=== PATIENT | male | born 1955 | race Two or more races ===

== ENCOUNTER 2021-10-09 17:02 | Inpatient (IN) | payer MEDICARE ==
[~2021-10-09] VITALS: Ht 167.6 cm; Wt 100.1 kg
[~2021-10-09 17:02] MED LIST: LISI20TA18 PO; METF500T16 PO
[2021-10-09] MEDS ORDERED: ASPIRIN 325 MG TABLET PO ONE (17:30)
[2021-10-09] MEDS ORDERED: MORPHINE SULFATE 4 MG/ML INJ. IV/SQ PRN (17:30)
[2021-10-09] MEDS ORDERED: NITROGLYCERIN SUBLINGUAL 0.4 MG BOTTLE OF 25. SL PRN ×2 (17:30→20:00)
[2021-10-09 17:46] LABS: BASO % 0 % (0-3); EOS % 0 % (0-3); HEMATOCRIT 41.9 % (39.0-53.0); HEMOGLOBIN 14.2 g/dL (13.0-17.5); LYMPH # 0.9 x10^3/uL (1.0-4.8); LYMPH % 11 % (24-48); MEAN CORPUSCULAR HEMOGLOBIN 33 pg (25-35); MEAN CORPUSCULAR HGB CONC 34 g/dL (31-37); MEAN CORPUSCULAR VOLUME 97 fL (79-100); MONO # 0.5 x10^3/uL (0.0-1.1); MONO % 6 % (0-9); NEUT # 6.4 x10^3/uL (1.8-7.7); NEUT % 82 % (31-73); PLATELET COUNT 114 x10^3/uL (140-400); RED BLOOD COUNT 4.32 x10^6/uL (4.30-5.70); RED CELL DISTRIBUTION WIDTH 13.2 % (11.5-14.5); WHITE BLOOD COUNT 7.7 x10^3/uL (4.0-11.0)
[2021-10-09 17:55] LABS: CALCIUM 7.9 mg/dL (8.5-10.1); CREATININE 1.2 mg/dL (0.7-1.3); GFR 60.8; POTASSIUM 4.3 mmol/L (3.5-5.1)
[2021-10-09 17:56] LABS: PROTHROMBIN TIME PATIENT 13.9 SEC (11.7-14.0)
[2021-10-09 17:58] LABS: ALBUMIN 3.4 g/dL (3.4-5.0); ALBUMIN/GLOBULIN RATIO 0.9 (1.0-1.7); MAGNESIUM 1.8 mg/dL (1.8-2.4); TOTAL BILIRUBIN 0.9 mg/dL (0.2-1.0); TOTAL PROTEIN 7.3 g/dL (6.4-8.2)
[2021-10-09 17:58] LABS: INFLUENZA A PATIENT NEGATIVE (NEGATIVE); INFLUENZA B PATIENT NEGATIVE (NEGATIVE)
--- NOTE | 2021-10-09 18:36 | PHYS DOC ---
Past Medical History Past Medical History: Diabetes-Type II, High Cholesterol, Hypertension Past Surgical History: Other Additional Past Surgical Histo: BILATERAL KNEE REPAIR Smoking Status: Never Smoker Alcohol Use: None Drug Use: None General Adult EDM: Chief Complaint: CHEST PAIN HPI: HPI: Patient is a 66 year old male with history of diabetes type 2, hypertension, high cholesterol, presenting to the ED today complaining of intermittent left- sided chest pain, symptoms have been going on for 2 months but got worse today. Patient denies any chest pain right now in the ED. Patient is also complaining of shortness of breath and a cough that began 3 days ago, he states his has similar symptoms, he states he had a Covid first dose of Pfizer vaccine around September 27, 2021. Patient denies any fever. He states he was seen by his assistant kitchen manager Dr. Escobar this morning and was scheduled to be seen on Thursday. He states he cannot wait till then because he continues to have this chest pain especially on exertion. Review of Systems: Review of Systems: Constitutional: Denies fever or chills. [] Eyes: Denies change in visual acuity. [] HENT: Denies nasal congestion or sore throat. [] Respiratory: Reports shortness of breath, cough Cardiovascular: Reports left-sided chest pain GI: Denies abdominal pain, nausea, vomiting, bloody stools or diarrhea. [] : Denies dysuria. [] Musculoskeletal: Denies back pain or joint pain. [] Integument: Denies rash. [] Neurologic: Denies headache, focal weakness or sensory changes. [] Endocrine: Denies polyuria or polydipsia. [] Lymphatic: Denies swollen glands. [] Psychiatric: Denies depression or anxiety. [] Heart Score: C/O Chest Pain: N/A Risk Factors: Risk Factors: DM, Current or recent (<one month) smoker, HTN, HLP, family hist ory of CAD, obesity. Risk Scores: Score 0 - 3: 2.5% MACE over next 6 weeks - Discharge Home Score 4 - 6: 20.3% MACE over next 6 weeks - Admit for Clinical Observation Score 7 - 10: 72.7% MACE over next 6 weeks - Early Invasive Strategies Current Medications: Current Medications Medications (Trade) Dose Ordered Sig/Jodi Start Time Stop Time Status Last Admin Dose Admin Aspirin (Aj Aspirin) 325 mg 1X ONCE 10/09/21 17:30 10/09/21 17:31 DC 10/09/21 17:57 325 MG Morphine Sulfate (Morphine Sulfate) 4 mg PRN Q15MIN PRN 10/09/21 17:30 10/10/21 17:29 Nitroglycerin (Nitrostat) 0.4 mg PRN Q5MIN PRN 10/09/21 17:30 10/10/21 17:29 Allergies: Allergies: Allergies Coded Allergies Type Severity Reaction Last Updated Verified No Known Drug Allergies 08/11/14 No Physical Exam: PE: Constitutional: Well developed, well nourished, no acute distress, non-toxic appearance. [] HENT: Normocephalic, atraumatic, bilateral external ears normal, oropharynx moist, no oral exudates, nose normal. [] Eyes: PERRLA, EOMI, conjunctiva normal, no discharge. [] Neck: Normal range of motion, no tenderness, supple, no stridor. [] Cardiovascular:Heart rate regular rhythm, no murmur [] Lungs & Thorax: Bilateral breath sounds clear to auscultation [] Abdomen: Bowel sounds normal, soft, no tenderness, no masses, no pulsatile masses. [] Skin: Warm, dry, no erythema, no rash. [] Back: No tenderness, no CVA tenderness. [] Extremities: No tenderness, no cyanosis, no clubbing, ROM intact, no edema. [] Neurologic: Alert and oriented X 3, normal motor function, normal sensory function, no focal deficits noted. [] Psychologic: Affect normal, judgement normal, mood normal. [] Current Patient Data: Labs: Laboratory Tests Test 10/09/21 17:23 10/09/21 17:30 Influenza Type A Antigen Negative (NEGATIVE) Influenza Type B Antigen Negative (NEGATIVE) SARS-CoV-2 Antigen (Rapid) Positive (NEGATIVE) *A White Blood Count 7.7 x10^3/uL (4.0-11.0) Red Blood Count 4.32 x10^6/uL (4.30-5.70) Hemoglobin 14.2 g/dL (13.0-17.5) Hematocrit 41.9 % (39.0-53.0) Mean Corpuscular Volume 97 fL (79-100) Mean Corpuscular Hemoglobin 33 pg (25-35) Mean Corpuscular Hemoglobin Concent 34 g/dL (31-37) Red Cell Distribution Width 13.2 % (11.5-14.5) Platelet Count 114 x10^3/uL (140-400) L Neutrophils (%) (Auto) 82 % (31-73) H Lymphocytes (%) (Auto) 11 % (24-48) L Monocytes (%) (Auto) 6 % (0-9) Eosinophils (%) (Auto) 0 % (0-3) Basophils (%) (Auto) 0 % (0-3) Neutrophils # (Auto) 6.4 x10^3/uL (1.8-7.7) Lymphocytes # (Auto) 0.9 x10^3/uL (1.0-4.8) L Monocytes # (Auto) 0.5 x10^3/uL (0.0-1.1) Eosinophils # (Auto) 0.0 x10^3/uL (0.0-0.7) Basophils # (Auto) 0.0 x10^3/uL (0.0-0.2) Prothrombin Time 13.9 SEC (11.7-14.0) Prothrombin Time INR 1.1 (0.8-1.1) Activated Partial Thromboplast Time 31 SEC (24-38) Sodium Level 130 mmol/L (136-145) L Potassium Level 4.3 mmol/L (3.5-5.1) Chloride Level 92 mmol/L (98-107) L Carbon Dioxide Level 24 mmol/L (21-32) Anion Gap 14 (6-14) Blood Urea Nitrogen 26 mg/dL (8-26) Creatinine 1.2 mg/dL (0.7-1.3) Estimated GFR (Cockcroft-Gault) 60.8 BUN/Creatinine Ratio 22 (6-20) H Glucose Level 203 mg/dL (70-99) H Calcium Level 7.9 mg/dL (8.5-10.1) L Magnesium Level 1.8 mg/dL (1.8-2.4) Total Bilirubin 0.9 mg/dL (0.2-1.0) Aspartate Amino Transferase (AST) 63 U/L (15-37) H Alanine Aminotransferase (ALT) 56 U/L (16-63) Alkaline Phosphatase 67 U/L (46-116) Troponin I High Sensitivity 8 ng/L (4-75) WU-Mqw-[id number]-Type Natriuretic Peptide 28 pg/mL (0-124) Total Protein 7.3 g/dL (6.4-8.2) Albumin 3.4 g/dL (3.4-5.0) Albumin/Globulin Ratio 0.9 (1.0-1.7) L Thyroid Stimulating Hormone (TSH) 1.541 uIU/mL (0.358-3.74) Laboratory Tests 10/09/21 17:30 Laboratory Tests 10/09/21 17:30 Vital Signs: Vital Signs Date Time Temp Pulse Resp B/P (MAP) Pulse Ox O2 Delivery O2 Flow Rate FiO2 10/09/21 17:06 100.2 108 28 146/75 (98) 92 Room Air 100.2 EKG: EK interpreted by Dr. Rubi sinus tachycardia heart rate 108 no STEMI [] Radiology/Procedures: Radiology/Procedures: [] Course & Med Decision Making: Course & Med Decision Making Pertinent Labs and Imaging studies reviewed. (See chart for details) This is a 66-year-old male patient presented to the ED today complaining of chest pain intermittently for 2 months. Patient is also complaining of cough and shortness of breath, symptoms began 3 days ago. Vitals on arrival to the ED temperature 100.2, heart rate 108, respiration 22 on room air, O2 sats 92%, blood pressure 146/75. EKG is negative for STEMI, first troponin is normal, CBC with a normal WBC, pl atelet 114. CMP with glucose of 205-history of diabetes type 2. COVID19 positive Chest x-ray is pending Spoke with Dr. Dunham who accepted patient for admission Spoke with Dr. Escobar who will follow up with patient Anthony Disclaimer: Anthony Disclaimer: This electronic medical record was generated, in whole or in part, using a voice recognition dictation system. Departure Departure Impression: Primary Impression: Chest pain Qualified Codes: R07.9 - Chest pain, unspecified Additional Impressions: Lab test positive for detection of COVID-19 virus Fever Qualified Codes: R50.9 - Fever, unspecified Disposition: ADMITTED INPATIENT Condition: STABLE Referrals: GANESH GRULLON MD (PCP) CHERELLE MCINTOSH [employer] Oct 09, 2021 18:36
--- NOTE | 2021-10-09 19:47 | PDOC1 ---
History and Physical Date of Service: DOS: DATE: 10/09/21 TIME: 19:41 Chief Complaint: Chief Complain: Chest pain. History of Present Illness: HPI: 66 year old male with history of diabetes type 2, hypertension, high cholesterol, presenting to the ED today complaining of intermittent left-sided chest pain, symptoms have been going on for 2 months but got worse today. Patient denies any chest pain right now in the ED. Patient is also complaining of shortness of breath and a cough that began 2 days ago. Patient denies any fever. He states he was seen by his final cleaner Dr. Escobar this morning and was scheduled to have stent placement on Thursday. He states he cannot wait till then because he continues to have this chest pain especially on exertion. Past Medical/Surgical History: PMH/PSH: Past Medical History: Diabetes-Type II, High Cholesterol, Hypertension Past Surgical History: BILATERAL KNEE REPAIR Allergies: Allergies: Coded Allergies: No Known Drug Allergies (Unverified , 08/11/14) Family History: Family History: Heart disease in the family Social History: Social History: Smoking Status: Never Smoker Alcohol Use: None Drug Use: None Current Medications: Current Medications Current Medications Aspirin (Aj Aspirin) 325 mg 1X ONCE PO Last administered on 10/09/21at 17:57; Start 10/09/21 at 17:30; Stop 10/09/21 at 17:31; Status DC Nitroglycerin (Nitrostat) 0.4 mg PRN Q5MIN PRN SL CP RATING > 1/10; Start 10/09/21 at 17:30; Stop 10/10/21 at 17:29 Morphine Sulfate (Morphine Sulfate) 4 mg PRN Q15MIN PRN IV/SQ PAIN GREATER THAN 3/10; Start 10/09/21 at 17:30; Stop 10/10/21 at 17:29 Active Scripts Active Reported Lisinopril 20 Mg Tablet 1 Tab PO DAILY Metformin Hcl 500 Mg Tablet 1 Tab PO BID ROS: Review of Systems Review of System REVIEW OF SYSTEMS: GENERAL: Denies weakness SKIN: No bruising, hair changes or rashes. EYES: No blurred, double or loss of vision. NOSE AND THROAT: No history of nosebleeds, hoarseness or sore throat. HEART: No history of palpitations, chest pain or shortness of breath on exertion. LUNGS: Denies cough, hemoptysis, wheezing or shortness of breath. GASTROINTESTINAL: Denies changes in appetite, nausea, vomiting, diarrhea or constipation. GENITOURINARY: No history of frequency, urgency, hesitancy or nocturia. NEUROLOGIC: Denies history of numbness, tingling, or tremor. PSYCHIATRIC: No history of panic, anxiety or depression. ENDOCRINE: No history of heat or cold intolerance, polyuria or polydipsia. EXTREMITIES: Denies joint pain, pain on walking or stiffness. Physical Exam: Vital Signs: Vital Signs Date Time Temp Pulse Resp B/P (MAP) Pulse Ox O2 Delivery O2 Flow Rate FiO2 10/09/21 17:06 100.2 108 28 146/75 (98) 92 Room Air 100.2 Physcial Exam: General: Well developed, well nourished, no acute distress, well appearing HEENT: Pupils equally round and reactive to light, EOMI, no discharge, normal conjunctiva Neck: Supple, no nuchal rigidity, no JVD, trachea midline, no tenderness Cardiac: RRR, no murmurs, no gallops, no rubs Chest/Lungs: CTAB, no wheeze, no rhonchi, no crackles Abdomen: soft, non-distended, no guarding, no peritoneal signs, non-tender Back: No tenderness Extremities: no edema, pulses intact, non-tender,capillary refill <3 sec bilateral upper and lower extremities, Neuro: Alert and oriented x 4, no focal deficits, normal speech Labs: Labs: Laboratory Tests Test 10/09/21 17:23 10/09/21 17:30 Influenza Type A Antigen Negative (NEGATIVE) Influenza Type B Antigen Negative (NEGATIVE) SARS-CoV-2 Antigen (Rapid) Positive (NEGATIVE) White Blood Count 7.7 x10^3/uL (4.0-11.0) Red Blood Count 4.32 x10^6/uL (4.30-5.70) Hemoglobin 14.2 g/dL (13.0-17.5) Hematocrit 41.9 % (39.0-53.0) Mean Corpuscular Volume 97 fL (79-100) Mean Corpuscular Hemoglobin 33 pg (25-35) Mean Corpuscular Hemoglobin Concent 34 g/dL (31-37) Red Cell Distribution Width 13.2 % (11.5-14.5) Platelet Count 114 x10^3/uL (140-400) Neutrophils (%) (Auto) 82 % (31-73) Lymphocytes (%) (Auto) 11 % (24-48) Monocytes (%) (Auto) 6 % (0-9) Eosinophils (%) (Auto) 0 % (0-3) Basophils (%) (Auto) 0 % (0-3) Neutrophils # (Auto) 6.4 x10^3/uL (1.8-7.7) Lymphocytes # (Auto) 0.9 x10^3/uL (1.0-4.8) Monocytes # (Auto) 0.5 x10^3/uL (0.0-1.1) Eosinophils # (Auto) 0.0 x10^3/uL (0.0-0.7) Basophils # (Auto) 0.0 x10^3/uL (0.0-0.2) Prothrombin Time 13.9 SEC (11.7-14.0) Prothromb Time International Ratio 1.1 (0.8-1.1) Activated Partial Thromboplast Time 31 SEC (24-38) Sodium Level 130 mmol/L (136-145) Potassium Level 4.3 mmol/L (3.5-5.1) Chloride Level 92 mmol/L (98-107) Carbon Dioxide Level 24 mmol/L (21-32) Anion Gap 14 (6-14) Blood Urea Nitrogen 26 mg/dL (8-26) Creatinine 1.2 mg/dL (0.7-1.3) Estimated GFR (Cockcroft-Gault) 60.8 BUN/Creatinine Ratio 22 (6-20) Glucose Level 203 mg/dL (70-99) Calcium Level 7.9 mg/dL (8.5-10.1) Magnesium Level 1.8 mg/dL (1.8-2.4) Total Bilirubin 0.9 mg/dL (0.2-1.0) Aspartate Amino Transf (AST/SGOT) 63 U/L (15-37) Alanine Aminotransferase (ALT/SGPT) 56 U/L (16-63) Alkaline Phosphatase 67 U/L (46-116) Troponin I High Sensitivity 8 ng/L (4-75) WD-Dnm-A-Type Natriuretic Peptide 28 pg/mL (0-124) Total Protein 7.3 g/dL (6.4-8.2) Albumin 3.4 g/dL (3.4-5.0) Albumin/Globulin Ratio 0.9 (1.0-1.7) Thyroid Stimulating Hormone (TSH) 1.541 uIU/mL (0.358-3.74) Laboratory Tests Test 10/09/21 17:23 10/09/21 17:30 Influenza Type A Antigen Negative (NEGATIVE) Influenza Type B Antigen Negative (NEGATIVE) SARS-CoV-2 Antigen (Rapid) Positive (NEGATIVE) White Blood Count 7.7 x10^3/uL (4.0-11.0) Red Blood Count 4.32 x10^6/uL (4.30-5.70) Hemoglobin 14.2 g/dL (13.0-17.5) Hematocrit 41.9 % (39.0-53.0) Mean Corpuscular Volume 97 fL (79-100) Mean Corpuscular Hemoglobin 33 pg (25-35) Mean Corpuscular Hemoglobin Concent 34 g/dL (31-37) Red Cell Distribution Width 13.2 % (11.5-14.5) Platelet Count 114 x10^3/uL (140-400) Neutrophils (%) (Auto) 82 % (31-73) Lymphocytes (%) (Auto) 11 % (24-48) Monocytes (%) (Auto) 6 % (0-9) Eosinophils (%) (Auto) 0 % (0-3) Basophils (%) (Auto) 0 % (0-3) Neutrophils # (Auto) 6.4 x10^3/uL (1.8-7.7) Lymphocytes # (Auto) 0.9 x10^3/uL (1.0-4.8) Monocytes # (Auto) 0.5 x10^3/uL (0.0-1.1) Eosinophils # (Auto) 0.0 x10^3/uL (0.0-0.7) Basophils # (Auto) 0.0 x10^3/uL (0.0-0.2) Prothrombin Time 13.9 SEC (11.7-14.0) Prothromb Time International Ratio 1.1 (0.8-1.1) Activated Partial Thromboplast Time 31 SEC (24-38) Sodium Level 130 mmol/L (136-145) Potassium Level 4.3 mmol/L (3.5-5.1) Chloride Level 92 mmol/L (98-107) Carbon Dioxide Level 24 mmol/L (21-32) Anion Gap 14 (6-14) Blood Urea Nitrogen 26 mg/dL (8-26) Creatinine 1.2 mg/dL (0.7-1.3) Estimated GFR (Cockcroft-Gault) 60.8 BUN/Creatinine Ratio 22 (6-20) Glucose Level 203 mg/dL (70-99) Calcium Level 7.9 mg/dL (8.5-10.1) Magnesium Level 1.8 mg/dL (1.8-2.4) Total Bilirubin 0.9 mg/dL (0.2-1.0) Aspartate Amino Transf (AST/SGOT) 63 U/L (15-37) Alanine Aminotransferase (ALT/SGPT) 56 U/L (16-63) Alkaline Phosphatase 67 U/L (46-116) Troponin I High Sensitivity 8 ng/L (4-75) QU-Wns-J-Type Natriuretic Peptide 28 pg/mL (0-124) Total Protein 7.3 g/dL (6.4-8.2) Albumin 3.4 g/dL (3.4-5.0) Albumin/Globulin Ratio 0.9 (1.0-1.7) Thyroid Stimulating Hormone (TSH) 1.541 uIU/mL (0.358-3.74) Images: Images PROCEDURE: PORTABLE CHEST 1V Study: XR CHEST 1V Indication: Chest pain. Comparison: 08/03/2014 Findings: Low lung volumes with bronchovascular crowding. Lordotic beam angulation. Streaky opacities at left more so than right lung bases. No layering effusion or pneumothorax. Accentuation of cardiomediastinal silhouette size due to low lung volumes and AP technique. Gas containing bowel seen below the diaphragm without pathologic dilatation. Impression: Low lung volumes with presumed atelectasis at the left more so than right lung bases noting that the appearance is nonspecific and infectious infiltrates or aspiration could appear similar. Assessment/Plan Assessment/Plan Atypical chest pain, rule out ACS Acute electrolyte derangementhyponatremia, hypochloremia suggestive of volume depletion COVID-19 infection Hyperglycemia Thrombocytopenia History of type 2 diabetes mellitus History of hypertension History of dyslipidemia Admit to hospitalist service for observation Continue telemetry monitoring Trend troponins Continue IV fluids R ISS and Accu-Cheks SCD for DVT prophylaxis Protonix GI prophylaxis ADA diet CODE STATUS full Discussed with RN and SW Disposition inpatient management as above DPOA: In addition to my E/M visit, advance care planning done with A total time of 20 minutes was spent from 630 to 640 face to face in discussion regarding the patient's goals of care, CODE STATUS. Justifications for Admission Other Justification DAMIEN DIAZ MD Oct 09, 2021 19:47
[2021-10-09] MEDS ORDERED: ACETAMINOPHEN 325 MG TABLET. PO PRN (20:00)
[2021-10-09] MEDS ORDERED: ONDANSETRON PF 4 MG/2 ML VIAL. IVP PRN ×2 (20:00→21:15)
[2021-10-09] MEDS ORDERED: MORPHINE SULFATE 4 MG/ML INJ. IVP PRN (20:00)
[2021-10-09] MEDS ORDERED: ACETAMINOPHEN 500 MG TABLET PO ONE (20:00)
[2021-10-09] MEDS ORDERED: IV NORMAL SALINE 1000ML BAG 1,000 ML IV ONE (20:00)
[2021-10-09] MEDS ORDERED: FAMOTIDINE 20 MG/2 ML VIAL IVP ONE (20:30)
--- NOTE | 2021-10-09 20:54 | RAD ---
Study: XR CHEST 1V Indication: Chest pain. Comparison: 08/03/2014 Findings: Low lung volumes with bronchovascular crowding. Lordotic beam angulation. Streaky opacities at left more so than right lung bases. No layering effusion or pneumothorax. Accent uation of cardiomediastinal silhouette size due to low lung volumes and AP technique. Gas containing bowel seen below the diaphragm without pathologic dilatation. Impression: Low lung volumes with presumed atelectasis at the left more so than right lung bases noting that the appearance is nonspecific and infectious infiltrates or aspiration could appear similar. Electronically signed by: RAVIN JOHNSON MD (10/09/2021 8:52 PM) [facility]
[2021-10-09] MEDS ORDERED: MORPHINE SULFATE 2 MG/ML INJ. IVP PRN (21:15)
[2021-10-09] MEDS ORDERED: ZOLPIDEM 5 MG TABLET. PO PRN (21:15)
[2021-10-09] MEDS ORDERED: PROCHLORPERAZINE 10 MG/2 ML VIAL. IV PRN (21:15)
[2021-10-09] MEDS ORDERED: SENNOSIDES 8.6 MG TABLET PO PRN (21:15)
[2021-10-09] MEDS ORDERED: DEXTROSE 50% 25 GM / 50ML DISP.SYRIN. IV PRN (21:15)
[2021-10-09] MEDS ORDERED: diphenhydrAMINE 50 MG/ML VIAL IVP PRN (21:15)
[2021-10-09] MEDS ORDERED: diphenhydrAMINE HCL 25 MG CAPSULE PO PRN (21:15)
[2021-10-09] MEDS: ENOXAPARIN 40 MG/0.4 ML SYRINGE. SQ SCH (23:04)
[2021-10-10 02:35] VITALS: BP 118/71
[2021-10-10] MEDS ORDERED: ATOR10TA PO (03:39)
[2021-10-10 04:56] LABS: BASO % 0 % (0-3); EOS % 0 % (0-3); HEMATOCRIT 36.3 % (39.0-53.0); HEMOGLOBIN 12.3 g/dL (13.0-17.5); LYMPH % 14 % (24-48); MEAN CORPUSCULAR HEMOGLOBIN 33 pg (25-35); MEAN CORPUSCULAR HGB CONC 34 g/dL (31-37); MEAN CORPUSCULAR VOLUME 98 fL (79-100); MONO # 0.5 x10^3/uL (0.0-1.1); MONO % 7 % (0-9); NEUT # 5.4 x10^3/uL (1.8-7.7); NEUT % 78 % (31-73); PLATELET COUNT 100 x10^3/uL (140-400); RED BLOOD COUNT 3.72 x10^6/uL (4.30-5.70); RED CELL DISTRIBUTION WIDTH 12.8 % (11.5-14.5); WHITE BLOOD COUNT 6.9 x10^3/uL (4.0-11.0)
[2021-10-10 05:22] LABS: ALBUMIN 2.7 g/dL (3.4-5.0); ALBUMIN/GLOBULIN RATIO 0.6 (1.0-1.7); CALCIUM 7.4 mg/dL (8.5-10.1); CREATININE 0.9 mg/dL (0.7-1.3); GFR 84.7; MAGNESIUM 1.8 mg/dL (1.8-2.4); TOTAL BILIRUBIN 0.8 mg/dL (0.2-1.0); TOTAL PROTEIN 6.9 g/dL (6.4-8.2)
[2021-10-10 05:33] LABS: POTASSIUM 3.8 mmol/L (3.5-5.1)
[2021-10-10 07:00] VITALS: BP 145/73
[2021-10-10] MEDS: INSULIN LISPRO 300 UNITS/3 ML VIAL. SQ SCH ×3 (08:00→17:10)
[2021-10-10] MEDS ORDERED: ASPIRIN 325 MG TABLET PO SCH (08:00)
--- NOTE | 2021-10-10 08:34 | EKG ---
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
[2021-10-10] MEDS: IV NORMAL SALINE 1000ML BAG 1,000 ML IV SCH ×2 (09:02→19:59)
[2021-10-10] MEDS: ACETAMINOPHEN 325 MG TABLET. PO PRN (09:07)
[2021-10-10] MEDS: cefTRIAXone IV Push 1 GM VIAL. IVP SCH (09:53)
[2021-10-10] MEDS: metFORMIN 500 MG TABLET PO SCH ×2 (09:54→17:08)
[2021-10-10] MEDS: DEXAMETHASONE SOD PHOS 4 MG/ML VIAL IVP SCH (09:54)
[2021-10-10] MEDS: LISINOPRIL 20 MG TABLET PO SCH (09:54)
--- NOTE | 2021-10-10 10:44 | PDOC2 ---
CHAITANYA LANZA EMERGENCY SERVICES DISPATCHER 10/10/21 1044: CARDIAC CONSULT DATE OF CONSULT Date of Consult DATE: 10/10/21 TIME: 10:28 REASON FOR CONSULT Reason for Consult: Chest pain REFERRING PHYSICIAN Referring Physician: Morena SOURCE Source: Chart review, Patient HISTORY OF PRESENT ILLNESS HISTORY OF PRESENT ILLNESS This is a pleasant 66 yo male admitted for complains of chest pain. Reports that in the last month he has been having chest pressure and also SOA particularly with exertion. He typically exercise which for the most part involved a lot of stretching and so far with just this activity he feels exhausted. In the last week this has intesified and has been having more SOA and also some chills at home and nonproductive cough. He was seen in our office yesterday and ischemic workup was discussed. He came to ED and has been tested positive for covid-19. He is diabetic with strong family history of CAD in the 60s. Denies any recent surgery. He actually had his first covid-19 shot 2 weeks ago. He also has been having episodes of nausea. PAST MEDICAL HISTORY Cardiovascular: HTN, Hyperlipidemia GI: Hemorrhoids Musculoskeletal: Osteoarthritis ENT: Other (Hay fever) Endocrine: Diabetes (2) PAST SURGICAL HISTORY Past Surgical History: Arthroscopy (bilateral knee) FAMILY HISTORY Family History: Coronary Artery Disease (brothers) SOCIAL HISTORY Smoke: No ALCOHOL: none Drugs: None Lives: with Family CURRENT MEDICATIONS CURRENT MEDICATIONS Current Medications Medications (Trade) Dose Ordered Sig/Jodi Route PRN Reason Start Time Stop Time Status Last Admin Dose Admin Aspirin (Aj Aspirin) 325 mg 1X ONCE PO 10/09/21 17:30 10/09/21 17:31 DC 10/09/21 17:57 Acetaminophen (Tylenol) 1,000 mg 1X ONCE PO 10/09/21 20:00 10/09/21 20:01 DC 10/09/21 21:03 Sodium Chloride 1,000 ml @ 75 mls/hr 1X ONCE IV 10/09/21 20:00 10/10/21 09:19 DC 10/09/21 21:04 Famotidine (Pepcid Vial) 20 mg 1X ONCE IVP 10/09/21 20:30 10/09/21 20:31 DC 10/09/21 21:04 Aspirin (Aj Aspirin) 325 mg DAILYWBKFT PO 10/10/21 08:00 10/10/21 09:07 Acetaminophen (Tylenol) 650 mg PRN Q4HRS PRN PO TEMP OVER 100.4F OR MILD PAIN 10/09/21 21:15 10/10/21 09:07 Enoxaparin Sodium (Lovenox 40mg Syringe) 40 mg Q24H SQ 10/09/21 21:00 10/09/21 23:04 Lisinopril (Prinivil) 20 mg DAILY PO 10/10/21 10:00 10/10/21 09:54 Metformin HCl (Glucophage) 500 mg BIDWMEALS PO 10/10/21 10:00 10/10/21 09:54 Dexamethasone Sodium Phosphate (Decadron) 6 mg DAILY IVP 10/10/21 10:00 10/10/21 09:54 Ceftriaxone Sodium (Rocephin) 1 gm Q24H IVP 10/10/21 10:00 10/10/21 09:53 ALLERGIES ALLERGIES: Coded Allergies: No Known Drug Allergies (Unverified , 08/11/14) ROS Review of System 14 point ROS evaluated with pertinent positives noted per HPI PHYSICAL EXAM General: Alert, Oriented X3, Cooperative, No acute distress HEENT: Atraumatic, Mucous membr. moist/pink Lungs: Clear to auscultation, Normal air movement Heart: Regular rate, Normal S1, Normal S2, No murmurs Abdomen: Soft, No tenderness, Other (truncakl obesity) Extremities: No cyanosis, No edema Skin: No breakdown, No significant lesion Neuro: Normal speech, Sensation intact Psych/Mental Status: Mental status NL, Mood NL MUSCULOSKELETAL: Osteoarthritic changes both hands VITALS/I&O VITALS/I&O: Vital Signs Date Time Temp Pulse Resp B/P (MAP) Pulse Ox O2 Delivery O2 Flow Rate FiO2 10/10/21 09:54 87 145/73 10/10/21 07:00 100.5 20 93 Room Air 100.5 I & O 10/09/21 10/09/21 10/10/21 15:00 23:00 07:00 Intake Total 0 ml Balance 0 ml LABS Lab: Laboratory Tests Test 10/09/21 17:23 10/09/21 17:30 10/09/21 20:40 10/09/21 23:40 Influenza Type A Antigen Negative (NEGATIVE) Influenza Type B Antigen Negative (NEGATIVE) SARS-CoV-2 Antigen (Rapid) Positive (NEGATIVE) *A White Blood Count 7.7 x10^3/uL (4.0-11.0) Red Blood Count 4.32 x10^6/uL (4.30-5.70) Hemoglobin 14.2 g/dL (13.0-17.5) Hematocrit 41.9 % (39.0-53.0) Mean Corpuscular Volume 97 fL (79-100) Mean Corpuscular Hemoglobin 33 pg (25-35) Mean Corpuscular Hemoglobin Concent 34 g/dL (31-37) Red Cell Distribution Width 13.2 % (11.5-14.5) Platelet Count 114 x10^3/uL (140-400) L Neutrophils (%) (Auto) 82 % (31-73) H Lymphocytes (%) (Auto) 11 % (24-48) L Monocytes (%) (Auto) 6 % (0-9) Eosinophils (%) (Auto) 0 % (0-3) Basophils (%) (Auto) 0 % (0-3) Neutrophils # (Auto) 6.4 x10^3/uL (1.8-7.7) Lymphocytes # (Auto) 0.9 x10^3/uL (1.0-4.8) L Monocytes # (Auto) 0.5 x10^3/uL (0.0-1.1) Eosinophils # (Auto) 0.0 x10^3/uL (0.0-0.7) Basophils # (Auto) 0.0 x10^3/uL (0.0-0.2) Prothrombin Time 13.9 SEC (11.7-14.0) Prothrombin Time INR 1.1 (0.8-1.1) Activated Partial Thromboplast Time 31 SEC (24-38) Sodium Level 130 mmol/L (136-145) L Potassium Level 4.3 mmol/L (3.5-5.1) Chloride Level 92 mmol/L (98-107) L Carbon Dioxide Level 24 mmol/L (21-32) Anion Gap 14 (6-14) Blood Urea Nitrogen 26 mg/dL (8-26) Creatinine 1.2 mg/dL (0.7-1.3) Estimated GFR (Cockcroft-Gault) 60.8 BUN/Creatinine Ratio 22 (6-20) H Glucose Level 203 mg/dL (70-99) H Calcium Level 7.9 mg/dL (8.5-10.1) L Magnesium Level 1.8 mg/dL (1.8-2.4) Total Bilirubin 0.9 mg/dL (0.2-1.0) Aspartate Amino Transferase (AST) 63 U/L (15-37) H Alanine Aminotransferase (ALT) 56 U/L (16-63) Alkaline Phosphatase 67 U/L (46-116) Troponin I High Sensitivity 8 ng/L (4-75) 8 ng/L (4-75) 9 ng/L (4-75) EN-Tnr-K-Type Natriuretic Peptide 28 pg/mL (0-124) Total Protein 7.3 g/dL (6.4-8.2) Albumin 3.4 g/dL (3.4-5.0) Albumin/Globulin Ratio 0.9 (1.0-1.7) L Thyroid Stimulating Hormone (TSH) 1.541 uIU/mL (0.358-3.74) Lactic Acid Level 2.4 mmol/L (0.4-2.0) H 1.8 mmol/L (0.4-2.0) Test 10/10/21 04:25 10/10/21 09:01 White Blood Count 6.9 x10^3/uL (4.0-11.0) Red Blood Count 3.72 x10^6/uL (4.30-5.70) L Hemoglobin 12.3 g/dL (13.0-17.5) L Hematocrit 36.3 % (39.0-53.0) L Mean Corpuscular Volume 98 fL (79-100) Mean Corpuscular Hemoglobin 33 pg (25-35) Mean Corpuscular Hemoglobin Concent 34 g/dL (31-37) Red Cell Distribution Width 12.8 % (11.5-14.5) Platelet Count 100 x10^3/uL (140-400) L Neutrophils (%) (Auto) 78 % (31-73) H Lymphocytes (%) (Auto) 14 % (24-48) L Monocytes (%) (Auto) 7 % (0-9) Eosinophils (%) (Auto) 0 % (0-3) Basophils (%) (Auto) 0 % (0-3) Neutrophils # (Auto) 5.4 x10^3/uL (1.8-7.7) Lymphocytes # (Auto) 1.0 x10^3/uL (1.0-4.8) Monocytes # (Auto) 0.5 x10^3/uL (0.0-1.1) Eosinophils # (Auto) 0.0 x10^3/uL (0.0-0.7) Basophils # (Auto) 0.0 x10^3/uL (0.0-0.2) Sodium Level 131 mmol/L (136-145) L Potassium Level 3.8 mmol/L (3.5-5.1) Chloride Level 95 mmol/L (98-107) L Carbon Dioxide Level 26 mmol/L (21-32) Anion Gap 10 (6-14) Blood Urea Nitrogen 20 mg/dL (8-26) Creatinine 0.9 mg/dL (0.7-1.3) Estimated GFR (Cockcroft-Gault) 84.7 BUN/Creatinine Ratio 22 (6-20) H Glucose Level 107 mg/dL (70-99) H Calcium Level 7.4 mg/dL (8.5-10.1) L Phosphorus Level 3.0 mg/dL (2.6-4.7) Magnesium Level 1.8 mg/dL (1.8-2.4) Total Bilirubin 0.8 mg/dL (0.2-1.0) Aspartate Amino Transferase (AST) 51 U/L (15-37) H Alanine Aminotransferase (ALT) 45 U/L (16-63) Alkaline Phosphatase 58 U/L (46-116) Total Protein 6.9 g/dL (6.4-8.2) Albumin 2.7 g/dL (3.4-5.0) L Albumin/Globulin Ratio 0.6 (1.0-1.7) L Glucose (Fingerstick) 130 mg/dL (70-99) H Laboratory Tests 10/09/21 17:30 10/10/21 04:25 Laboratory Tests 10/09/21 17:30 10/10/21 04:25 ASSESSMENT/PLAN ASSESSMENT/PLAN 1. Chest pain: unstable angina features even before covid-19 2 Covid-19/fever: vaccinated x1 pfizer 2 weeks ago 3. HTN: controlled 4. HLP 5. DM2 6. Strong family hx of CAD 7. Morbid obesity Recommendations 1. Discussed with PCP, start with covid-19 treatment 2. Given his significant cardiac risk factors with worsening UA features and hypercoagulable predisposition with covid 19 will plan for LHC on Thursday after sufficient covid-19 treatment 3. Secondary prevention measures. KIYA MEADOWS MD 10/10/21 1813: CARDIAC CONSULT ASSESSMENT/PLAN ASSESSMENT/PLAN Patient seen and examined. Agree with DRIER FEEDER's assessment and plan. Continue current treatment for covid per pulm CP features consistent with unstable angina - agree with cardiac cath and possible PCI Thank you for your consultation CHAITANYA LANZA APRN Oct 10, 2021 10:44 KIYA PICKETT MD Oct 10, 2021 18:13
[2021-10-10 11:00] VITALS: BP 118/70
--- NOTE | 2021-10-10 12:27 | PDOC ---
[facility] PROGRESS NOTE Date of Service DOS: DATE: 10/10/21 TIME: 12:24 Chief Complaint Chief Complaint Atypical chest pain, rule out ACS Acute electrolyte derangementhyponatremia, hypochloremia suggestive of volume depletion COVID-19 infection Hyperglycemia Thrombocytopenia History of type 2 diabetes mellitus History of hypertension History of dyslipidemia COVID -19 Admit to hospitalist service for observation Continue telemetry monitoring Trend troponins Continue IV fluids Cardiology consulted planning for intervention on Thursday after few days of Covid treatment. R ISS and Accu-Cheks SCD for DVT prophylaxis Protonix GI prophylaxis Start Decadron Rocephin for Covid. Does not meet criteria for remdesivir right now. If he does can start then. ADA diet CODE STATUS full Discussed with RN and SW Disposition inpatient management as above DPOA: History of Present Illness History of Present Illness 10/10 Patient evaluate examined at bedside. Was resting in bed really coughing. Informed of reason procedure pushed to Thursday with Covid positive. He understood well. Will start dexamethasone and Rocephin for Covid positivity. Rocephin cover any bacterial pneumonias. As needed cough medicine. If he starts require oxygen can start remdesivir then. Otherwise continue to follow. Up ad felicity. Vitals/I&O Vitals/I&O: Vital Signs Date Time Temp Pulse Resp B/P (MAP) Pulse Ox O2 Delivery O2 Flow Rate FiO2 10/10/21 11:00 99.0 93 20 118/70 (86) 91 Room Air 99.0 I & O 10/09/21 10/09/21 10/10/21 15:00 23:00 07:00 Intake Total 0 ml Balance 0 ml Physical Exam General: Alert, Oriented X3, Cooperative, No acute distress Heart: Regular rate, Normal S1, Normal S2, No murmurs Lungs: Clear Abdomen: Soft, No tenderness, Other (truncakl obesity) Extremities: No cyanosis, No edema Skin: No breakdown, No significant lesion Labs Labs: Laboratory Tests Test 10/09/21 17:23 10/09/21 17:30 10/09/21 20:40 10/09/21 23:40 Influenza Type A Antigen Negative (NEGATIVE) Influenza Type B Antigen Negative (NEGATIVE) SARS-CoV-2 Antigen (Rapid) Positive (NEGATIVE) White Blood Count 7.7 x10^3/uL (4.0-11.0) Red Blood Count 4.32 x10^6/uL (4.30-5.70) Hemoglobin 14.2 g/dL (13.0-17.5) Hematocrit 41.9 % (39.0-53.0) Mean Corpuscular Volume 97 fL (79-100) Mean Corpuscular Hemoglobin 33 pg (25-35) Mean Corpuscular Hemoglobin Concent 34 g/dL (31-37) Red Cell Distribution Width 13.2 % (11.5-14.5) Platelet Count 114 x10^3/uL (140-400) Neutrophils (%) (Auto) 82 % (31-73) Lymphocytes (%) (Auto) 11 % (24-48) Monocytes (%) (Auto) 6 % (0-9) Eosinophils (%) (Auto) 0 % (0-3) Basophils (%) (Auto) 0 % (0-3) Neutrophils # (Auto) 6.4 x10^3/uL (1.8-7.7) Lymphocytes # (Auto) 0.9 x10^3/uL (1.0-4.8) Monocytes # (Auto) 0.5 x10^3/uL (0.0-1.1) Eosinophils # (Auto) 0.0 x10^3/uL (0.0-0.7) Basophils # (Auto) 0.0 x10^3/uL (0.0-0.2) Prothrombin Time 13.9 SEC (11.7-14.0) Prothromb Time International Ratio 1.1 (0.8-1.1) Activated Partial Thromboplast Time 31 SEC (24-38) Sodium Level 130 mmol/L (136-145) Potassium Level 4.3 mmol/L (3.5-5.1) Chloride Level 92 mmol/L (98-107) Carbon Dioxide Level 24 mmol/L (21-32) Anion Gap 14 (6-14) Blood Urea Nitrogen 26 mg/dL (8-26) Creatinine 1.2 mg/dL (0.7-1.3) Estimated GFR (Cockcroft-Gault) 60.8 BUN/Creatinine Ratio 22 (6-20) Glucose Level 203 mg/dL (70-99) Calcium Level 7.9 mg/dL (8.5-10.1) Magnesium Level 1.8 mg/dL (1.8-2.4) Total Bilirubin 0.9 mg/dL (0.2-1.0) Aspartate Amino Transf (AST/SGOT) 63 U/L (15-37) Alanine Aminotransferase (ALT/SGPT) 56 U/L (16-63) Alkaline Phosphatase 67 U/L (46-116) Troponin I High Sensitivity 8 ng/L (4-75) 8 ng/L (4-75) 9 ng/L (4-75) KJ-Jja-H-Type Natriuretic Peptide 28 pg/mL (0-124) Total Protein 7.3 g/dL (6.4-8.2) Albumin 3.4 g/dL (3.4-5.0) Albumin/Globulin Ratio 0.9 (1.0-1.7) Thyroid Stimulating Hormone (TSH) 1.541 uIU/mL (0.358-3.74) Lactic Acid Level 2.4 mmol/L (0.4-2.0) 1.8 mmol/L (0.4-2.0) Test 10/10/21 04:25 10/10/21 09:01 10/10/21 12:11 White Blood Count 6.9 x10^3/uL (4.0-11.0) Red Blood Count 3.72 x10^6/uL (4.30-5.70) Hemoglobin 12.3 g/dL (13.0-17.5) Hematocrit 36.3 % (39.0-53.0) Mean Corpuscular Volume 98 fL (79-100) Mean Corpuscular Hemoglobin 33 pg (25-35) Mean Corpuscular Hemoglobin Concent 34 g/dL (31-37) Red Cell Distribution Width 12.8 % (11.5-14.5) Platelet Count 100 x10^3/uL (140-400) Neutrophils (%) (Auto) 78 % (31-73) Lymphocytes (%) (Auto) 14 % (24-48) Monocytes (%) (Auto) 7 % (0-9) Eosinophils (%) (Auto) 0 % (0-3) Basophils (%) (Auto) 0 % (0-3) Neutrophils # (Auto) 5.4 x10^3/uL (1.8-7.7) Lymphocytes # (Auto) 1.0 x10^3/uL (1.0-4.8) Monocytes # (Auto) 0.5 x10^3/uL (0.0-1.1) Eosinophils # (Auto) 0.0 x10^3/uL (0.0-0.7) Basophils # (Auto) 0.0 x10^3/uL (0.0-0.2) Sodium Level 131 mmol/L (136-145) Potassium Level 3.8 mmol/L (3.5-5.1) Chloride Level 95 mmol/L (98-107) Carbon Dioxide Level 26 mmol/L (21-32) Anion Gap 10 (6-14) Blood Urea Nitrogen 20 mg/dL (8-26) Creatinine 0.9 mg/dL (0.7-1.3) Estimated GFR (Cockcroft-Gault) 84.7 BUN/Creatinine Ratio 22 (6-20) Glucose Level 107 mg/dL (70-99) Calcium Level 7.4 mg/dL (8.5-10.1) Phosphorus Level 3.0 mg/dL (2.6-4.7) Magnesium Level 1.8 mg/dL (1.8-2.4) Total Bilirubin 0.8 mg/dL (0.2-1.0) Aspartate Amino Transf (AST/SGOT) 51 U/L (15-37) Alanine Aminotransferase (ALT/SGPT) 45 U/L (16-63) Alkaline Phosphatase 58 U/L (46-116) Total Protein 6.9 g/dL (6.4-8.2) Albumin 2.7 g/dL (3.4-5.0) Albumin/Globulin Ratio 0.6 (1.0-1.7) Glucose (Fingerstick) 130 mg/dL (70-99) 180 mg/dL (70-99) Assessment and Plan Assessmemt and Plan Problems Medical Problems: (1) Chest pain Status: Acute (2) Fever Status: Acute (3) Lab test positive for detection of COVID-19 virus Status: Acute Comment Review of Relevant I have reviewed the following items ob (where applicable) has been applied. Medications: Current Medications Medications (Trade) Dose Ordered Sig/Jodi Route PRN Reason Start Time Stop Time Status Last Admin Dose Admin Aspirin (Aj Aspirin) 325 mg 1X ONCE PO 10/09/21 17:30 1/26/22 17:31 DC 10/09/21 17:57 Acetaminophen (Tylenol) 1,000 mg 1X ONCE PO 10/09/21 20:00 10/09/21 20:01 DC 10/09/21 21:03 Sodium Chloride 1,000 ml @ 75 mls/hr 1X ONCE IV 10/09/21 20:00 10/10/21 09:19 DC 10/09/21 21:04 Famotidine (Pepcid Vial) 20 mg 1X ONCE IVP 10/09/21 20:30 10/09/21 20:31 DC 10/09/21 21:04 Aspirin (Aj Aspirin) 325 mg DAILYWBKFT PO 10/10/21 08:00 10/10/21 10:44 DC 10/10/21 09:07 Insulin Human Lispro (HumaLOG) 0-9 UNITS TIDWMEALS SQ 10/10/21 08:00 10/10/21 12:16 Acetaminophen (Tylenol) 650 mg PRN Q4HRS PRN PO TEMP OVER 100.4F OR MILD PAIN 10/09/21 21:15 10/10/21 09:07 Enoxaparin Sodium (Lovenox 40mg Syringe) 40 mg Q24H SQ 10/09/21 21:00 10/09/21 23:04 Lisinopril (Prinivil) 20 mg DAILY PO 10/10/21 10:00 10/10/21 09:54 Metformin HCl (Glucophage) 500 mg BIDWMEALS PO 10/10/21 10:00 10/10/21 09:54 Dexamethasone Sodium Phosphate (Decadron) 6 mg DAILY IVP 10/10/21 10:00 10/10/21 09:54 Ceftriaxone Sodium (Rocephin) 1 gm Q24H IVP 10/10/21 10:00 10/10/21 09:53 Justifications for Admission Other Justification Chest pain. NIKOLAI STANLEY MD Oct 10, 2021 12:27
--- NOTE | 2021-10-10 13:11 | NUR ---
SS following for discharge planning. SS reviewed pt chart and discussed with pt RN. Pt is from home with spouse and is currently on room air. Cardiology consulted. COVID19 positive. Pt on IV Rocephin and IV Decadron. Heart cath tentatively scheduled for 10/14/2021. SS will continue to follow for discharge planning.
[2021-10-10 15:00] VITALS: BP 128/72
[2021-10-10] MEDS: guaiFENesin/CODEINE 100mg/10mg 5 ML LIQUID PO PRN ×2 (15:57→21:53)
[2021-10-10 19:00] VITALS: BP 128/79
[2021-10-10] MEDS: ATORVASTATIN CALCIUM 10 MG TABLET. PO SCH (19:58)
[2021-10-10] MEDS: ENOXAPARIN 40 MG/0.4 ML SYRINGE. SQ SCH (19:59)
[2021-10-10] MEDS: LORazepam 0.5 MG TABLET PO PRN (21:01)
[2021-10-10 22:44] VITALS: BP 131/82
[2021-10-11] MEDS: MORPHINE SULFATE 2 MG/ML INJ. IV PRN (01:30)
[2021-10-11 02:22] VITALS: BP 147/67
[2021-10-11 04:50] LABS: BASO % 0 % (0-3); EOS % 0 % (0-3); HEMATOCRIT 36.9 % (39.0-53.0); HEMOGLOBIN 12.7 g/dL (13.0-17.5); LYMPH # 0.8 x10^3/uL (1.0-4.8); LYMPH % 12 % (24-48); MEAN CORPUSCULAR HEMOGLOBIN 34 pg (25-35); MEAN CORPUSCULAR HGB CONC 34 g/dL (31-37); MEAN CORPUSCULAR VOLUME 98 fL (79-100); MONO # 0.5 x10^3/uL (0.0-1.1); MONO % 9 % (0-9); NEUT % 79 % (31-73); PLATELET COUNT 114 x10^3/uL (140-400); RED BLOOD COUNT 3.78 x10^6/uL (4.30-5.70); RED CELL DISTRIBUTION WIDTH 12.7 % (11.5-14.5); WHITE BLOOD COUNT 6.3 x10^3/uL (4.0-11.0)
[2021-10-11 05:05] LABS: CALCIUM 7.3 mg/dL (8.5-10.1); CREATININE 0.8 mg/dL (0.7-1.3); MAGNESIUM 1.6 mg/dL (1.8-2.4); POTASSIUM 4.6 mmol/L (3.5-5.1)
[2021-10-11] MEDS: guaiFENesin/CODEINE 100mg/10mg 5 ML LIQUID PO PRN ×3 (05:11→20:37)
[2021-10-11] MEDS: IV NORMAL SALINE 1000ML BAG 1,000 ML IV SCH ×2 (05:11→12:02)
[2021-10-11 07:00] VITALS: BP 139/73
[2021-10-11] MEDS: INSULIN LISPRO 300 UNITS/3 ML VIAL. SQ SCH ×3 (08:00→17:20)
[2021-10-11] MEDS ORDERED: MAGNESIUM SULFATE 2GM 50 ML IV ONE (08:00)
[2021-10-11] MEDS: ASPIRIN ENTERIC COATED 81 MG TABLET.DR. PO SCH (09:26)
[2021-10-11] MEDS: DEXAMETHASONE SOD PHOS 4 MG/ML VIAL IVP SCH (09:27)
[2021-10-11] MEDS: LISINOPRIL 20 MG TABLET PO SCH (09:27)
[2021-10-11] MEDS: cefTRIAXone IV Push 1 GM VIAL. IVP SCH (09:27)
[2021-10-11] MEDS: metFORMIN 500 MG TABLET PO SCH ×2 (09:27→17:17)
--- NOTE | 2021-10-11 09:49 | PDOC ---
CHAITANYA LANZA MARKETING ACCOUNT MANAGER 10/11/21 0949: CARDIO Progress Notes Date and Time Date of Service 10/11/2021 Time of Evaluation 0900 Subjective Subjective: No Chest Pain, No Palpitations, Other (SOA this morning) Vitals Vitals Vital Signs Date Time Temp Pulse Resp B/P (MAP) Pulse Ox O2 Delivery O2 Flow Rate FiO2 10/11/21 09:27 61 124/75 10/11/21 07:00 97.6 18 94 Nasal Cannula 4.0 97.6 Weight Weight [ ] Input and Output Intake and Output Intake and Output 10/11/21 07:00 Intake Total 660 ml Output Total 250 ml Balance 410 ml Intake Oral 660 ml Output Urine Total 250 ml # Voids 1 Laboratory Labs Laboratory Tests Test 10/10/21 12:11 10/10/21 16:22 10/10/21 19:44 10/11/21 04:15 Glucose (Fingerstick) 180 mg/dL (70-99) 218 mg/dL (70-99) 210 mg/dL (70-99) White Blood Count 6.3 x10^3/uL (4.0-11.0) Red Blood Count 3.78 x10^6/uL (4.30-5.70) Hemoglobin 12.7 g/dL (13.0-17.5) Hematocrit 36.9 % (39.0-53.0) Mean Corpuscular Volume 98 fL (79-100) Mean Corpuscular Hemoglobin 34 pg (25-35) Mean Corpuscular Hemoglobin Concent 34 g/dL (31-37) Red Cell Distribution Width 12.7 % (11.5-14.5) Platelet Count 114 x10^3/uL (140-400) Neutrophils (%) (Auto) 79 % (31-73) Lymphocytes (%) (Auto) 12 % (24-48) Monocytes (%) (Auto) 9 % (0-9) Eosinophils (%) (Auto) 0 % (0-3) Basophils (%) (Auto) 0 % (0-3) Neutrophils # (Auto) 5.0 x10^3/uL (1.8-7.7) Lymphocytes # (Auto) 0.8 x10^3/uL (1.0-4.8) Monocytes # (Auto) 0.5 x10^3/uL (0.0-1.1) Eosinophils # (Auto) 0.0 x10^3/uL (0.0-0.7) Basophils # (Auto) 0.0 x10^3/uL (0.0-0.2) Sodium Level 131 mmol/L (136-145) Potassium Level 4.6 mmol/L (3.5-5.1) Chloride Level 98 mmol/L (98-107) Carbon Dioxide Level 26 mmol/L (21-32) Anion Gap 7 (6-14) Blood Urea Nitrogen 18 mg/dL (8-26) Creatinine 0.8 mg/dL (0.7-1.3) Estimated GFR (Cockcroft-Gault) 97.0 Glucose Level 142 mg/dL (70-99) Calcium Level 7.3 mg/dL (8.5-10.1) Magnesium Level 1.6 mg/dL (1.8-2.4) Test 10/11/21 08:37 Glucose (Fingerstick) 114 mg/dL (70-99) Microbiology Micro Microbiology 10/09/21 Blood Culture - Preliminary, Resulted NO GROWTH AFTER 1 DAY Physical Exam HEENT: Neck Supple W Full Motion Chest: Symmetric LUNGS: Other (diminished) Heart: RRR (SR) Abdomen: Soft N/T, Other (obese) Extremities: No Calf Tenderness Neurology: alert, oriented, follow commands Assessment Assessment 1. Chest pain: unstable angina features at least x1 mo 2 Covid-19/fever: vaccinated x1 pfizer 2 weeks ago 3. HTN: controlled 4. HLP 5. DM2 6. Strong family hx of CAD 7. Morbid obesity 8. Dyspnea: now requiring high flow O2 Recommendations 1. Discussed with PCP, start with covid-19 treatment 2. Given his significant cardiac risk factors with worsening UA features and hypercoagulable predisposition with covid 19 will plan for LHC on Thursday after sufficient covid-19 treatment 3. Secondary prevention measures. ASA. Replace Mg Justicifation of Admission Dx: Justifications for Admission: Justification of Admission Dx: Yes KIYA PICKETT MD 10/11/21 1154: CARDIO Progress Notes Assessment Assessment Agree with CARD FIXER's assessment and plan. Patient with Covid pneumonia and increasing oxygen requirement We will postpone cardiac catheterization to evaluate his unstable angina to Thursday CHAITANYA LANZA MARKETING ACCOUNT MANAGER Oct 11, 2021 09:49 KIYA PICKETT MD Oct 11, 2021 11:54
[2021-10-11 11:00] VITALS: BP 124/64
--- NOTE | 2021-10-11 12:19 | NUR ---
SS following up with discharge planning. SS reviewed pt chart and discussed with pt RN. Pt is currently requiring oxygen at four liters nasal canula. COVID19 positive. Pt on IV Decadron and IV Rocephin. Cardiology following. Heart cath tentatively scheduled for 10/14/2021. Not ready. SS will continue to follow for discharge planning.
--- NOTE | 2021-10-11 13:32 | PDOC ---
[employer] PROGRESS NOTE Date of Service DOS: DATE: 10/11/21 TIME: 13:31 Chief Complaint Chief Complaint Atypical chest pain, rule out ACS Acute electrolyte derangementhyponatremia, hypochloremia suggestive of volume depletion COVID-19 infection Hyperglycemia Thrombocytopenia History of type 2 diabetes mellitus History of hypertension History of dyslipidemia COVID -19 Admit to hospitalist service for observation Continue telemetry monitoring Trend troponins Continue IV fluids Cardiology consulted planning for intervention on Thursday after few days of Covid treatment. R ISS and Accu-Cheks SCD for DVT prophylaxis Protonix GI prophylaxis Start Decadron Rocephin for Covid. Does not meet criteria for remdesivir right now. If he does can start then. ADA diet CODE STATUS full Discussed with RN and SW Disposition inpatient management as above DPOA: History of Present Illness History of Present Illness 10/11 Evaluate examined at bedside. Resting in bed. Understands this plan for procedure Thursday. Continuing COVID treatment. Plan discussed with bedside RN. 10/10 Patient evaluate examined at bedside. Was resting in bed really coughing. Informed of reason procedure pushed to Thursday with Covid positive. He understood well. Will start dexamethasone and Rocephin for Covid positivity. Rocephin cover any bacterial pneumonias. As needed cough medicine. If he starts require oxygen can start remdesivir then. Otherwise continue to follow. Up ad felicity. Vitals/I&O Vitals/I&O: Vital Signs Date Time Temp Pulse Resp B/P (MAP) Pulse Ox O2 Delivery O2 Flow Rate FiO2 10/11/21 11:00 95.8 72 18 124/64 (84) 94 Nasal Cannula 4.0 95.8 I & O 10/10/21 10/10/21 10/11/21 15:00 23:00 07:00 Intake Total 360 ml 180 ml 120 ml Output Total 100 ml 150 ml Balance 260 ml 30 ml 120 ml Physical Exam General: Alert, Oriented X3, Cooperative, No acute distress Heart: Regular rate, Normal S1, Normal S2, No murmurs Lungs: Clear Abdomen: Soft, No tenderness, Other (truncakl obesity) Extremities: No cyanosis, No edema Skin: No breakdown, No significant lesion Labs Labs: Laboratory Tests Test 10/10/21 16:22 10/10/21 19:44 10/11/21 04:15 10/11/21 08:37 Glucose (Fingerstick) 218 mg/dL (70-99) 210 mg/dL (70-99) 114 mg/dL (70-99) White Blood Count 6.3 x10^3/uL (4.0-11.0) Red Blood Count 3.78 x10^6/uL (4.30-5.70) Hemoglobin 12.7 g/dL (13.0-17.5) Hematocrit 36.9 % (39.0-53.0) Mean Corpuscular Volume 98 fL (79-100) Mean Corpuscular Hemoglobin 34 pg (25-35) Mean Corpuscular Hemoglobin Concent 34 g/dL (31-37) Red Cell Distribution Width 12.7 % (11.5-14.5) Platelet Count 114 x10^3/uL (140-400) Neutrophils (%) (Auto) 79 % (31-73) Lymphocytes (%) (Auto) 12 % (24-48) Monocytes (%) (Auto) 9 % (0-9) Eosinophils (%) (Auto) 0 % (0-3) Basophils (%) (Auto) 0 % (0-3) Neutrophils # (Auto) 5.0 x10^3/uL (1.8-7.7) Lymphocytes # (Auto) 0.8 x10^3/uL (1.0-4.8) Monocytes # (Auto) 0.5 x10^3/uL (0.0-1.1) Eosinophils # (Auto) 0.0 x10^3/uL (0.0-0.7) Basophils # (Auto) 0.0 x10^3/uL (0.0-0.2) Sodium Level 131 mmol/L (136-145) Potassium Level 4.6 mmol/L (3.5-5.1) Chloride Level 98 mmol/L (98-107) Carbon Dioxide Level 26 mmol/L (21-32) Anion Gap 7 (6-14) Blood Urea Nitrogen 18 mg/dL (8-26) Creatinine 0.8 mg/dL (0.7-1.3) Estimated GFR (Cockcroft-Gault) 97.0 Glucose Level 142 mg/dL (70-99) Calcium Level 7.3 mg/dL (8.5-10.1) Magnesium Level 1.6 mg/dL (1.8-2.4) Test 10/11/21 11:44 Glucose (Fingerstick) 230 mg/dL (70-99) Assessment and Plan Assessmemt and Plan Problems Medical Problems: (1) Chest pain Status: Acute (2) Fever Status: Acute (3) Lab test positive for detection of COVID-19 virus Status: Acute Comment Review of Relevant I have reviewed the following items bo (where applicable) has been applied. Medications: Current Medications Medications (Trade) Dose Ordered Sig/Jodi Route PRN Reason Start Time Stop Time Status Last Admin Dose Admin Atorvastatin Calcium (Lipitor) 10 mg QHS PO 10/10/21 21:00 10/10/21 19:58 Aspirin (Ecotrin) 81 mg [id number] PO 10/11/21 08:00 10/11/21 09:26 Magnesium Sulfate 50 ml @ 25 mls/hr 1X ONCE IV 10/11/21 08:00 10/11/21 09:59 DC 10/11/21 08:45 Justifications for Admission Other Justification Chest pain. NIKOLAI STANLEY MD Oct 11, 2021 13:32
[2021-10-11 15:00] VITALS: BP 135/83
[2021-10-11 19:30] VITALS: BP 139/79
[2021-10-11] MEDS: ENOXAPARIN 40 MG/0.4 ML SYRINGE. SQ SCH (20:37)
[2021-10-11] MEDS: ATORVASTATIN CALCIUM 10 MG TABLET. PO SCH (20:37)
[2021-10-11] MEDS: ACETAMINOPHEN 325 MG TABLET. PO PRN (20:39)
[2021-10-11] MEDS: LORazepam 0.5 MG TABLET PO PRN (22:45)
[2021-10-11 22:54] VITALS: BP 140/72
[2021-10-12 02:31] VITALS: BP 129/79
[2021-10-12 04:41] LABS: BASO % 0 % (0-3); EOS % 0 % (0-3); HEMOGLOBIN 12.7 g/dL (13.0-17.5); LYMPH # 0.9 x10^3/uL (1.0-4.8); LYMPH % 11 % (24-48); MEAN CORPUSCULAR HEMOGLOBIN 33 pg (25-35); MEAN CORPUSCULAR HGB CONC 34 g/dL (31-37); MEAN CORPUSCULAR VOLUME 97 fL (79-100); MONO # 0.6 x10^3/uL (0.0-1.1); MONO % 7 % (0-9); NEUT % 82 % (31-73); PLATELET COUNT 130 x10^3/uL (140-400); RED BLOOD COUNT 3.81 x10^6/uL (4.30-5.70); RED CELL DISTRIBUTION WIDTH 12.9 % (11.5-14.5); WHITE BLOOD COUNT 8.6 x10^3/uL (4.0-11.0)
[2021-10-12 04:59] LABS: CALCIUM 7.8 mg/dL (8.5-10.1); CREATININE 0.7 mg/dL (0.7-1.3); GFR 113.2; POTASSIUM 4.4 mmol/L (3.5-5.1)
[2021-10-12 07:00] VITALS: BP 134/69
[2021-10-12] MEDS: INSULIN LISPRO 300 UNITS/3 ML VIAL. SQ SCH ×3 (08:00→16:40)
[2021-10-12] MEDS: ASPIRIN ENTERIC COATED 81 MG TABLET.DR. PO SCH (08:30)
[2021-10-12] MEDS: metFORMIN 500 MG TABLET PO SCH ×2 (08:30→16:40)
[2021-10-12] MEDS: LISINOPRIL 20 MG TABLET PO SCH (08:30)
[2021-10-12] MEDS: DEXAMETHASONE SOD PHOS 4 MG/ML VIAL IVP SCH (08:31)
[2021-10-12] MEDS: cefTRIAXone IV Push 1 GM VIAL. IVP SCH (08:31)
[2021-10-12 11:00] VITALS: BP 129/64
--- NOTE | 2021-10-12 14:16 | PDOC ---
CARDIOLOGY PROGRESS NOTE SUBJECTIVE: No new issues overnight. Continues to have dyspnea. OBJECTIVE: Vital Signs/I&O: Vital Signs Date Time Temp Pulse Resp B/P (MAP) Pulse Ox O2 Delivery O2 Flow Rate FiO2 10/12/21 11:00 93.7 84 18 129/64 (85) 94 Nasal Cannula 10.0 93.7 I & O 10/11/21 10/11/21 10/12/21 15:00 23:00 07:00 Intake Total 350 ml 100 ml 200 ml Output Total 400 ml 200 ml 100 ml Balance -50 ml -100 ml 100 ml Objective: Exam deferred due to pandemic precautions CURRENT MEDICATIONS: ASA Lisinopril Atorvastatin DIAGNOSTIC TESTING: Labs reviewed. Tele reviewed. Labs: Laboratory Tests 10/12/21 04:00 Laboratory Tests Test 10/11/21 16:39 10/11/21 20:56 10/12/21 04:00 10/12/21 07:44 Glucose (Fingerstick) 210 mg/dL (70-99) H 176 mg/dL (70-99) H 139 mg/dL (70-99) H White Blood Count 8.6 x10^3/uL (4.0-11.0) Red Blood Count 3.81 x10^6/uL (4.30-5.70) L Hemoglobin 12.7 g/dL (13.0-17.5) L Hematocrit 37.0 % (39.0-53.0) L Mean Corpuscular Volume 97 fL (79-100) Mean Corpuscular Hemoglobin 33 pg (25-35) Mean Corpuscular Hemoglobin Concent 34 g/dL (31-37) Red Cell Distribution Width 12.9 % (11.5-14.5) Platelet Count 130 x10^3/uL (140-400) L Neutrophils (%) (Auto) 82 % (31-73) H Lymphocytes (%) (Auto) 11 % (24-48) L Monocytes (%) (Auto) 7 % (0-9) Eosinophils (%) (Auto) 0 % (0-3) Basophils (%) (Auto) 0 % (0-3) Neutrophils # (Auto) 7.0 x10^3/uL (1.8-7.7) Lymphocytes # (Auto) 0.9 x10^3/uL (1.0-4.8) L Monocytes # (Auto) 0.6 x10^3/uL (0.0-1.1) Eosinophils # (Auto) 0.0 x10^3/uL (0.0-0.7) Basophils # (Auto) 0.0 x10^3/uL (0.0-0.2) Sodium Level 130 mmol/L (136-145) L Potassium Level 4.4 mmol/L (3.5-5.1) Chloride Level 98 mmol/L (98-107) Carbon Dioxide Level 26 mmol/L (21-32) Anion Gap 6 (6-14) Blood Urea Nitrogen 21 mg/dL (8-26) Creatinine 0.7 mg/dL (0.7-1.3) Estimated GFR (Cockcroft-Gault) 113.2 Glucose Level 135 mg/dL (70-99) H Calcium Level 7.8 mg/dL (8.5-10.1) L Test 10/12/21 11:15 Glucose (Fingerstick) 183 mg/dL (70-99) H ASSESSMENT: 1. Covid 19 PNA 2. CP - probably non-cardiac but given risk factors, plans for cath on thursday depending on resp status. 3. Obesity 4. Dyslipidemia 5. HTN PLAN: 1. Supportive care. Will consider cath on thursday based on symptoms. Justicifation of Admission Dx: Justifications for Admission: Justification of Admission Dx: Yes CAROLINA DORANTES MD Oct 12, 2021 14:16
[2021-10-12 15:00] VITALS: BP 132/69
[2021-10-12 19:26] VITALS: BP 128/74
--- NOTE | 2021-10-12 20:42 | PDOC ---
[facility] PROGRESS NOTE Date of Service DOS: DATE: 10/12/21 TIME: 20:39 Chief Complaint Chief Complaint Atypical chest pain, rule out ACS Acute electrolyte derangementhyponatremia, hypochloremia suggestive of volume depletion COVID-19 infection Hyperglycemia Thrombocytopenia History of type 2 diabetes mellitus History of hypertension History of dyslipidemia COVID -19 Admit to hospitalist service for observation Continue telemetry monitoring Trend troponins Continue IV fluids Cardiology consulted planning for intervention on Thursday after few days of Covid treatment. R ISS and Accu-Cheks SCD for DVT prophylaxis Protonix GI prophylaxis Start Decadron Rocephin for Covid. Does not meet criteria for remdesivir right now. If he does can start then. ADA diet CODE STATUS full Discussed with RN and SW Disposition inpatient management as above DPOA: History of Present Illness History of Present Illness 10/12 Evaluated and examined at bedside. Had just gotten back from bathroom a little SOB on increased O2 setting to sat back up but back up in 90's when seen. Cath Thursday pending no worsening in terms of covid. 10/11 Evaluate examined at bedside. Resting in bed. Understands this plan for procedure Thursday. Continuing COVID treatment. Plan discussed with bedside RN. 10/10 Patient evaluate examined at bedside. Was resting in bed really coughing. Informed of reason procedure pushed to Thursday with Covid positive. He understood well. Will start dexamethasone and Rocephin for Covid positivity. Rocephin cover any bacterial pneumonias. As needed cough medicine. If he starts require oxygen can start remdesivir then. Otherwise continue to follow. Up ad felicity. Vitals/I&O Vitals/I&O: Vital Signs Date Time Temp Pulse Resp B/P (MAP) Pulse Ox O2 Delivery O2 Flow Rate FiO2 10/12/21 20:15 Nasal Cannula 10.0 10/12/21 15:00 95.1 76 20 132/69 (90) 95 95.1 I & O 10/11/21 10/11/21 10/12/21 15:00 23:00 07:00 Intake Total 350 ml 100 ml 200 ml Output Total 400 ml 200 ml 100 ml Balance -50 ml -100 ml 100 ml Physical Exam General: Alert, Oriented X3, Cooperative, No acute distress Heart: Regular rate, Normal S1, Normal S2, No murmurs Lungs: Clear Abdomen: Soft, No tenderness, Other (truncakl obesity) Extremities: No cyanosis, No edema Skin: No breakdown, No significant lesion Labs Labs: Laboratory Tests Test 10/11/21 20:56 10/12/21 04:00 10/12/21 07:44 10/12/21 11:15 Glucose (Fingerstick) 176 mg/dL (70-99) 139 mg/dL (70-99) 183 mg/dL (70-99) White Blood Count 8.6 x10^3/uL (4.0-11.0) Red Blood Count 3.81 x10^6/uL (4.30-5.70) Hemoglobin 12.7 g/dL (13.0-17.5) Hematocrit 37.0 % (39.0-53.0) Mean Corpuscular Volume 97 fL (79-100) Mean Corpuscular Hemoglobin 33 pg (25-35) Mean Corpuscular Hemoglobin Concent 34 g/dL (31-37) Red Cell Distribution Width 12.9 % (11.5-14.5) Platelet Count 130 x10^3/uL (140-400) Neutrophils (%) (Auto) 82 % (31-73) Lymphocytes (%) (Auto) 11 % (24-48) Monocytes (%) (Auto) 7 % (0-9) Eosinophils (%) (Auto) 0 % (0-3) Basophils (%) (Auto) 0 % (0-3) Neutrophils # (Auto) 7.0 x10^3/uL (1.8-7.7) Lymphocytes # (Auto) 0.9 x10^3/uL (1.0-4.8) Monocytes # (Auto) 0.6 x10^3/uL (0.0-1.1) Eosinophils # (Auto) 0.0 x10^3/uL (0.0-0.7) Basophils # (Auto) 0.0 x10^3/uL (0.0-0.2) Sodium Level 130 mmol/L (136-145) Potassium Level 4.4 mmol/L (3.5-5.1) Chloride Level 98 mmol/L (98-107) Carbon Dioxide Level 26 mmol/L (21-32) Anion Gap 6 (6-14) Blood Urea Nitrogen 21 mg/dL (8-26) Creatinine 0.7 mg/dL (0.7-1.3) Estimated GFR (Cockcroft-Gault) 113.2 Glucose Level 135 mg/dL (70-99) Calcium Level 7.8 mg/dL (8.5-10.1) Magnesium Level 2.0 mg/dL (1.8-2.4) Test 10/12/21 16:30 Glucose (Fingerstick) 218 mg/dL (70-99) Assessment and Plan Assessmemt and Plan Problems Medical Problems: (1) Chest pain Status: Acute (2) Fever Status: Acute (3) Lab test positive for detection of COVID-19 virus Status: Acute Comment Review of Relevant I have reviewed the following items bo (where applicable) has been applied. Justifications for Admission Other Justification Chest pain. NIKOLAI STANLEY MD Oct 12, 2021 20:42
[2021-10-12] MEDS: ENOXAPARIN 40 MG/0.4 ML SYRINGE. SQ SCH (20:43)
[2021-10-12] MEDS: LACTOBACILLUS RHAMNOSUS GG 1 CAPSULE. PO SCH (20:43)
[2021-10-12] MEDS: ATORVASTATIN CALCIUM 10 MG TABLET. PO SCH (20:43)
[2021-10-12] MEDS: guaiFENesin/CODEINE 100mg/10mg 5 ML LIQUID PO PRN (20:47)
[2021-10-12] MEDS: LORazepam 0.5 MG TABLET PO PRN (23:21)
[2021-10-12 23:27] VITALS: BP 112/74
[2021-10-13 02:17] VITALS: BP 124/75
[2021-10-13] MEDS: guaiFENesin/CODEINE 100mg/10mg 5 ML LIQUID PO PRN ×2 (02:50→14:57)
[2021-10-13 07:00] VITALS: BP 127/72
[2021-10-13] MEDS: INSULIN LISPRO 300 UNITS/3 ML VIAL. SQ SCH ×3 (08:00→17:24)
[2021-10-13] MEDS: LACTOBACILLUS RHAMNOSUS GG 1 CAPSULE. PO SCH ×2 (08:46→21:54)
[2021-10-13] MEDS: DEXAMETHASONE SOD PHOS 4 MG/ML VIAL IVP SCH (08:46)
[2021-10-13] MEDS: LISINOPRIL 20 MG TABLET PO SCH (08:46)
[2021-10-13] MEDS: ASPIRIN ENTERIC COATED 81 MG TABLET.DR. PO SCH (08:46)
[2021-10-13] MEDS: metFORMIN 500 MG TABLET PO SCH ×2 (08:46→17:04)
[2021-10-13] MEDS: cefTRIAXone IV Push 1 GM VIAL. IVP SCH (10:08)
[2021-10-13 11:00] VITALS: BP 127/72
--- NOTE | 2021-10-13 13:00 | PDOC ---
CARDIOLOGY PROGRESS NOTE SUBJECTIVE: Patient reports that he does not feel any better. He remains on high flow oxygen. He is concerned about his coronary status. OBJECTIVE: Vital Signs/I&O: Vital Signs Date Time Temp Pulse Resp B/P (MAP) Pulse Ox O2 Delivery O2 Flow Rate FiO2 10/13/21 11:00 97.7 97 21 127/72 (90) 89 Nasal Cannula 10.0 97.7 I & O 10/12/21 10/12/21 10/13/21 15:00 23:00 07:00 Intake Total 400 ml 0 ml Output Total 275 ml 400 ml Balance 125 ml -400 ml CURRENT MEDICATIONS: Current Medications Medications (Trade) Dose Ordered Sig/Jodi Route PRN Reason Start Time Stop Time Status Last Admin Dose Admin Lactobacillus Rhamnosus (Culturelle) 1 cap BID PO 10/12/21 21:00 10/13/21 08:46 DIAGNOSTIC TESTING: Labs: Laboratory Tests Test 10/12/21 16:30 10/12/21 20:41 10/13/21 07:41 10/13/21 11:39 Glucose (Fingerstick) 218 mg/dL (70-99) H 149 mg/dL (70-99) H 129 mg/dL (70-99) H 198 mg/dL (70-99) H ASSESSMENT: Physical Exam HEENT: Neck Supple W Full Motion Chest: Symmetric LUNGS: Other (diminished) Heart: RRR (SR) Abdomen: Soft N/T, Other (obese) Extremities: No Calf Tenderness Neurology: alert, oriented, follow commands Assessment 1. Chest pain: unstable angina features at least x1 mo 2 Covid-19/fever: vaccinated x1 pfizer 2 weeks ago 3. HTN: controlled 4. HLP 5. DM2 6. Strong family hx of CAD 7. Morbid obesity 8. Dyspnea: now requiring high flow O2 Recommendations 1. Plan for cardiac catheterization tomorrow if stable from a respiratory standpoint. Supportive care. Continue current medical therapy Justicifation of Admission Dx: Justifications for Admission: Justification of Admission Dx: Yes CAROLINA DORANTES MD Oct 13, 2021 13:00
--- NOTE | 2021-10-13 13:06 | PDOC ---
[facility] PROGRESS NOTE Date of Service DOS: DATE: 10/13/21 TIME: 13:04 Chief Complaint Chief Complaint Atypical chest pain, rule out ACS Acute electrolyte derangementhyponatremia, hypochloremia suggestive of volume depletion COVID-19 infection Hyperglycemia Thrombocytopenia History of type 2 diabetes mellitus History of hypertension History of dyslipidemia COVID -19 Admit to hospitalist service for observation Continue telemetry monitoring Trend troponins Continue IV fluids Cardiology consulted planning for intervention on Thursday after few days of Covid treatment. R ISS and Accu-Cheks SCD for DVT prophylaxis Protonix GI prophylaxis Start Decadron Rocephin for Covid. Does not meet criteria for remdesivir right now. If he does can start then. ADA diet CODE STATUS full Discussed with RN and SW Disposition inpatient management as above DPOA: History of Present Illness History of Present Illness 10/13 Evaluated examined at bedside. Shortness of breath is a little bit worse and oxygenation has increased a little bit. Add on remdesivir today add doxycycline. Still planning for cath tomorrow. Patient's now here for COVID-19. 10/12 Evaluated and examined at bedside. Had just gotten back from bathroom a little SOB on increased O2 setting to sat back up but back up in 90's when seen. Cath Thursday pending no worsening in terms of covid. 10/11 Evaluate examined at bedside. Resting in bed. Understands this plan for procedure Thursday. Continuing COVID treatment. Plan discussed with bedside RN. 10/10 Patient evaluate examined at bedside. Was resting in bed really coughing. Informed of reason procedure pushed to Thursday with Covid positive. He understood well. Will start dexamethasone and Rocephin for Covid positivity. Rocephin cover any bacterial pneumonias. As needed cough medicine. If he starts require oxygen can start remdesivir then. Otherwise continue to follow. Up ad felicity. Vitals/I&O Vitals/I&O: Vital Signs Date Time Temp Pulse Resp B/P (MAP) Pulse Ox O2 Delivery O2 Flow Rate FiO2 10/13/21 11:00 97.7 97 21 127/72 (90) 89 Nasal Cannula 10.0 97.7 I & O 10/12/21 10/12/21 10/13/21 15:00 23:00 07:00 Intake Total 400 ml 0 ml Output Total 275 ml 400 ml Balance 125 ml -400 ml Physical Exam General: Alert, Oriented X3, Cooperative, No acute distress Heart: Regular rate, Normal S1, Normal S2, No murmurs Lungs: Clear Abdomen: Soft, No tenderness, Other (truncakl obesity) Extremities: No cyanosis, No edema Skin: No breakdown, No significant lesion Labs Labs: Laboratory Tests Test 10/12/21 16:30 10/12/21 20:41 10/13/21 07:41 10/13/21 11:39 Glucose (Fingerstick) 218 mg/dL (70-99) 149 mg/dL (70-99) 129 mg/dL (70-99) 198 mg/dL (70-99) Assessment and Plan Assessmemt and Plan Problems Medical Problems: (1) Chest pain Status: Acute (2) Fever Status: Acute (3) Lab test positive for detection of COVID-19 virus Status: Acute Comment Review of Relevant I have reviewed the following items bo (where applicable) has been applied. Medications: Current Medications Medications (Trade) Dose Ordered Sig/Jodi Route PRN Reason Start Time Stop Time Status Last Admin Dose Admin Lactobacillus Rhamnosus (Culturelle) 1 cap BID PO 10/12/21 21:00 10/13/21 08:46 Justifications for Admission Other Justification Chest pain. NIKOLAI STANLEY MD Oct 13, 2021 13:06
[2021-10-13] MEDS: DOXYCYCLINE HYCLATE 100 MG TABLET PO SCH ×2 (13:20→21:55)
[2021-10-13 15:00] VITALS: BP 141/82
[2021-10-13] MEDS ORDERED: REMDESIVIR LOAD in IV NORMAL SALINE 250ML TV IV ONE (15:00)
[2021-10-13 19:26] VITALS: BP 133/79
[2021-10-13] MEDS: ATORVASTATIN CALCIUM 10 MG TABLET. PO SCH (21:54)
[2021-10-13] MEDS: ENOXAPARIN 40 MG/0.4 ML SYRINGE. SQ SCH (21:55)
[2021-10-13] MEDS: diphenhydrAMINE HCL 25 MG CAPSULE PO PRN (21:55)
[2021-10-13 22:51] VITALS: BP 118/70
[2021-10-14] MEDS: LORazepam 0.5 MG TABLET PO PRN (01:38)
[2021-10-14] MEDS: guaiFENesin/CODEINE 100mg/10mg 5 ML LIQUID PO PRN ×2 (01:39→21:38)
[2021-10-14] MEDS: MORPHINE SULFATE 2 MG/ML INJ. IV PRN (01:39)
[2021-10-14 02:52] VITALS: BP 126/62
--- NOTE | 2021-10-14 03:04 | NUR ---
pt was on 10 liters nasal cannula up till now, increased to 15 liters nc. called robert goodrich and placed pt on non rebreathier 15 liters. 94% 118/70. pt seeme to have possibly sleep apnea, which is in his history as well. on cannula sats were 79% placed on non rebriether and sats now are 88-92%. rr are 36. will continue to monitor. lcrn
--- NOTE | 2021-10-14 05:00 | NUR ---
rt placed pt on a vapo therm. sats are 87-88%. lcrn
[2021-10-14 07:42] VITALS: BP 153/93
[2021-10-14] MEDS: INSULIN LISPRO 300 UNITS/3 ML VIAL. SQ SCH ×3 (08:00→16:36)
[2021-10-14] MEDS: LACTOBACILLUS RHAMNOSUS GG 1 CAPSULE. PO SCH ×2 (08:54→21:38)
[2021-10-14] MEDS: ASPIRIN ENTERIC COATED 81 MG TABLET.DR. PO SCH (08:54)
[2021-10-14] MEDS: LISINOPRIL 20 MG TABLET PO SCH (08:54)
[2021-10-14] MEDS: metFORMIN 500 MG TABLET PO SCH ×2 (08:54→16:35)
[2021-10-14] MEDS: DOXYCYCLINE HYCLATE 100 MG TABLET PO SCH ×2 (08:54→21:38)
[2021-10-14] MEDS: DEXAMETHASONE SOD PHOS 4 MG/ML VIAL IVP SCH (08:55)
[2021-10-14] MEDS: cefTRIAXone IV Push 1 GM VIAL. IVP SCH (10:00)
[2021-10-14 10:43] VITALS: BP 124/67
--- NOTE | 2021-10-14 10:51 | PDOC ---
VANDANA LEWIS APRN 10/14/21 1051: CARDIO Progress Notes Date and Time Date of Service 10/14/21 Time of Evaluation 1050 Subjective Subjective: No Chest Pain, No Palpitations, Other (more SOA today. increased oxygen requirements ) Vitals Vitals Vital Signs Date Time Temp Pulse Resp B/P (MAP) Pulse Ox O2 Delivery O2 Flow Rate FiO2 10/14/21 10:43 100.0 86 24 124/67 (86) 94 vap 15.0 100.0 Weight Weight [ ] Input and Output Intake and Output Intake and Output 10/14/21 07:00 Intake Total 1500 ml Output Total 1600 ml Balance -100 ml Intake Oral 1250 ml IV Total 250 ml Output Urine Total 1600 ml Laboratory Labs Laboratory Tests Test 10/13/21 11:39 10/13/21 17:17 10/13/21 20:50 10/14/21 07:45 Glucose (Fingerstick) 198 mg/dL (70-99) 252 mg/dL (70-99) 179 mg/dL (70-99) 146 mg/dL (70-99) Test 10/14/21 08:09 Glucose (Fingerstick) 206 mg/dL (70-99) Microbiology Micro Microbiology 10/09/21 Blood Culture - Preliminary, Resulted NO GROWTH AFTER 4 DAYS Physical Exam HEENT: Neck Supple W Full Motion Chest: Symmetric LUNGS: Other (diminished, on vapotherm, NC) Heart: RRR (SR) Abdomen: Soft N/T, Other (obese) Extremities: No Calf Tenderness Neurology: alert, oriented, follow commands Assessment Assessment 1. Chest pain; AMI ruled out 2 Acute respiratory failure secondary to COVID PNA 3. HTN: controlled 4. HLP 5. DM2 6. Strong family hx of CAD 7. Morbid obesity Recommendations Will hold off on [facility] for now given respiratory compromise, increasing oxygen req uirements Continue ASA, statin Ongoing pulmonary optimization, treatment of COVID PNA Supportive care Justicifation of Admission Dx: Justifications for Admission: Justification of Admission Dx: Yes KIYA PICKETT MD 10/15/21 0543: CARDIO Progress Notes Assessment Assessment Patient seen and examined. Agree with POULTRY SCALDER's assessment and plan. Acute resp failure secondary to covid pneumonia - treat per pulm We will defer cardiac cath for unstable angina due to increasing oxygen requirements VANDANA LEWIS APRN Oct 14, 2021 10:51 KIYA PICKETT MD Oct 15, 2021 05:43
--- NOTE | 2021-10-14 11:28 | NUR ---
SS following up with discharge planning. SS reviewed pt chart and discussed with pt RN. Pt is currently on Vapotherm and Non-Rebreather at 100%. COVID19 positive. Pt on IV Remdesivir, IV Rocephin, IV Decadron, and PO Doxycycline. Not stable. Heart cath on hold at this time. SS will continue to follow for discharge planning.
[2021-10-14] MEDS: STERILE WATER for RESP 1,000 ML BAG. INH PRN ×2 (11:45→21:44)
--- NOTE | 2021-10-14 11:51 | PDOC ---
[employer] [facility] PROGRESS NOTE Date of Service DOS: DATE: 10/14/21 TIME: 11:50 Chief Complaint Chief Complaint Atypical chest pain, rule out ACS Acute electrolyte derangementhyponatremia, hypochloremia suggestive of volume depletion COVID-19 infection Hyperglycemia Thrombocytopenia History of type 2 diabetes mellitus History of hypertension History of dyslipidemia COVID -19 Admit to hospitalist service for observation Continue telemetry monitoring Trend troponins Continue IV fluids Cardiology consulted planning for intervention on Thursday after few days of Covid treatment. R ISS and Accu-Cheks SCD for DVT prophylaxis Protonix GI prophylaxis Start Decadron Rocephin for Covid. Does not meet criteria for remdesivir right now. If he does can start then. ADA diet CODE STATUS full Discussed with RN and SW Disposition inpatient management as above DPOA: History of Present Illness History of Present Illness 10/14: Seen bedside. On 40 L/min 100% FiO2 with supplemental facemask. Has a little bit of an appetite. Significant desaturations with movement. No chest pain. Still short of breath with cough. 10/13: Evaluated examined at bedside. Shortness of breath is a little bit worse and oxygenation has increased a little bit. Add on remdesivir today add doxycycline. Still planning for cath tomorrow. Patient's now here for COVID-19. 10/12: Evaluated and examined at bedside. Had just gotten back from bathroom a little SOB on increased O2 setting to sat back up but back up in 90's when seen. Cath Thursday pending no worsening in terms of covid. 10/11: Evaluate examined at bedside. Resting in bed. Understands this plan for procedure Thursday. Continuing COVID treatment. Plan discussed with bedside RN. 10/10: Patient evaluate examined at bedside. Was resting in bed really coughing. Informed of reason procedure pushed to Thursday with Covid positive. He understood well. Will start dexamethasone and Rocephin for Covid positivity. Rocephin cover any bacterial pneumonias. As needed cough medicine. If he starts require oxygen can start remdesivir then. Otherwise continue to follow. Up ad felicity. Vitals/I&O Vitals/I&O: Vital Signs Date Time Temp Pulse Resp B/P (MAP) Pulse Ox O2 Delivery O2 Flow Rate FiO2 10/14/21 11:32 Nasal Cannula 15.0 10/14/21 10:43 100.0 86 24 124/67 86 94 100.0 I & O 10/13/21 10/13/21 10/14/21 15:00 23:00 07:00 Intake Total 550 ml 650 ml 300 ml Output Total 550 ml 750 ml 300 ml Balance 0 ml -100 ml 0 ml Physical Exam General: Alert, Oriented X3, Cooperative, No acute distress Heart: Regular rate, Normal S1, Normal S2, No murmurs Lungs: Clear Abdomen: Soft, No tenderness, Other (truncakl obesity) Extremities: No cyanosis, No edema Skin: No breakdown, No significant lesion Labs Labs: Laboratory Tests Test 10/13/21 17:17 10/13/21 20:50 10/14/21 07:45 10/14/21 08:09 Glucose (Fingerstick) 252 mg/dL (70-99) 179 mg/dL (70-99) 146 mg/dL (70-99) 206 mg/dL (70-99) Assessment and Plan Assessmemt and Plan Problems Medical Problems: (1) Chest pain Status: Acute (2) Fever Status: Acute (3) Lab test positive for detection of COVID-19 virus Status: Acute Comment Review of Relevant I have reviewed the following items bo (where applicable) has been applied. Medications: Current Medications Medications (Trade) Dose Ordered Sig/Jodi Route PRN Reason Start Time Stop Time Status Last Admin Dose Admin Doxycycline Hyclate (Vibra-Tab) 100 mg BID PO 10/13/21 13:30 10/14/21 08:54 Remdesivir 200 mg/ Sodium Chloride 210 ml @ 210 mls/hr 1X ONCE IV 10/13/21 15:00 10/13/21 15:59 DC 10/13/21 15:12 Sterile Water (WATER for RESP) 1,000 ml CONT PRN INH VIA VAPOTHERM DEVICE 10/14/21 04:15 10/14/21 11:45 Justifications for Admission Other Justification Chest pain. NIKOLAI IQBAL MD Oct 14, 2021 11:51
[2021-10-14] MEDS: REMDESIVIR 100mg in NORMAL SALINE 250ML X 4 DAYS IV SCH (13:15)
[2021-10-14 15:00] VITALS: BP 128/75
--- NOTE | 2021-10-14 15:24 | PDOC ---
PULMONARY PROGRESS NOTES DATE: 10/14/21 TIME: 15:23 Vitals Vital Signs Date Time Temp Pulse Resp B/P (MAP) Pulse Ox O2 Delivery O2 Flow Rate FiO2 10/14/21 15:00 98.7 87 22 128/75 (92) 95 vap 98.7 10/14/21 12:13 40.0 Lungs: Clear Labs Laboratory Tests Test 10/12/21 16:30 10/12/21 20:41 10/13/21 07:41 10/13/21 11:39 Glucose (Fingerstick) 218 mg/dL (70-99) 149 mg/dL (70-99) 129 mg/dL (70-99) 198 mg/dL (70-99) Test 10/13/21 17:17 10/13/21 20:50 10/14/21 07:45 10/14/21 08:09 Glucose (Fingerstick) 252 mg/dL (70-99) 179 mg/dL (70-99) 146 mg/dL (70-99) 206 mg/dL (70-99) Test 10/14/21 11:44 Glucose (Fingerstick) 200 mg/dL (70-99) Laboratory Tests Test 10/13/21 17:17 10/13/21 20:50 10/14/21 07:45 10/14/21 08:09 Glucose (Fingerstick) 252 mg/dL (70-99) 179 mg/dL (70-99) 146 mg/dL (70-99) 206 mg/dL (70-99) Test 10/14/21 11:44 Glucose (Fingerstick) 200 mg/dL (70-99) Medications Active Scripts Medications Dose Route/Sig Max Daily Dose Days Date Category Lipitor (Atorvastatin Calcium) 10 Mg Tablet 1 Tab PO QHS 10/10/21 Reported Lisinopril 20 Mg Tablet 1 Tab PO DAILY 08/11/14 Reported Metformin Hcl 500 Mg Tablet 1 Tab PO BID 08/11/14 Reported Impression . Full note dictated Acute hypoxemic respiratory failure secondary to COVID-19 Possible coronary artery disease Continue current support Patient not stable enough to undergo elective cardiac catheterization DELFIN FRANCO MD Oct 14, 2021 15:24
[2021-10-14 19:50] VITALS: BP 117/70
--- NOTE | 2021-10-14 20:27 | CONS ---
DATE OF CONSULTATION: 10/14/2021 ATTENDING PHYSICIAN: Dr. Dunham. REASON FOR CONSULTATION: The patient is seen in pulmonary consultation at the request of Dr. Weems for increasing shortness of air, increasing oxygen requirement, COVID-19 positivity, infection. HISTORY OF PRESENT ILLNESS: The patient is a 66-year-old that presented with a history of type 2 diabetes, hypertension, hyperlipidemia with complaints of intermittent left-sided chest discomfort ongoing for approximately 2 months. Apparently, he was scheduled to undergo a cardiac catheterization with possible stent placement. He presented with increasing shortness of breath. He was evaluated and found to have COVID-19 positivity. The patient apparently has had 1 unit of the vaccine. Since his admission, he slowly requiring more oxygen supplementation. He is currently on nonrebreather and Vapotherm 40 liters, 100% FiO2. He has a cough, mostly nonproductive. The patient does not smoke. He does not wear oxygen at home. He did lose his taste. Denies any fever. Since admission, he has had a T-max of 100. His x-ray was personally reviewed. There was bilateral pulmonary infiltrates. His white count was normal. PAST MEDICAL HISTORY: Remarkable for type 2 diabetes, hypertension, hyperlipidemia, possible coronary artery disease. PAST SURGICAL HISTORY: Status post knee replacement. ALLERGIES: CODEINE. CURRENT MEDICATIONS: List was reviewed. He is currently receiving remdesivir, aspirin, atorvastatin, ceftriaxone, dexamethasone, diphenhydramine, doxycycline, enoxaparin, guanfacine, insulin, lisinopril p.r.n., Ativan p.r.n., and morphine. FAMILY HISTORY: Noncontributory. REVIEW OF SYSTEMS: As indicated above, otherwise other systems were reviewed and negative. PHYSICAL EXAMINATION: VITAL SIGNS: Stable. O2 saturation currently on 40 liters flow, 100% FiO2 with Vapotherm greater than 92%. HEENT: Eyes: The sclerae were nonicteric. NECK: Jugular venous distention was not elevated. No lymphadenopathy. CHEST: Full expansion. LUNGS: Crackles throughout both lung greer. CARDIOVASCULAR: Regular rate and rhythm with S1, S2, no S3. ABDOMEN: Soft. EXTREMITIES: No clubbing, cyanosis or edema. NEUROLOGIC: The patient was awake, alert, following commands. A detailed neuro exam was not performed. LABORATORY DATA: Chest x-ray reviewed as indicated above. IMPRESSION: 1. Acute hypoxemic respiratory failure. 2. COVID-19 viral pneumonia/acute respiratory distress syndrome. 3. Possible bacterial pneumonia. 4. Chest pain, unstable angina, possible coronary artery disease. 5. Hypertension. 6. Hyperlipidemia. 7. Type 2 diabetes. PLAN: 1. Obviously, we will recommend holding off on cardiac catheterization. 2. Continue oxygen supplementation per Vapotherm and face mask along with 100% nonrebreather, if deteriorates, may require transfer to the intensive care unit. 3. Continue remdesivir and dexamethasone. 4. Empiric antibiotics. 5. DVT prophylaxis. I do appreciate the privilege in sharing in the patient's care. SABAS DR: Avila TID: [id number]
[2021-10-14] MEDS: ATORVASTATIN CALCIUM 10 MG TABLET. PO SCH (21:38)
[2021-10-14] MEDS: ACETAMINOPHEN 325 MG TABLET. PO PRN (21:38)
[2021-10-14] MEDS: ENOXAPARIN 40 MG/0.4 ML SYRINGE. SQ SCH (21:39)
[2021-10-14 23:00] VITALS: BP 122/77
[2021-10-15] MEDS: LORazepam 0.5 MG TABLET PO PRN ×2 (01:34→22:27)
[2021-10-15 02:40] VITALS: BP 121/64
[2021-10-15 06:26] LABS: ALBUMIN 2.1 g/dL (3.4-5.0); ALBUMIN/GLOBULIN RATIO 0.4 (1.0-1.7); CALCIUM 8.3 mg/dL (8.5-10.1); CREATININE 0.8 mg/dL (0.7-1.3); TOTAL BILIRUBIN 0.8 mg/dL (0.2-1.0); TOTAL PROTEIN 7.1 g/dL (6.4-8.2)
[2021-10-15 07:46] VITALS: BP 119/70
[2021-10-15] MEDS: LACTOBACILLUS RHAMNOSUS GG 1 CAPSULE. PO SCH ×2 (09:01→20:21)
[2021-10-15] MEDS: guaiFENesin/CODEINE 100mg/10mg 5 ML LIQUID PO PRN ×2 (09:01→17:37)
[2021-10-15] MEDS: DOXYCYCLINE HYCLATE 100 MG TABLET PO SCH ×2 (09:01→20:21)
[2021-10-15] MEDS: metFORMIN 500 MG TABLET PO SCH ×2 (09:01→17:37)
[2021-10-15] MEDS: ASPIRIN ENTERIC COATED 81 MG TABLET.DR. PO SCH (09:01)
[2021-10-15] MEDS: cefTRIAXone IV Push 1 GM VIAL. IVP SCH (09:02)
[2021-10-15] MEDS: LISINOPRIL 20 MG TABLET PO SCH (09:02)
[2021-10-15] MEDS: DEXAMETHASONE SOD PHOS 4 MG/ML VIAL IVP SCH (09:02)
[2021-10-15] MEDS: INSULIN LISPRO 300 UNITS/3 ML VIAL. SQ SCH ×3 (09:03→17:38)
--- NOTE | 2021-10-15 09:10 | PDOC ---
PULMONARY PROGRESS NOTES DATE: 10/15/21 TIME: 09:04 Subjective Patient sitting up in bed this morning Currently on VT 40L 100% FiO2 and 15L NRB Productive cough No acute distress but increasing O2 needs O2 saturation falls to low 80's with talking Vitals Vital Signs Date Time Temp Pulse Resp B/P (MAP) Pulse Ox O2 Delivery O2 Flow Rate FiO2 10/15/21 09:02 84 119/70 10/15/21 08:23 83 VapoTherm 40.0 10/15/21 07:46 97.7 26 97.7 ROS: No Nausea General: Alert, Oriented X4 Lungs: Clear Abdomen: Soft, Non-tender Neuro Exam: Alert Extremities: No Edema Skin: Warm, No Rashes Labs Laboratory Tests Test 10/13/21 11:39 10/13/21 17:17 10/13/21 20:50 10/14/21 07:45 Glucose (Fingerstick) 198 mg/dL (70-99) 252 mg/dL (70-99) 179 mg/dL (70-99) 146 mg/dL (70-99) Test 10/14/21 08:09 10/14/21 11:44 10/14/21 16:32 10/14/21 21:14 Glucose (Fingerstick) 206 mg/dL (70-99) 200 mg/dL (70-99) 231 mg/dL (70-99) 236 mg/dL (70-99) Test 10/15/21 04:50 10/15/21 07:51 Sodium Level 133 mmol/L (136-145) Potassium Level 4.0 mmol/L (3.5-5.1) Chloride Level 99 mmol/L (98-107) Carbon Dioxide Level 25 mmol/L (21-32) Anion Gap 9 (6-14) Blood Urea Nitrogen 26 mg/dL (8-26) Creatinine 0.8 mg/dL (0.7-1.3) Estimated GFR (Cockcroft-Gault) 97.0 BUN/Creatinine Ratio 33 (6-20) Glucose Level 133 mg/dL (70-99) Calcium Level 8.3 mg/dL (8.5-10.1) Total Bilirubin 0.8 mg/dL (0.2-1.0) Aspartate Amino Transf (AST/SGOT) 31 U/L (15-37) Alanine Aminotransferase (ALT/SGPT) 34 U/L (16-63) Alkaline Phosphatase 70 U/L (46-116) Total Protein 7.1 g/dL (6.4-8.2) Albumin 2.1 g/dL (3.4-5.0) Albumin/Globulin Ratio 0.4 (1.0-1.7) Glucose (Fingerstick) 159 mg/dL (70-99) Laboratory Tests Test 10/14/21 11:44 10/14/21 16:32 10/14/21 21:14 10/15/21 04:50 Glucose (Fingerstick) 200 mg/dL (70-99) 231 mg/dL (70-99) 236 mg/dL (70-99) Sodium Level 133 mmol/L (136-145) Potassium Level 4.0 mmol/L (3.5-5.1) Chloride Level 99 mmol/L (98-107) Carbon Dioxide Level 25 mmol/L (21-32) Anion Gap 9 (6-14) Blood Urea Nitrogen 26 mg/dL (8-26) Creatinine 0.8 mg/dL (0.7-1.3) Estimated GFR (Cockcroft-Gault) 97.0 BUN/Creatinine Ratio 33 (6-20) Glucose Level 133 mg/dL (70-99) Calcium Level 8.3 mg/dL (8.5-10.1) Total Bilirubin 0.8 mg/dL (0.2-1.0) Aspartate Amino Transf (AST/SGOT) 31 U/L (15-37) Alanine Aminotransferase (ALT/SGPT) 34 U/L (16-63) Alkaline Phosphatase 70 U/L (46-116) Total Protein 7.1 g/dL (6.4-8.2) Albumin 2.1 g/dL (3.4-5.0) Albumin/Globulin Ratio 0.4 (1.0-1.7) Test 10/15/21 07:51 Glucose (Fingerstick) 159 mg/dL (70-99) Medications Active Scripts Medications Dose Route/Sig Max Daily Dose Days Date Category Lipitor (Atorvastatin Calcium) 10 Mg Tablet 1 Tab PO QHS 10/10/21 Reported Lisinopril 20 Mg Tablet 1 Tab PO DAILY 08/11/14 Reported Metformin Hcl 500 Mg Tablet 1 Tab PO BID 11/28/14 Reported Impression . IMPRESSION: 1. Acute hypoxemic respiratory failure. 2. COVID-19 viral pneumonia/acute respiratory distress syndrome. 3. Possible bacterial pneumonia. 4. Chest pain, unstable angina, possible coronary artery disease. 5. Hypertension. 6. Hyperlipidemia. 7. Type 2 diabetes. Plan . Continue current support Possibly need for higher level of care Discussed with RN Obtain blood gas Labs reviewed 10/14 PLAN: 1. Obviously, we will recommend holding off on cardiac catheterization. 2. Continue oxygen supplementation per Vapotherm and face mask along with 100% nonrebreather, if deteriorates, may require transfer to the intensive care unit. 3. Continue remdesivir and dexamethasone. 4. Empiric antibiotics. 5. DVT prophylaxis. I do appreciate the privilege in sharing in the patient's care. DELFIN FRANCO MD Oct 15, 2021 09:10
--- NOTE | 2021-10-15 10:00 | PDOC ---
VANDANA LEWIS [employer]EL[employer] 10/15/21 1000: CARDIO Progress Notes Date and Time Date of Service 10/15/21 Time of Evaluation 1000 Subjective Subjective: No Palpitations, Other (s/o pain behind ears from oxygen tubing, brief episode of CP this am- resolved without intervention ) Vitals Vitals Vital Signs Date Time Temp Pulse Resp B/P (MAP) Pulse Ox O2 Delivery O2 Flow Rate FiO2 10/15/21 09:02 84 119/70 10/15/21 08:23 83 VapoTherm 40.0 10/15/21 07:46 97.7 26 97.7 Weight Weight [ ] Input and Output Intake and Output Intake and Output 10/15/21 07:00 Intake Total 480 ml Output Total 600 ml Balance -120 ml Intake Oral 480 ml Output Urine Total 600 ml Laboratory Labs Laboratory Tests Test 10/14/21 11:44 10/14/21 16:32 10/14/21 21:14 10/15/21 04:50 Glucose (Fingerstick) 200 mg/dL (70-99) 231 mg/dL (70-99) 236 mg/dL (70-99) Sodium Level 133 mmol/L (136-145) Potassium Level 4.0 mmol/L (3.5-5.1) Chloride Level 99 mmol/L (98-107) Carbon Dioxide Level 25 mmol/L (21-32) Anion Gap 9 (6-14) Blood Urea Nitrogen 26 mg/dL (8-26) Creatinine 0.8 mg/dL (0.7-1.3) Estimated GFR (Cockcroft-Gault) 97.0 BUN/Creatinine Ratio 33 (6-20) Glucose Level 133 mg/dL (70-99) Calcium Level 8.3 mg/dL (8.5-10.1) Total Bilirubin 0.8 mg/dL (0.2-1.0) Aspartate Amino Transf (AST/SGOT) 31 U/L (15-37) Alanine Aminotransferase (ALT/SGPT) 34 U/L (16-63) Alkaline Phosphatase 70 U/L (46-116) Total Protein 7.1 g/dL (6.4-8.2) Albumin 2.1 g/dL (3.4-5.0) Albumin/Globulin Ratio 0.4 (1.0-1.7) Test 10/15/21 07:51 Glucose (Fingerstick) 159 mg/dL (70-99) Microbiology Micro Microbiology 10/09/21 Blood Culture - Final, Complete NO GROWTH AFTER 5 DAYS Physical Exam HEENT: Neck Supple W Full Motion Chest: Symmetric LUNGS: Other (diminished, on vapotherm, NRB) Heart: RRR (SR) Abdomen: Soft N/T, Other (obese) Extremities: No Calf Tenderness Neurology: alert, oriented, follow commands Assessment Assessment 1. Chest pain; AMI ruled out 2 Acute respiratory failure secondary to COVID PNA 3. HTN: controlled 4. HLP 5. DM2 6. Strong family hx of CAD 7. Morbid obesity Recommendations Will defer LHC for given respiratory compromise, increasing oxygen requirements Continue ASA, statin Ongoing pulmonary optimization, treatment of COVID PNA Supportive care Justicifation of Admission Dx: Justifications for Admission: Justification of Admission Dx: Yes KIYA PICKETT MD 10/15/21 1559: CARDIO Progress Notes Assessment Assessment Patient seen and examined. Agree with FUR TRIMMER's assessment and plan. Acute resp failure secondary to covid pneumonia - treat per pulm Plan cardiac catheterization once Covid recovered VANDANA LEWIS APRN Oct 15, 2021 10:00 KIYA PICKETT MD Oct 15, 2021 15:59
[2021-10-15 10:02] VITALS: BP 116/68
[2021-10-15] MEDS: STERILE WATER for RESP 1,000 ML BAG. INH PRN ×2 (11:02→22:29)
[2021-10-15 11:09] LABS: BASE EXCESS ABG 2 mmol/L (-3-3); HCO3 ABG 24 mmol/L (21-28); PCO2 ABG 28 mmHg (35-46); PO2 ABG 63 mmHg (65-108); SAT O2 ABG 93 % (92-99)
[2021-10-15 11:11] LABS: FIO2 ABG 100%Vapo+NRB
--- NOTE | 2021-10-15 11:14 | PDOC ---
[facility] PROGRESS NOTE Date of Service DOS: DATE: 10/15/21 TIME: 11:13 Chief Complaint Chief Complaint Atypical chest pain, rule out ACS Acute electrolyte derangementhyponatremia, hypochloremia suggestive of volume depletion COVID-19 infection Hyperglycemia Thrombocytopenia History of type 2 diabetes mellitus History of hypertension History of dyslipidemia COVID -19 Admit to hospitalist service for observation Continue telemetry monitoring Trend troponins Continue IV fluids Cardiology consulted planning for intervention on Thursday after few days of Covid treatment. R ISS and Accu-Cheks SCD for DVT prophylaxis Protonix GI prophylaxis Start Decadron Rocephin for Covid. Does not meet criteria for remdesivir right now. If he does can start then. ADA diet CODE STATUS full Discussed with RN and SW Disposition inpatient management as above DPOA: History of Present Illness History of Present Illness 10/15: ABG 7.5 01/09/1962 on 100% FiO2 Vapotherm 40 L/min with supplemental facemask O2. Seen bedside. Complains of rhinitis and try to get up to use urinal and desats into the low 80s with this. Counseled maintain his Vapotherm. Complains of pain behind his ear 10/14: Seen bedside. On 40 L/min 100% FiO2 with supplemental facemask. Has a little bit of an appetite. Significant desaturations with movement. No chest pain. Still short of breath with cough. Cardiac cath plans canceled. 10/13: Evaluated examined at bedside. Shortness of breath is a little bit worse and oxygenation has increased a little bit. Add on remdesivir today add doxycycline. 10/12: Evaluated and examined at bedside. Had just gotten back from bathroom a little SOB on increased O2 setting to sat back up but back up in 90's when seen. 10/11: Evaluate examined at bedside. Resting in bed. Understands this plan for procedure Thursday. Continuing COVID treatment. Plan discussed with bedside RN. 10/10: Patient evaluate examined at bedside. Was resting in bed really coughing. Informed of reason procedure pushed to Thursday with Covid positive. He understood well. Will start dexamethasone and Rocephin for Covid positivity. Rocephin cover any bacterial pneumonias. As needed cough medicine. If he starts require oxygen can start remdesivir then. Otherwise continue to follow. Up ad felicity. Vitals/I&O Vitals/I&O: Vital Signs Date Time Temp Pulse Resp B/P (MAP) Pulse Ox O2 Delivery O2 Flow Rate FiO2 10/15/21 10:59 90 VapoTherm 40.0 10/15/21 10:02 98.4 88 22 116/68 (84) 98.4 I & O 10/14/21 10/14/21 10/15/21 15:00 23:00 07:00 Intake Total 180 ml 300 ml Output Total 600 ml Balance 180 ml -300 ml Physical Exam General: Alert, Oriented X3, Cooperative, No acute distress Heart: Regular rate, Normal S1, Normal S2, No murmurs Lungs: Clear Abdomen: Soft, No tenderness, Other (truncakl obesity) Extremities: No cyanosis, No edema Skin: No breakdown, No significant lesion Labs Labs: Laboratory Tests Test 10/14/21 11:44 10/14/21 16:32 10/14/21 21:14 10/15/21 04:50 Glucose (Fingerstick) 200 mg/dL (70-99) 231 mg/dL (70-99) 236 mg/dL (70-99) Sodium Level 133 mmol/L (136-145) Potassium Level 4.0 mmol/L (3.5-5.1) Chloride Level 99 mmol/L (98-107) Carbon Dioxide Level 25 mmol/L (21-32) Anion Gap 9 (6-14) Blood Urea Nitrogen 26 mg/dL (8-26) Creatinine 0.8 mg/dL (0.7-1.3) Estimated GFR (Cockcroft-Gault) 97.0 BUN/Creatinine Ratio 33 (6-20) Glucose Level 133 mg/dL (70-99) Calcium Level 8.3 mg/dL (8.5-10.1) Total Bilirubin 0.8 mg/dL (0.2-1.0) Aspartate Amino Transf (AST/SGOT) 31 U/L (15-37) Alanine Aminotransferase (ALT/SGPT) 34 U/L (16-63) Alkaline Phosphatase 70 U/L (46-116) Total Protein 7.1 g/dL (6.4-8.2) Albumin 2.1 g/dL (3.4-5.0) Albumin/Globulin Ratio 0.4 (1.0-1.7) Test 10/15/21 07:51 10/15/21 11:00 Glucose (Fingerstick) 159 mg/dL (70-99) O2 Saturation 93 % (92-99) Arterial Blood pH 7.54 (7.35-7.45) Arterial Blood pCO2 at Patient Temp 28 mmHg (35-46) Arterial Blood pO2 at Patient Temp 63 mmHg (65-108) Arterial Blood HCO3 24 mmol/L (21-28) Arterial Blood Base Excess 2 mmol/L (-3-3) FiO2 100%vapo+nrb Assessment and Plan Assessmemt and Plan Problems Medical Problems: (1) Chest pain Status: Acute (2) Fever Status: Acute (3) Lab test positive for detection of COVID-19 virus Status: Acute Comment Review of Relevant I have reviewed the following items bo (where applicable) has been applied. Medications: Current Medications Medications (Trade) Dose Ordered Sig/Jodi Route PRN Reason Start Time Stop Time Status Last Admin Dose Admin Remdesivir 100 mg/ Sodium Chloride 230 ml @ 460 mls/hr Q24H IV 10/14/21 14:00 10/17/21 14:29 10/14/21 13:15 Justifications for Admission Other Justification Chest pain. NIKOLAI IQBAL MD Oct 15, 2021 11:14
[2021-10-15] MEDS ORDERED: ZINC OXIDE 20% TOPICAL OINTMENT 28GM TUBE. TP PRN (11:15)
--- NOTE | 2021-10-15 11:15 | RAD ---
EXAM: XR CHEST 1V 10/15/2021 9:56 AM CLINICAL INDICATION: Covid COMPARISON: Chest radiograph 10/09/2021 TECHNIQUE: AP semiupright view of the chest FINDINGS: Heart is mildly enlarged. Lungs are hypoexpanded. There are increased bibasilar opacities. No pleural effusion or pneumothorax. IMPRESSION: Hypoexpanded lungs with increased bibasilar opacities. Electronically signed by: Jeanne Chery MD (10/15/2021 11:13 AM) [id number]
[2021-10-15] MEDS: MORPHINE SULFATE 2 MG/ML INJ. IV PRN ×2 (11:53→20:22)
[2021-10-15] MEDS: REMDESIVIR 100mg in NORMAL SALINE 250ML X 4 DAYS IV SCH (13:20)
--- NOTE | 2021-10-15 14:26 | NUR ---
SS following up with discharge planning. SS reviewed pt chart and discussed with pt RN. Pt is currently on Vapotherm and Non-Rebreather at 100%. COVID19 positive. Pt on IV Remdesivir, IV Rocephin, IV Decadron, and PO Doxycycline. Not stable. SS will continue to follow for discharge planning.
[2021-10-15 15:44] VITALS: BP 116/69
[2021-10-15 19:45] VITALS: BP 117/75
[2021-10-15] MEDS: ATORVASTATIN CALCIUM 10 MG TABLET. PO SCH (20:21)
[2021-10-15] MEDS: ENOXAPARIN 40 MG/0.4 ML SYRINGE. SQ SCH (20:21)
[2021-10-15] MEDS: diphenhydrAMINE HCL 25 MG CAPSULE PO PRN (22:27)
[2021-10-15 22:40] VITALS: BP 125/78
[2021-10-16] MEDS: MORPHINE SULFATE 2 MG/ML INJ. IV PRN ×3 (01:08→20:52)
[2021-10-16 02:40] VITALS: BP 127/59
[2021-10-16 06:45] LABS: ALBUMIN 2.1 g/dL (3.4-5.0); ALBUMIN/GLOBULIN RATIO 0.5 (1.0-1.7); CALCIUM 7.8 mg/dL (8.5-10.1); CREATININE 0.8 mg/dL (0.7-1.3); POTASSIUM 4.4 mmol/L (3.5-5.1); TOTAL BILIRUBIN 0.7 mg/dL (0.2-1.0); TOTAL PROTEIN 6.2 g/dL (6.4-8.2)
[2021-10-16 07:00] VITALS: BP 131/65
[2021-10-16] MEDS: cefTRIAXone IV Push 1 GM VIAL. IVP SCH (07:59)
[2021-10-16] MEDS: guaiFENesin/CODEINE 100mg/10mg 5 ML LIQUID PO PRN ×2 (08:00→20:53)
[2021-10-16] MEDS: INSULIN LISPRO 300 UNITS/3 ML VIAL. SQ SCH ×3 (08:00→16:31)
[2021-10-16] MEDS: DEXAMETHASONE SOD PHOS 4 MG/ML VIAL IVP SCH (08:00)
[2021-10-16] MEDS: DOXYCYCLINE HYCLATE 100 MG TABLET PO SCH ×2 (08:01→20:51)
[2021-10-16] MEDS: LISINOPRIL 20 MG TABLET PO SCH (08:01)
[2021-10-16] MEDS: metFORMIN 500 MG TABLET PO SCH ×2 (08:01→16:30)
[2021-10-16] MEDS: ASPIRIN ENTERIC COATED 81 MG TABLET.DR. PO SCH (08:01)
[2021-10-16] MEDS: LACTOBACILLUS RHAMNOSUS GG 1 CAPSULE. PO SCH ×2 (08:02→20:51)
[2021-10-16 10:01] VITALS: BP 120/59
[2021-10-16] MEDS: STERILE WATER for RESP 1,000 ML BAG. INH PRN ×3 (10:54→22:13)
--- NOTE | 2021-10-16 12:24 | NUR ---
SS following up with discharge planning. SS reviewed pt chart and discussed with pt RN. Pt is currently on Vapotherm and Non-Rebreather at 100%. COVID19 positive. Pt on IV Remdesivir, IV Decadron, and PO Doxycycline. Not stable. SS will continue to follow for discharge planning.
[2021-10-16] MEDS: REMDESIVIR 100mg in NORMAL SALINE 250ML X 4 DAYS IV SCH (12:49)
--- NOTE | 2021-10-16 13:17 | PDOC ---
PULMONARY PROGRESS NOTES DATE: 10/16/21 TIME: 13:15 Subjective Patient short of breath at times Currently on BiPAP and Vapotherm Vitals Vital Signs Date Time Temp Pulse Resp B/P (MAP) Pulse Ox O2 Delivery O2 Flow Rate FiO2 10/16/21 11:34 93 VAPOTHERM 40.0 10/16/21 10:01 98.0 86 24 120/59 (79) 98.0 ROS: No Nausea General: Alert Lungs: Clear Abdomen: Soft, Non-tender Neuro Exam: Alert Extremities: No Edema Skin: Warm, No Rashes Labs Laboratory Tests Test 10/14/21 16:32 10/14/21 21:14 10/15/21 04:50 10/15/21 07:51 Glucose (Fingerstick) 231 mg/dL (70-99) 236 mg/dL (70-99) 159 mg/dL (70-99) Sodium Level 133 mmol/L (136-145) Potassium Level 4.0 mmol/L (3.5-5.1) Chloride Level 99 mmol/L (98-107) Carbon Dioxide Level 25 mmol/L (21-32) Anion Gap 9 (6-14) Blood Urea Nitrogen 26 mg/dL (8-26) Creatinine 0.8 mg/dL (0.7-1.3) Estimated GFR (Cockcroft-Gault) 97.0 BUN/Creatinine Ratio 33 (6-20) Glucose Level 133 mg/dL (70-99) Calcium Level 8.3 mg/dL (8.5-10.1) Total Bilirubin 0.8 mg/dL (0.2-1.0) Aspartate Amino Transf (AST/SGOT) 31 U/L (15-37) Alanine Aminotransferase (ALT/SGPT) 34 U/L (16-63) Alkaline Phosphatase 70 U/L (46-116) Total Protein 7.1 g/dL (6.4-8.2) Albumin 2.1 g/dL (3.4-5.0) Albumin/Globulin Ratio 0.4 (1.0-1.7) Test 10/15/21 11:00 10/15/21 11:45 10/15/21 21:05 10/16/21 04:30 O2 Saturation 93 % (92-99) Arterial Blood pH 7.54 (7.35-7.45) Arterial Blood pCO2 at Patient Temp 28 mmHg (35-46) Arterial Blood pO2 at Patient Temp 63 mmHg (65-108) Arterial Blood HCO3 24 mmol/L (21-28) Arterial Blood Base Excess 2 mmol/L (-3-3) FiO2 100%vapo+nrb Glucose (Fingerstick) 211 mg/dL (70-99) 136 mg/dL (70-99) Sodium Level 131 mmol/L (136-145) Potassium Level 4.4 mmol/L (3.5-5.1) Chloride Level 98 mmol/L (98-107) Carbon Dioxide Level 25 mmol/L (21-32) Anion Gap 8 (6-14) Blood Urea Nitrogen 28 mg/dL (8-26) Creatinine 0.8 mg/dL (0.7-1.3) Estimated GFR (Cockcroft-Gault) 97.0 BUN/Creatinine Ratio 35 (6-20) Glucose Level 123 mg/dL (70-99) Calcium Level 7.8 mg/dL (8.5-10.1) Total Bilirubin 0.7 mg/dL (0.2-1.0) Aspartate Amino Transf (AST/SGOT) 30 U/L (15-37) Alanine Aminotransferase (ALT/SGPT) 32 U/L (16-63) Alkaline Phosphatase 85 U/L (46-116) Total Protein 6.2 g/dL (6.4-8.2) Albumin 2.1 g/dL (3.4-5.0) Albumin/Globulin Ratio 0.5 (1.0-1.7) Test 10/16/21 08:09 10/16/21 11:25 Glucose (Fingerstick) 145 mg/dL (70-99) 227 mg/dL (70-99) Laboratory Tests Test 10/15/21 21:05 10/16/21 04:30 10/16/21 08:09 10/16/21 11:25 Glucose (Fingerstick) 136 mg/dL (70-99) 145 mg/dL (70-99) 227 mg/dL (70-99) Sodium Level 131 mmol/L (136-145) Potassium Level 4.4 mmol/L (3.5-5.1) Chloride Level 98 mmol/L (98-107) Carbon Dioxide Level 25 mmol/L (21-32) Anion Gap 8 (6-14) Blood Urea Nitrogen 28 mg/dL (8-26) Creatinine 0.8 mg/dL (0.7-1.3) Estimated GFR (Cockcroft-Gault) 97.0 BUN/Creatinine Ratio 35 (6-20) Glucose Level 123 mg/dL (70-99) Calcium Level 7.8 mg/dL (8.5-10.1) Total Bilirubin 0.7 mg/dL (0.2-1.0) Aspartate Amino Transf (AST/SGOT) 30 U/L (15-37) Alanine Aminotransferase (ALT/SGPT) 32 U/L (16-63) Alkaline Phosphatase 85 U/L (46-116) Total Protein 6.2 g/dL (6.4-8.2) Albumin 2.1 g/dL (3.4-5.0) Albumin/Globulin Ratio 0.5 (1.0-1.7) Medications Active Scripts Medications Dose Route/Sig Max Daily Dose Days Date Category Lipitor (Atorvastatin Calcium) 10 Mg Tablet 1 Tab PO QHS 10/10/21 Reported Lisinopril 20 Mg Tablet 1 Tab PO DAILY 08/11/14 Reported Metformin Hcl 500 Mg Tablet 1 Tab PO BID 08/11/14 Reported Impression . IMPRESSION: 1. Acute hypoxemic respiratory failure. 2. COVID-19 viral pneumonia/acute respiratory distress syndrome. 3. Possible bacterial pneumonia. 4. Chest pain, unstable angina, possible coronary artery disease. 5. Hypertension. 6. Hyperlipidemia. 7. Type 2 diabetes. Plan . Hopefully patient does not deteriorate continue current support Not more short of breath today Hold off on cardiac catheterization Discussed with cardiology DELFIN FRANCO MD Oct 16, 2021 13:17
--- NOTE | 2021-10-16 14:54 | PDOC ---
[facility] PROGRESS NOTE Date of Service DOS: DATE: 10/16/21 TIME: 14:52 Chief Complaint Chief Complaint Atypical chest pain, rule out ACS Acute electrolyte derangementhyponatremia, hypochloremia suggestive of volume depletion COVID-19 infection Hyperglycemia Thrombocytopenia History of type 2 diabetes mellitus History of hypertension History of dyslipidemia COVID -19 Admit to hospitalist service for observation Continue telemetry monitoring Trend troponins Continue IV fluids Cardiology consulted planning for intervention on Thursday after few days of Covid treatment. R ISS and Accu-Cheks SCD for DVT prophylaxis Protonix GI prophylaxis Start Decadron Rocephin for Covid. Does not meet criteria for remdesivir right now. If he does can start then. ADA diet CODE STATUS full Discussed with RN and SW Disposition inpatient management as above DPOA: History of Present Illness History of Present Illness 10/16: Seen bedside on her percent FiO2 Vapotherm 40 L/min with supplemental facemask O2. Chest radiograph with poor inspiratory effort. Is still gets relatively significant desaturations. Counseled on incentive spirometer and severity of his disease. Sodium is 131 today he says he is eating okay. 10/15: ABG 7.5 [birth year] on 100% FiO2 Vapotherm 40 L/min with supplemental facemask O2. Seen bedside. Complains of rhinitis and try to get up to use urinal and desats into the low 80s with this. Counseled maintain his Vapotherm. Complains of pain behind his ear 10/14: Seen bedside. On 40 L/min 100% FiO2 with supplemental facemask. Has a little bit of an appetite. Significant desaturations with movement. No chest pain. Still short of breath with cough. Cardiac cath plans canceled. 10/13: Evaluated examined at bedside. Shortness of breath is a little bit worse and oxygenation has increased a little bit. Add on remdesivir today add doxycycline. 10/12: Evaluated and examined at bedside. Had just gotten back from bathroom a little SOB on increased O2 setting to sat back up but back up in 90's when seen. 10/11: Evaluate examined at bedside. Resting in bed. Understands this plan for procedure Thursday. Continuing COVID treatment. Plan discussed with bedside RN. 10/10: Patient evaluate examined at bedside. Was resting in bed really coughing. Informed of reason procedure pushed to Thursday with Covid positive. He understood well. Will start dexamethasone and Rocephin for Covid positivity. Rocephin cover any bacterial pneumonias. As needed cough medicine. If he starts require oxygen can start remdesivir then. Otherwise continue to follow. Up ad felicity. Vitals/I&O Vitals/I&O: Vital Signs Date Time Temp Pulse Resp B/P (MAP) Pulse Ox O2 Delivery O2 Flow Rate FiO2 10/16/21 11:34 93 VAPOTHERM 40.0 10/16/21 10:01 98.0 86 24 120/59 (79) 98.0 I & O 10/15/21 10/15/21 10/16/21 15:00 23:00 07:00 Intake Total 420 ml 180 ml 100 ml Output Total 500 ml 150 ml 200 ml Balance -80 ml 30 ml -100 ml Physical Exam General: Alert, Oriented X3, Cooperative, No acute distress Heart: Regular rate, Normal S1, Normal S2, No murmurs Lungs: Clear Abdomen: Soft, No tenderness, Other (truncakl obesity) Extremities: No cyanosis, No edema Skin: No breakdown, No significant lesion Labs Labs: Laboratory Tests Test 10/15/21 21:05 10/16/21 04:30 10/16/21 08:09 10/16/21 11:25 Glucose (Fingerstick) 136 mg/dL (70-99) 145 mg/dL (70-99) 227 mg/dL (70-99) Sodium Level 131 mmol/L (136-145) Potassium Level 4.4 mmol/L (3.5-5.1) Chloride Level 98 mmol/L (98-107) Carbon Dioxide Level 25 mmol/L (21-32) Anion Gap 8 (6-14) Blood Urea Nitrogen 28 mg/dL (8-26) Creatinine 0.8 mg/dL (0.7-1.3) Estimated GFR (Cockcroft-Gault) 97.0 BUN/Creatinine Ratio 35 (6-20) Glucose Level 123 mg/dL (70-99) Calcium Level 7.8 mg/dL (8.5-10.1) Total Bilirubin 0.7 mg/dL (0.2-1.0) Aspartate Amino Transf (AST/SGOT) 30 U/L (15-37) Alanine Aminotransferase (ALT/SGPT) 32 U/L (16-63) Alkaline Phosphatase 85 U/L (46-116) Total Protein 6.2 g/dL (6.4-8.2) Albumin 2.1 g/dL (3.4-5.0) Albumin/Globulin Ratio 0.5 (1.0-1.7) Assessment and Plan Assessmemt and Plan Problems Medical Problems: (1) Chest pain Status: Acute (2) Fever Status: Acute (3) Lab test positive for detection of COVID-19 virus Status: Acute Comment Review of Relevant I have reviewed the following items bo (where applicable) has been applied. Justifications for Admission Other Justification Chest pain. NIKOLAI IQBAL MD Oct 16, 2021 14:53
[2021-10-16 15:00] VITALS: BP 128/72
--- NOTE | 2021-10-16 15:27 | PDOC ---
PROGRESS NOTES Date of Service: DATE: 10/16/21 TIME: 15:27 Subjective Subjective No new complaints Objective Objective Vital Signs Date Time Temp Pulse Resp B/P (MAP) Pulse Ox O2 Delivery O2 Flow Rate FiO2 10/16/21 11:34 93 VAPOTHERM 40.0 10/16/21 10:01 98.0 86 24 120/59 (79) 98.0 Intake and Output 10/16/21 07:00 Intake Total 700 ml Output Total 850 ml Balance -150 ml Intake Oral 700 ml Output Urine Total 850 ml Physical Exam Abdomen: Soft, No tenderness, Other (truncakl obesity) Heart: Regular rate, Normal S1, Normal S2, No murmurs Extremities: No cyanosis, No edema General: Alert, Oriented X3, Cooperative, No acute distress HEENT: Atraumatic, Mucous membr. moist/pink Lungs: Clear to auscultation, Normal air movement Neuro: Normal speech, Sensation intact Psych/Mental Status: Mental status NL, Mood NL Skin: No breakdown, No significant lesion Assessment Assessment 1. Chest pain with atypical features; AMI ruled out 2 Acute respiratory failure secondary to COVID PNA 3. HTN: controlled 4. HLP 5. DM2 6. Strong family hx of CAD 7. Morbid obesity Recommendations Continue ASA, statin Ongoing pulmonary optimization, treatment of COVID PNA Supportive care for now and plan for cardiac cath once covid recovered Plan Plan of Care Problems Medical Problems: (1) Chest pain Status: Acute (2) Fever Status: Acute (3) Lab test positive for detection of COVID-19 virus Status: Acute Comment Review of Relevant I have reviewed the following items bo (where applicable) has been applied. Labs Laboratory Tests Test 10/15/21 21:05 10/16/21 04:30 10/16/21 08:09 10/16/21 11:25 Glucose (Fingerstick) 136 mg/dL (70-99) 145 mg/dL (70-99) 227 mg/dL (70-99) Sodium Level 131 mmol/L (136-145) Potassium Level 4.4 mmol/L (3.5-5.1) Chloride Level 98 mmol/L (98-107) Carbon Dioxide Level 25 mmol/L (21-32) Anion Gap 8 (6-14) Blood Urea Nitrogen 28 mg/dL (8-26) Creatinine 0.8 mg/dL (0.7-1.3) Estimated GFR (Cockcroft-Gault) 97.0 BUN/Creatinine Ratio 35 (6-20) Glucose Level 123 mg/dL (70-99) Calcium Level 7.8 mg/dL (8.5-10.1) Total Bilirubin 0.7 mg/dL (0.2-1.0) Aspartate Amino Transf (AST/SGOT) 30 U/L (15-37) Alanine Aminotransferase (ALT/SGPT) 32 U/L (16-63) Alkaline Phosphatase 85 U/L (46-116) Total Protein 6.2 g/dL (6.4-8.2) Albumin 2.1 g/dL (3.4-5.0) Albumin/Globulin Ratio 0.5 (1.0-1.7) Microbiology 10/09/21 Blood Culture - Final, Complete NO GROWTH AFTER 5 DAYS Vitals/I & O Vital Sign - Last 24 Hours 10/15/21 10/15/21 10/15/21 10/15/21 15:44 16:30 19:33 19:45 Temp 98.4 97.6 98.4 97.6 Pulse 74 80 Resp 24 28 B/P (MAP) 116/69 (85) 117/75 (89) Pulse Ox 95 89 88 84 O2 Delivery VAPOTHERM 40L @ 100% & NRB 15L VapoTherm VAPOTHERM VAPOTHERM 40L @ 100% & NRB @ 15L O2 Flow Rate 40.0 40.0 10/15/21 10/15/21 10/15/21 10/15/21 20:00 20:22 20:52 22:40 Temp 97.6 97.6 Pulse 79 Resp 18 28 B/P (MAP) 125/78 (94) Pulse Ox 88 90 90 O2 Delivery Vapotherm 15 L NRB and vapotherm vapotherm + NRB VAPOTHERM 40L @ 100% & NRB @ 15L O2 Flow Rate 40.0 40.0 40.0 10/16/21 10/16/21 10/16/21 10/16/21 01:00 01:08 01:38 02:40 Temp 96.2 96.2 Pulse 83 Resp B/P (MAP) 127/59 (81) Pulse Ox 86 90 87 87 O2 Delivery VAPOTHERM vapotherm and nrb vapotherm +NRB VAPOTHERM 40L @ 100% & NRB @ 15L O2 Flow Rate 40.0 40.0 40.0 10/16/21 10/16/21 10/16/21 10/16/21 04:00 07:00 07:37 08:00 Temp 98.9 98.9 Pulse 99 Resp 22 B/P (MAP) 131/65 (87) Pulse Ox 93 95 94 O2 Delivery VAPOTHERM VAPOTHERM 40L @ 100% & NRB @ 15L VAPOTHERM Vapotherm O2 Flow Rate 40.0 40.0 40.0 10/16/21 10/16/21 10/16/21 10/16/21 08:01 08:01 08:31 10:01 Temp 98.0 98.0 Pulse 83 86 Resp 20 24 B/P (MAP) 127/59 120/59 (79) Pulse Ox 94 94 90 O2 Delivery Vapotherm VAPOTHERM 40L @ 100% & NRB @ 15L O2 Flow Rate 40.0 40.0 10/16/21 11:34 Pulse Ox 93 O2 Delivery VAPOTHERM O2 Flow Rate 40.0 Intake and Output 10/15/21 10/15/21 10/16/21 15:00 23:00 07:00 Intake Total 420 ml 180 ml 100 ml Output Total 500 ml 150 ml 200 ml Balance -80 ml 30 ml -100 ml KIYA PICKETT MD Oct 16, 2021 15:27
[2021-10-16 19:27] VITALS: BP 132/72
[2021-10-16] MEDS: diphenhydrAMINE HCL 25 MG CAPSULE PO PRN (20:51)
[2021-10-16] MEDS: DOCUSATE SODIUM 100 MG CAPSULE. PO PRN (20:51)
[2021-10-16] MEDS: ATORVASTATIN CALCIUM 10 MG TABLET. PO SCH (20:51)
[2021-10-16] MEDS: LORazepam 0.5 MG TABLET PO PRN (20:51)
[2021-10-16] MEDS: ENOXAPARIN 40 MG/0.4 ML SYRINGE. SQ SCH (20:52)
[2021-10-16 22:17] VITALS: BP 111/62
[2021-10-17 02:45] VITALS: BP 113/68
[2021-10-17 04:42] LABS: ALBUMIN/GLOBULIN RATIO 0.5 (1.0-1.7); CALCIUM 7.7 mg/dL (8.5-10.1); CREATININE 0.8 mg/dL (0.7-1.3); POTASSIUM 4.3 mmol/L (3.5-5.1); TOTAL BILIRUBIN 0.7 mg/dL (0.2-1.0)
[2021-10-17] MEDS: guaiFENesin/CODEINE 100mg/10mg 5 ML LIQUID PO PRN ×2 (04:57→20:24)
--- NOTE | 2021-10-17 05:00 | NUR ---
last night at shift change he was sitting in the recliner. and was up about 30 min. once back to bed he struggled all night to recover from the recliner. then at 5 am pt said and looked like he was wearing out , rr 36, and is worried about getting nurishment in his iv, because he just cant eat sob. pt al has vapo therm .explained to pt poc. he said he just wants to get better. lcrn
[2021-10-17] MEDS: MORPHINE SULFATE 2 MG/ML INJ. IV PRN ×2 (05:20→20:23)
[2021-10-17 07:00] VITALS: BP 124/75
[2021-10-17] MEDS: metFORMIN 500 MG TABLET PO SCH ×2 (08:00→17:00)
[2021-10-17] MEDS: INSULIN LISPRO 300 UNITS/3 ML VIAL. SQ SCH ×3 (08:00→17:00)
[2021-10-17] MEDS: LISINOPRIL 20 MG TABLET PO SCH (09:00)
[2021-10-17] MEDS: LORazepam 0.5 MG TABLET PO PRN (09:24)
[2021-10-17] MEDS: DOXYCYCLINE HYCLATE 100 MG TABLET PO SCH ×2 (09:24→20:23)
[2021-10-17] MEDS: LACTOBACILLUS RHAMNOSUS GG 1 CAPSULE. PO SCH ×2 (09:24→20:23)
[2021-10-17] MEDS: ASPIRIN ENTERIC COATED 81 MG TABLET.DR. PO SCH (09:24)
[2021-10-17] MEDS: DEXAMETHASONE SOD PHOS 4 MG/ML VIAL IVP SCH (09:25)
--- NOTE | 2021-10-17 09:31 | PDOC ---
PULMONARY PROGRESS NOTES DATE: 10/17/21 TIME: 09:31 Subjective Patient short of breath at times Currently on BiPAP and Vapotherm Vitals Vital Signs Date Time Temp Pulse Resp B/P (MAP) Pulse Ox O2 Delivery O2 Flow Rate FiO2 10/17/21 09:00 90 113/68 10/17/21 07:23 91 BiPAP/CPAP 10/17/21 02:45 97.9 30 97.9 10/17/21 01:58 40.0 ROS: No Nausea General: Alert Lungs: Clear Abdomen: Soft, Non-tender Neuro Exam: Alert Extremities: No Edema Skin: Warm, No Rashes Labs Laboratory Tests Test 10/15/21 11:00 10/15/21 11:45 10/15/21 21:05 10/16/21 04:30 O2 Saturation 93 % (92-99) Arterial Blood pH 7.54 (7.35-7.45) Arterial Blood pCO2 at Patient Temp 28 mmHg (35-46) Arterial Blood pO2 at Patient Temp 63 mmHg (65-108) Arterial Blood HCO3 24 mmol/L (21-28) Arterial Blood Base Excess 2 mmol/L (-3-3) FiO2 100%vapo+nrb Glucose (Fingerstick) 211 mg/dL (70-99) 136 mg/dL (70-99) Sodium Level 131 mmol/L (136-145) Potassium Level 4.4 mmol/L (3.5-5.1) Chloride Level 98 mmol/L (98-107) Carbon Dioxide Level 25 mmol/L (21-32) Anion Gap 8 (6-14) Blood Urea Nitrogen 28 mg/dL (8-26) Creatinine 0.8 mg/dL (0.7-1.3) Estimated GFR (Cockcroft-Gault) 97.0 BUN/Creatinine Ratio 35 (6-20) Glucose Level 123 mg/dL (70-99) Calcium Level 7.8 mg/dL (8.5-10.1) Total Bilirubin 0.7 mg/dL (0.2-1.0) Aspartate Amino Transf (AST/SGOT) 30 U/L (15-37) Alanine Aminotransferase (ALT/SGPT) 32 U/L (16-63) Alkaline Phosphatase 85 U/L (46-116) Total Protein 6.2 g/dL (6.4-8.2) Albumin 2.1 g/dL (3.4-5.0) Albumin/Globulin Ratio 0.5 (1.0-1.7) Test 10/16/21 08:09 10/16/21 11:25 10/16/21 16:08 10/16/21 20:30 Glucose (Fingerstick) 145 mg/dL (70-99) 227 mg/dL (70-99) 248 mg/dL (70-99) 200 mg/dL (70-99) Test 10/17/21 03:15 10/17/21 08:02 Sodium Level 130 mmol/L (136-145) Potassium Level 4.3 mmol/L (3.5-5.1) Chloride Level 97 mmol/L (98-107) Carbon Dioxide Level 26 mmol/L (21-32) Anion Gap 7 (6-14) Blood Urea Nitrogen 27 mg/dL (8-26) Creatinine 0.8 mg/dL (0.7-1.3) Estimated GFR (Cockcroft-Gault) 97.0 BUN/Creatinine Ratio 34 (6-20) Glucose Level 135 mg/dL (70-99) Calcium Level 7.7 mg/dL (8.5-10.1) Total Bilirubin 0.7 mg/dL (0.2-1.0) Aspartate Amino Transf (AST/SGOT) 25 U/L (15-37) Alanine Aminotransferase (ALT/SGPT) 22 U/L (16-63) Alkaline Phosphatase 88 U/L (46-116) Total Protein 6.0 g/dL (6.4-8.2) Albumin 2.0 g/dL (3.4-5.0) Albumin/Globulin Ratio 0.5 (1.0-1.7) Glucose (Fingerstick) 151 mg/dL (70-99) Laboratory Tests Test 10/16/21 11:25 10/16/21 16:08 10/16/21 20:30 10/17/21 03:15 Glucose (Fingerstick) 227 mg/dL (70-99) 248 mg/dL (70-99) 200 mg/dL (70-99) Sodium Level 130 mmol/L (136-145) Potassium Level 4.3 mmol/L (3.5-5.1) Chloride Level 97 mmol/L (98-107) Carbon Dioxide Level 26 mmol/L (21-32) Anion Gap 7 (6-14) Blood Urea Nitrogen 27 mg/dL (8-26) Creatinine 0.8 mg/dL (0.7-1.3) Estimated GFR (Cockcroft-Gault) 97.0 BUN/Creatinine Ratio 34 (6-20) Glucose Level 135 mg/dL (70-99) Calcium Level 7.7 mg/dL (8.5-10.1) Total Bilirubin 0.7 mg/dL (0.2-1.0) Aspartate Amino Transf (AST/SGOT) 25 U/L (15-37) Alanine Aminotransferase (ALT/SGPT) 22 U/L (16-63) Alkaline Phosphatase 88 U/L (46-116) Total Protein 6.0 g/dL (6.4-8.2) Albumin 2.0 g/dL (3.4-5.0) Albumin/Globulin Ratio 0.5 (1.0-1.7) Test 10/17/21 08:02 Glucose (Fingerstick) 151 mg/dL (70-99) Medications Active Scripts Medications Dose Route/Sig Max Daily Dose Days Date Category Lipitor (Atorvastatin Calcium) 10 Mg Tablet 1 Tab PO QHS 10/10/21 Reported Lisinopril 20 Mg Tablet 1 Tab PO DAILY 08/11/14 Reported Metformin Hcl 500 Mg Tablet 1 Tab PO BID 08/11/14 Reported Impression . IMPRESSION: 1. Acute hypoxemic respiratory failure. 2. COVID-19 viral pneumonia/acute respiratory distress syndrome. 3. Possible bacterial pneumonia. 4. Chest pain, unstable angina, possible coronary artery disease. 5. Hypertension. 6. Hyperlipidemia. 7. Type 2 diabetes. Plan . May need ICU ttansfer if worsens Hopefully patient does not deteriorate continue current support Not more short of breath today Hold off on cardiac catheterization Discussed with cardiology DELFIN FRANCO MD Oct 17, 2021 09:31
--- NOTE | 2021-10-17 10:03 | PDOC ---
VANDANA LEWIS [employer] 10/17/21 1003: CARDIO Progress Notes Date and Time Date of Service 10/17/21 Time of Evaluation 1000 Subjective Subjective: No Chest Pain, No Palpitations, Other (on BiPAP) Vitals Vitals Vital Signs Date Time Temp Pulse Resp B/P (MAP) Pulse Ox O2 Delivery O2 Flow Rate FiO2 10/17/21 09:00 90 113/68 10/17/21 07:23 91 BiPAP/CPAP 10/17/21 02:45 97.9 30 97.9 10/17/21 01:58 40.0 Weight Weight [ ] Input and Output Intake and Output Intake and Output 10/17/21 07:00 Intake Total 1090 ml Output Total 450 ml Balance 640 ml Intake Oral 860 ml IV Total 230 ml Output Urine Total 450 ml Laboratory Labs Laboratory Tests Test 10/16/21 11:25 10/16/21 16:08 10/16/21 20:30 10/17/21 03:15 Glucose (Fingerstick) 227 mg/dL (70-99) 248 mg/dL (70-99) 200 mg/dL (70-99) Sodium Level 130 mmol/L (136-145) Potassium Level 4.3 mmol/L (3.5-5.1) Chloride Level 97 mmol/L (98-107) Carbon Dioxide Level 26 mmol/L (21-32) Anion Gap 7 (6-14) Blood Urea Nitrogen 27 mg/dL (8-26) Creatinine 0.8 mg/dL (0.7-1.3) Estimated GFR (Cockcroft-Gault) 97.0 BUN/Creatinine Ratio 34 (6-20) Glucose Level 135 mg/dL (70-99) Calcium Level 7.7 mg/dL (8.5-10.1) Total Bilirubin 0.7 mg/dL (0.2-1.0) Aspartate Amino Transf (AST/SGOT) 25 U/L (15-37) Alanine Aminotransferase (ALT/SGPT) 22 U/L (16-63) Alkaline Phosphatase 88 U/L (46-116) Total Protein 6.0 g/dL (6.4-8.2) Albumin 2.0 g/dL (3.4-5.0) Albumin/Globulin Ratio 0.5 (1.0-1.7) Test 10/17/21 08:02 Glucose (Fingerstick) 151 mg/dL (70-99) Microbiology Micro Microbiology 10/09/21 Blood Culture - Final, Complete NO GROWTH AFTER 5 DAYS Physical Exam HEENT: Neck Supple W Full Motion Chest: Symmetric LUNGS: Other (diminished, on BiPAP/vapotherm) Heart: RRR (SR) Abdomen: Soft N/T, Other (obese) Extremities: No Calf Tenderness Neurology: alert, oriented, follow commands Assessment Assessment 1. Chest pain; AMI ruled out 2 Acute respiratory failure secondary to COVID PNA 3. HTN: controlled 4. HLP 5. DM2 6. Strong family hx of CAD 7. Morbid obesity Recommendations Continue ASA, statin Ongoing pulmonary optimization, treatment of COVID PNA Supportive care for now and plan for cardiac cath once covid recovered Justicifation of Admission Dx: Justifications for Admission: Justification of Admission Dx: Yes KIYA PICKETT MD 10/18/21 0901: CARDIO Progress Notes Assessment Assessment Patient seen and examined 10/17/2021. Agree with PLANT TECH's assessment and plan. Continue current treatment for Covid pneumonia Telemetry did not show any significant arrhythmias Plan for cardiac catheterization to evaluate his unstable angina once Covid recovered VANDANA LEWIS APRN Oct 17, 2021 10:03 KIYA PICKETT MD Oct 18, 2021 09:01
[2021-10-17 11:00] VITALS: BP 155/95
--- NOTE | 2021-10-17 12:30 | NUR ---
SS following up with discharge planning. SS reviewed pt chart and discussed with pt RN. Pt is currently on Vapotherm and BIPAP at 100%. COVID19 positive. Pt on IV Remdesivir, IV Decadron, and PO Doxycycline. Not stable. SS will continue to follow for discharge planning.
--- NOTE | 2021-10-17 12:39 | PDOC ---
[facility] PROGRESS NOTE Date of Service DOS: DATE: 10/17/21 TIME: 12:38 Chief Complaint Chief Complaint Atypical chest pain, rule out ACS Acute electrolyte derangementhyponatremia, hypochloremia suggestive of volume depletion COVID-19 infection Hyperglycemia Thrombocytopenia History of type 2 diabetes mellitus History of hypertension History of dyslipidemia COVID -19 Admit to hospitalist service for observation Continue telemetry monitoring Trend troponins Continue IV fluids Cardiology consulted planning for intervention on Thursday after few days of Covid treatment. R ISS and Accu-Cheks SCD for DVT prophylaxis Protonix GI prophylaxis Start Decadron Rocephin for Covid. Does not meet criteria for remdesivir right now. If he does can start then. ADA diet CODE STATUS full Discussed with RN and SW Disposition inpatient management as above DPOA: History of Present Illness History of Present Illness 10/17: Further to desaturations as supplemental BiPAP in addition to Vapotherm 40 L/min 100% FiO2. He is able to converse. He does not want to be intubated if he would have a prolonged stay on the ventilator and is asked if his can be updated. NA 130. Not eating. Consentable to PICC line 10/16: Seen bedside on her percent FiO2 Vapotherm 40 L/min with supplemental facemask O2. Chest radiograph with poor inspiratory effort. Is still gets relatively significant desaturations. Counseled on incentive spirometer and severity of his disease. Sodium is 131 today he says he is eating okay. 10/15: ABG 7.5 01/09/63 on 100% FiO2 Vapotherm 40 L/min with supplemental facemask O2. Seen bedside. Complains of rhinitis and try to get up to use urinal and desats into the low 80s with this. Counseled maintain his Vapotherm. Complains of pain behind his ear 10/14: Seen bedside. On 40 L/min 100% FiO2 with supplemental facemask. Has a little bit of an appetite. Significant desaturations with movement. No chest pain. Still short of breath with cough. Cardiac cath plans canceled. 10/13: Evaluated examined at bedside. Shortness of breath is a little bit worse and oxygenation has increased a little bit. Add on remdesivir today add doxycycline. 10/12: Evaluated and examined at bedside. Had just gotten back from bathroom a little SOB on increased O2 setting to sat back up but back up in 90's when seen. 10/11: Evaluate examined at bedside. Resting in bed. Understands this plan for procedure Thursday. Continuing COVID treatment. Plan discussed with bedside RN. 10/10: Patient evaluate examined at bedside. Was resting in bed really coughing. Informed of reason procedure pushed to Thursday with Covid positive. He understood well. Will start dexamethasone and Rocephin for Covid positivity. Rocephin cover any bacterial pneumonias. As needed cough medicine. If he starts require oxygen can start remdesivir then. Otherwise continue to follow. Up ad felicity. Vitals/I&O Vitals/I&O: Vital Signs Date Time Temp Pulse Resp B/P (MAP) Pulse Ox O2 Delivery O2 Flow Rate FiO2 10/17/21 11:32 92 BiPAP/CPAP 10/17/21 11:00 97.8 88 18 155/95 (115) 97.8 10/17/21 08:00 40.0 I & O 10/16/21 10/16/21 10/17/21 15:00 23:00 07:00 Intake Total 610 ml 180 ml 300 ml Output Total 250 ml 200 ml Balance 360 ml -20 ml 300 ml Physical Exam General: Alert, Oriented X3, Cooperative, No acute distress Heart: Regular rate, Normal S1, Normal S2, No murmurs Lungs: Clear Abdomen: Soft, No tenderness, Other (truncakl obesity) Extremities: No cyanosis, No edema Skin: No breakdown, No significant lesion Labs Labs: Laboratory Tests Test 10/16/21 16:08 10/16/21 20:30 10/17/21 03:15 10/17/21 08:02 Glucose (Fingerstick) 248 mg/dL (70-99) 200 mg/dL (70-99) 151 mg/dL (70-99) Sodium Level 130 mmol/L (136-145) Potassium Level 4.3 mmol/L (3.5-5.1) Chloride Level 97 mmol/L (98-107) Carbon Dioxide Level 26 mmol/L (21-32) Anion Gap 7 (6-14) Blood Urea Nitrogen 27 mg/dL (8-26) Creatinine 0.8 mg/dL (0.7-1.3) Estimated GFR (Cockcroft-Gault) 97.0 BUN/Creatinine Ratio 34 (6-20) Glucose Level 135 mg/dL (70-99) Calcium Level 7.7 mg/dL (8.5-10.1) Total Bilirubin 0.7 mg/dL (0.2-1.0) Aspartate Amino Transf (AST/SGOT) 25 U/L (15-37) Alanine Aminotransferase (ALT/SGPT) 22 U/L (16-63) Alkaline Phosphatase 88 U/L (46-116) Total Protein 6.0 g/dL (6.4-8.2) Albumin 2.0 g/dL (3.4-5.0) Albumin/Globulin Ratio 0.5 (1.0-1.7) Test 10/17/21 11:25 Glucose (Fingerstick) 192 mg/dL (70-99) Assessment and Plan Assessmemt and Plan Problems Medical Problems: (1) Chest pain Status: Acute (2) Fever Status: Acute (3) Lab test positive for detection of COVID-19 virus Status: Acute Comment Review of Relevant I have reviewed the following items bo (where applicable) has been applied. Justifications for Admission Other Justification Chest pain. NIKOLAI IQBAL MD Oct 17, 2021 12:39
--- NOTE | 2021-10-17 14:20 | NUR ---
Allergies and reactions NKDA INR 1.1 BUN 27 Cr 0.8 Platelets 130 Blood culture done Y blood culture results Negative 10/09/21 Order Verified Y Consent signed Y Previous PICC placement Past Medical/Surgical history and current diagnosis reviewed Y Patient Medical /Surgical History Related to PICC line placement Diabetes Infectious Disease consult Problems breathing lying flat Special considerations for PICC line placement Infections PICC placement indication Caustic medication class drug usage, watermaster antibiotic usage, Multiple/ Frequent blood draws, Poor peripheral intravenous access Total Parenteral Nutrition (TPN) Jacquelin Lan name of PICC Nurse
[2021-10-17 15:00] VITALS: BP 137/70
[2021-10-17] MEDS: REMDESIVIR 100mg in NORMAL SALINE 250ML X 4 DAYS IV SCH (15:42)
--- NOTE | 2021-10-17 15:44 | RAD ---
Single view chest dated 10/17/2021 3:40 PM: COMPARISON: 10/15/2021 Clinical Indication: PICC placement. Findings: Single upright portable exam of the chest was performed. Heart and mediastinal contours are stable. I nterval placement of right-sided PICC with tip not well seen but appears to terminate at the upper to mid SVC. There is patchy perihilar and bibasilar airspace disease, unchanged. No pleural effusion. N o pneumothorax. IMPRESSION: 1. Right-sided PICC with tip projected to the mid to upper SVC. 2. Bilateral airspace disease, unchanged. Electronically signed by: Hai Villeda MD (10/17/2021 3:41 PM) [id number]
--- NOTE | 2021-10-17 15:57 | NUR ---
Procedure: Following complete explanation of the PICC procedure including the indications, risks, and potential complications, informed consent was obtained. The possibility for infection was discussed along with signs, symptoms, and prevention. All the questions were answered. Written and verbal patient education was provided. Hand hygiene performed. Standardized central line checklist was utilized. The patient was placed in the supine position, the arm was prepped with chlorhexidine and patient draped with maximum sterile barrier. 3 mL 1% lidocaine was infiltrated into the skin to provide local anesthesia. A thorough assessment of right upper extremity completed. Using real-time ultrasound guidance and standardized micro puncture set, the cephalic vein was punctured and a peel away sheath was placed using the modified Seldinger technique. A tip location device was used to ensure adequate catheter placement. The catheter was secured using a securement device and an antimicrobial patch was applied directly on the insertion site followed by a transparent dressing. All ports withdraw blood and flush without resistance. Patient tolerated the procedure without apparent complication(s). Triple Lumen Power PICC placement successful and uncomplicated. Placement verified by chest x-ray. Tip located in the CAJ of the SVC. Complications: None Addendum: 10/18/21 at 0951 by NORBERT FIGUEROA RN charted that the vein used was cephalic when it was actually basilic
[2021-10-17 19:45] VITALS: BP 136/63
[2021-10-17] MEDS: diphenhydrAMINE HCL 25 MG CAPSULE PO PRN (20:22)
[2021-10-17] MEDS: ENOXAPARIN 40 MG/0.4 ML SYRINGE. SQ SCH (20:22)
[2021-10-17] MEDS: ATORVASTATIN CALCIUM 10 MG TABLET. PO SCH (20:23)
[2021-10-17] MEDS: DOCUSATE SODIUM 100 MG CAPSULE. PO PRN (20:23)
[2021-10-17 22:21] VITALS: BP 136/71
[2021-10-17] MEDS: STERILE WATER for RESP 1,000 ML BAG. INH PRN (23:48)
[2021-10-18] VITALS (17 sets, daily range): BP systolic 72–153; BP diastolic 40–84
--- NOTE | 2021-10-18 00:20 | NUR ---
CALLED TO ROOM BY NURSE FOR PT DESAT, PT NEEDED PULLED UP IN BED AND NEW OXYGEN PROBE
--- NOTE | 2021-10-18 00:32 | NUR ---
for the last hour had been trying to get pts sats up from 70,s found his vapo therm was under bipap but wasnt in his nose. rearranged probe to be in his nose. sats went to mid to to high 70's. called rt mandeep and requested her assistance. went to pt room and rt was there. she did adjustment on the bipap and switched out probe from finger to his ear. resperations 39. sats now are 92%. but pt is awake, will continue to monitor closely. lcrn
--- NOTE | 2021-10-18 03:36 | NUR ---
PATIENT IS COMPLAINING OF PAIN IN ABDOMINAL AREA AND LOWER CHEST AREA POINTING AT STOMACH LOCATION, RECOMMEND SOMETHING FOR GAS DUE TO PATIENT BEING ON THE BIPAP AND PT IS BELCHING AND SNORE TOOTING
[2021-10-18] MEDS: SIMETHICONE 80 MG TAB.CHEW PO PRN ×2 (04:58→22:54)
[2021-10-18] MEDS: INSULIN LISPRO 300 UNITS/3 ML VIAL. SQ SCH ×3 (08:00→18:04)
[2021-10-18] MEDS: metFORMIN 500 MG TABLET PO SCH (08:00)
[2021-10-18] MEDS: ASPIRIN ENTERIC COATED 81 MG TABLET.DR. PO SCH (08:00)
--- NOTE | 2021-10-18 08:30 | PDOC ---
PULMONARY PROGRESS NOTES DATE: 10/18/21 TIME: 08:30 Subjective Patient short of breath at times, this morning having trouble with his mask Currently on BiPAP and Vapotherm Vitals Vital Signs Date Time Temp Pulse Resp B/P (MAP) Pulse Ox O2 Delivery O2 Flow Rate FiO2 10/18/21 07:38 98.0 77 153/70 (97) 96 Vapotherm 40L @ 100% 98.0 10/18/21 03:04 36 10/17/21 20:00 40.0 10/17/21 20:00 N/A ROS: No Nausea General: Alert Lungs: Clear Abdomen: Soft, Non-tender Neuro Exam: Alert Extremities: No Edema Skin: Warm, No Rashes Labs Laboratory Tests Test 10/16/21 11:25 10/16/21 16:08 10/16/21 20:30 10/17/21 03:15 Glucose (Fingerstick) 227 mg/dL (70-99) 248 mg/dL (70-99) 200 mg/dL (70-99) Sodium Level 130 mmol/L (136-145) Potassium Level 4.3 mmol/L (3.5-5.1) Chloride Level 97 mmol/L (98-107) Carbon Dioxide Level 26 mmol/L (21-32) Anion Gap 7 (6-14) Blood Urea Nitrogen 27 mg/dL (8-26) Creatinine 0.8 mg/dL (0.7-1.3) Estimated GFR (Cockcroft-Gault) 97.0 BUN/Creatinine Ratio 34 (6-20) Glucose Level 135 mg/dL (70-99) Calcium Level 7.7 mg/dL (8.5-10.1) Total Bilirubin 0.7 mg/dL (0.2-1.0) Aspartate Amino Transf (AST/SGOT) 25 U/L (15-37) Alanine Aminotransferase (ALT/SGPT) 22 U/L (16-63) Alkaline Phosphatase 88 U/L (46-116) Total Protein 6.0 g/dL (6.4-8.2) Albumin 2.0 g/dL (3.4-5.0) Albumin/Globulin Ratio 0.5 (1.0-1.7) Test 10/17/21 08:02 10/17/21 11:25 10/17/21 20:46 Glucose (Fingerstick) 151 mg/dL (70-99) 192 mg/dL (70-99) 283 mg/dL (70-99) Laboratory Tests Test 10/17/21 11:25 10/17/21 20:46 Glucose (Fingerstick) 192 mg/dL (70-99) 283 mg/dL (70-99) Medications Active Scripts Medications Dose Route/Sig Max Daily Dose Days Date Category Lipitor (Atorvastatin Calcium) 10 Mg Tablet 1 Tab PO QHS 10/10/21 Reported Lisinopril 20 Mg Tablet 1 Tab PO DAILY 08/11/14 Reported Metformin Hcl 500 Mg Tablet 1 Tab PO BID 08/11/14 Reported Impression . IMPRESSION: 1. Acute hypoxemic respiratory failure. 2. COVID-19 viral pneumonia/acute respiratory distress syndrome. 3. Possible bacterial pneumonia. 4. Chest pain, unstable angina, AMI ruled out 5. Hypertension. 6. Hyperlipidemia. 7. Type 2 diabetes. Plan . May need ICU transfer if worsens continue BIPAP continue antibiotics and steroids patient is s/p DELFIN Gonsales MD Oct 18, 2021 08:30
[2021-10-18] MEDS: LISINOPRIL 20 MG TABLET PO SCH (09:00)
[2021-10-18] MEDS: DOXYCYCLINE HYCLATE 100 MG TABLET PO SCH (09:00)
[2021-10-18] MEDS: LACTOBACILLUS RHAMNOSUS GG 1 CAPSULE. PO SCH ×2 (09:00→20:59)
[2021-10-18] MEDS: DEXAMETHASONE SOD PHOS 4 MG/ML VIAL IVP SCH (09:18)
[2021-10-18] MEDS ORDERED: IV DEXTROSE 5%-LACT RINGERS 1,000 ML IV ONE (10:45)
--- NOTE | 2021-10-18 10:45 | PDOC ---
[employer] PROGRESS NOTE Date of Service DOS: DATE: 10/18/21 TIME: 10:43 Chief Complaint Chief Complaint Atypical chest pain, rule out ACS Acute electrolyte derangementhyponatremia, hypochloremia suggestive of volume depletion COVID-19 infection Hyperglycemia Thrombocytopenia History of type 2 diabetes mellitus History of hypertension History of dyslipidemia COVID -19 Admit to hospitalist service for observation Continue telemetry monitoring Trend troponins Continue IV fluids Cardiology consulted planning for intervention on Thursday after few days of Covid treatment. R ISS and Accu-Cheks SCD for DVT prophylaxis Protonix GI prophylaxis Start Decadron Rocephin for Covid. Does not meet criteria for remdesivir right now. If he does can start then. ADA diet CODE STATUS full Discussed with RN and SW Disposition inpatient management as above DPOA: History of Present Illness History of Present Illness 10/18: Requiring nearly continuous BiPAP with supplemental Vapotherm 40 L/min percent FiO2 little drowsy today weak. Discussed with his . He is consentable to further interventions such as intubation Regonol is maintaining O2 saturations 92%. 10/17: Further to desaturations as supplemental BiPAP in addition to Vapotherm 40 L/min 100% FiO2. He is able to converse. He does not want to be intubated if he would have a prolonged stay on the ventilator and is asked if his can be updated. NA 130. Not eating. PICC line for TPN 10/16: Seen bedside on her percent FiO2 Vapotherm 40 L/min with supplemental facemask O2. Chest radiograph with poor inspiratory effort. Is still gets relatively significant desaturations. Counseled on incentive spirometer and severity of his disease. Sodium is 131 today he says he is eating 10/15: ABG 7.5 01/09/63 on 100% FiO2 Vapotherm 40 L/min with supplemental facemask O2. Seen bedside. Complains of rhinitis and try to get up to use urinal and desats into the low 80s with this. Counseled maintain his Vapotherm. Complains of pain behind his ear 10/14: Seen bedside. On 40 L/min 100% FiO2 with supplemental facemask. Has a little bit of an appetite. Significant desaturations with movement. No chest pain. Still short of breath with cough. Cardiac cath plans canceled. 10/13: Evaluated examined at bedside. Shortness of breath is a little bit worse and oxygenation has increased a little bit. Add on remdesivir today add doxycycline. 10/12: Evaluated and examined at bedside. Had just gotten back from bathroom a little SOB on increased O2 setting to sat back up but back up in 90's when seen. 10/11: Evaluate examined at bedside. Resting in bed. Understands this plan for procedure Thursday. Continuing COVID treatment. Plan discussed with bedside RN. 10/10: Patient evaluate examined at bedside. Was resting in bed really coughing. Informed of reason procedure pushed to Thursday with Covid positive. He understood well. Will start dexamethasone and Rocephin for Covid positivity. Rocephin cover any bacterial pneumonias. As needed cough medicine. If he starts require oxygen can start remdesivir then. Otherwise continue to follow. Up ad felicity. Vitals/I&O Vitals/I&O: Vital Signs Date Time Temp Pulse Resp B/P (MAP) Pulse Ox O2 Delivery O2 Flow Rate FiO2 10/18/21 07:38 98.0 77 153/70 (97) 96 Vapotherm 40L @ 100% 98.0 10/18/21 03:04 36 10/17/21 20:00 40.0 10/17/21 20:00 N/A I & O 10/17/21 10/17/21 10/18/21 15:00 23:00 07:00 Intake Total 0 ml Output Total 100 ml Balance -100 ml 0 ml Physical Exam General: Alert, Oriented X3, Cooperative, No acute distress Heart: Regular rate, Normal S1, Normal S2, No murmurs Lungs: Clear Abdomen: Soft, No tenderness, Other (truncakl obesity) Extremities: No cyanosis, No edema Skin: No breakdown, No significant lesion Labs Labs: Laboratory Tests Test 10/17/21 11:25 10/17/21 20:46 Glucose (Fingerstick) 192 mg/dL (70-99) 283 mg/dL (70-99) Assessment and Plan Assessmemt and Plan Problems Medical Problems: (1) Chest pain Status: Acute (2) Fever Status: Acute (3) Lab test positive for detection of COVID-19 virus Status: Acute Comment Review of Relevant I have reviewed the following items bo (where applicable) has been applied. Medications: Current Medications Medications (Trade) Dose Ordered Sig/Jodi Route PRN Reason Start Time Stop Time Status Last Admin Dose Admin Simethicone (Gas-X) 80 mg PRN AFTMEALHC PRN PO GAS / BLOATING 10/18/21 04:45 10/18/21 04:58 Justifications for Admission Other Justification Chest pain. NIKOLAI IQBAL MD Oct 18, 2021 10:44
--- NOTE | 2021-10-18 12:16 | PDOC ---
CHAITANYA LANZA BUSINESS TRANSFORMATION CONSULTANT 10/18/21 1216: CARDIO Progress Notes Date and Time Date of Service 10/18/2021 Time of Evaluation 1150 Subjective Subjective: No Chest Pain, No Palpitations, Other (bipap in place) Vitals Vitals Vital Signs Date Time Temp Pulse Resp B/P (MAP) Pulse Ox O2 Delivery O2 Flow Rate FiO2 10/18/21 11:41 94 BiPAP/CPAP 10/18/21 10:53 97.8 88 40 145/84 (104) 97.8 10/18/21 08:00 40.0 10/18/21 08:00 N/A Weight Weight [ ] Input and Output Intake and Output Intake and Output 10/18/21 07:00 Intake Total 0 ml Output Total 100 ml Balance -100 ml Intake Oral 0 ml Output Urine Total 100 ml # Voids 1 Laboratory Labs Laboratory Tests Test 10/17/21 20:46 10/18/21 11:08 10/18/21 11:27 Glucose (Fingerstick) 283 mg/dL (70-99) 234 mg/dL (70-99) Heparin Anti-Xa Act, Unfractionated < 0.10 IU/mL (0.30-0.70) Microbiology Micro Microbiology 10/09/21 Blood Culture - Final, Complete NO GROWTH AFTER 5 DAYS Physical Exam HEENT: Neck Supple W Full Motion Chest: Symmetric LUNGS: Other (diminished, on BiPAP/vapotherm) Heart: RRR (SR) Abdomen: Soft N/T, Other (obese) Extremities: No Calf Tenderness Neurology: alert, oriented, follow commands Assessment Assessment 1. Chest pain; AMI ruled out 2 Acute respiratory failure secondary to COVID PNA now on bipap/vapotherm 3. HTN: controlled 4. HLP 5. DM2 6. Strong family hx of CAD 7. Morbid obesity Recommendations Continue ASA, statin Ongoing pulmonary optimization, treatment of COVID PNA Supportive care for now and plan for cardiac cath once covid recovered Justicifation of Admission Dx: Justifications for Admission: Justification of Admission Dx: Yes KIYA PICKETT MD 10/18/211812: CARDIO Progress Notes Assessment Assessment Patient seen and examined. Agree with IDENTITY ACCESS MANAGEMENT ARCHITECT's assessment and plan. Continue current treatment for Covid pneumonia - needing BiPAP Telemetry did not show any significant arrhythmias Plan for cardiac catheterization to evaluate his unstable angina once Covid recovered CHAITANYA LANZA APRN Oct 18, 2021 12:16 KIYA PICKETT MD Oct 18, 2021 18:13
[2021-10-18 12:25] LABS: CALCIUM 7.7 mg/dL (8.5-10.1); CREATININE 0.8 mg/dL (0.7-1.3); POTASSIUM 4.7 mmol/L (3.5-5.1)
[2021-10-18 12:31] LABS: ALBUMIN 1.8 g/dL (3.4-5.0); ALBUMIN/GLOBULIN RATIO 0.4 (1.0-1.7); PHOSPHORUS 3.4 mg/dL (2.6-4.7); TOTAL BILIRUBIN 0.9 mg/dL (0.2-1.0); TOTAL PROTEIN 6.2 g/dL (6.4-8.2)
--- NOTE | 2021-10-18 12:43 | NUR ---
SS following up with discharge planning. SS reviewed pt chart and discussed with pt RN. Pt is currently on Vapotherm and BIPAP at 100%. COVID19 positive. Pt on IV Decadron and IV Doxycycline. Not stable. SS will continue to follow for discharge planning.
[2021-10-18] MEDS: TPN PER PHARMACY MC PRN (13:31)
--- NOTE | 2021-10-18 13:32 | NUR ---
Pharmacy TPN Dosing Note S: YE SARKAR is a 66 year old M Currently receiving Central Continuous TPN started 10/18/21 B:Pertinent PMH: poor PO intake Height: 5 feet, 6 inches Weight: 105.0 kg Current diet: cardiac LABS: Sodium: 131 Potassium: 4.7 Chloride: 97 Calcium: 7.7 Corrected Calcium: 9.46 Magnesium: 2 CO2: 25 SCr: 0.8 Glucose: 234 Albumin: 1.8 AST: 23 ALT: 22 TPN FORMULA: TPN TYPE: Central Continuous AMINO ACIDS: 60 gm DEXTROSE: 195 gm LIPIDS: 20 gm SODIUM CHLORIDE: 90 mEq POTASSIUM CHLORIDE: 20 mEq POTASSIUM PHOSPHATE: 13.6 mmol MAGNESIUM: 10 mEq MULTIPLE VITAMIN: 10 ml TRACE ELEMENTS: 1 ml(s) TPN PLAN: Standard macros - dosing lipids MWF d/t national shortage. Starting at lower KCl dose, omit Ca (corrected WNL and on national shortage). CMP,Mag,Phos and TG in AM. R: Begin TPN as noted above. Will monitor electrolytes, glucose, and tolerance to TPN. ERICA DUKE [facility], 10/18/21 7611
[2021-10-18] MEDS: DOXYCYCLINE HYCLATE 100 MG in IV DEXTROSE 5% 100ML 100 ML IV SCH ×2 (13:43→21:23)
[2021-10-18] MEDS: STERILE WATER for RESP 1,000 ML BAG. INH PRN (14:39)
[2021-10-18] MEDS ORDERED: ATROPINE 0.5 MG/5 ML DISP.SYRINGE. IV PRN (16:00)
[2021-10-18] MEDS ORDERED: IV NORMAL SALINE 500ML BAG 500 ML IV PRN (16:00)
[2021-10-18] MEDS: DEXMEDETOMIDINE 400 MCG in IV NORMAL SALINE 100ML 96 ML IV PRN ×2 (17:39→21:16)
[2021-10-18] MEDS: NOREPINEPHRINE VIAL 8 MG in IV DEXTROSE 5% 250 ML IV PRN (18:27)
[2021-10-18] MEDS: ATORVASTATIN CALCIUM 10 MG TABLET. PO SCH (20:59)
[2021-10-18] MEDS: ENOXAPARIN 40 MG/0.4 ML SYRINGE. SQ SCH (21:23)
[2021-10-18] MEDS: guaiFENesin/CODEINE 100mg/10mg 5 ML LIQUID PO PRN (21:45)
[2021-10-18] MEDS: diphenhydrAMINE HCL 25 MG CAPSULE PO PRN (21:45)
[2021-10-18] MEDS ORDERED: [UNRECOGNIZED DRUG - OTHER] IV SCH (22:00)
[2021-10-18] MEDS ORDERED: TOTAL PARENTERAL NUTRITION IV SCH (22:00)
[2021-10-18] MEDS ORDERED: DEXTROSE 70% IV SCH (22:00)
[2021-10-18] MEDS ORDERED: AMINO ACID IV SCH (22:00)
[2021-10-18] MEDS: MORPHINE SULFATE 2 MG/ML INJ. IV PRN (22:55)
[2021-10-19] VITALS (29 sets, daily range): BP systolic 76–161; BP diastolic 44–81
[2021-10-19] MEDS: MORPHINE SULFATE 2 MG/ML INJ. IV PRN ×4 (00:46→15:39)
[2021-10-19] MEDS: INSULIN LISPRO 300 UNITS/3 ML VIAL. SQ SCH ×4 (01:01→17:28)
[2021-10-19] MEDS: guaiFENesin/CODEINE 100mg/10mg 5 ML LIQUID PO PRN (01:30)
--- NOTE | 2021-10-19 01:45 | NUR ---
Patient continues to be anxious. "I just am anxious, I've never been in the hospital." Robitussin w/ codeine given to provide some comfort. Patient immediately threw up. Compazine and Morphine given IVP.
[2021-10-19] MEDS: DEXMEDETOMIDINE 400 MCG in IV NORMAL SALINE 100ML 96 ML IV PRN ×5 (02:18→23:45)
[2021-10-19 03:24] LABS: BASE EXCESS ABG 4 mmol/L (-3-3); HCO3 ABG 26 mmol/L (21-28); PCO2 ABG 32 mmHg (35-46); PO2 ABG 54 mmHg (65-108); SAT O2 ABG 89 % (92-99)
[2021-10-19 03:26] LABS: FIO2 ABG 100 (vapobipap)
--- NOTE | 2021-10-19 03:29 | NUR ---
JULEE Verdugo ordered stat ABGs. pO2 54.2 Patient much more relaxed and SpO2 92%. JULEE Carey and JULEE Verdugo aware of results.
[2021-10-19 07:02] LABS: ALBUMIN 1.6 g/dL (3.4-5.0); ALBUMIN/GLOBULIN RATIO 0.4 (1.0-1.7); CALCIUM 7.1 mg/dL (8.5-10.1); PHOSPHORUS 3.8 mg/dL (2.6-4.7); POTASSIUM 4.7 mmol/L (3.5-5.1); TOTAL BILIRUBIN 0.6 mg/dL (0.2-1.0); TOTAL PROTEIN 5.5 g/dL (6.4-8.2)
[2021-10-19] MEDS: LISINOPRIL 20 MG TABLET PO SCH (07:19)
[2021-10-19] MEDS: LACTOBACILLUS RHAMNOSUS GG 1 CAPSULE. PO SCH ×2 (07:19→20:02)
[2021-10-19] MEDS: ASPIRIN ENTERIC COATED 81 MG TABLET.DR. PO SCH (07:19)
--- NOTE | 2021-10-19 07:24 | PDOC ---
PULMONARY PROGRESS NOTES DATE: 10/19/21 TIME: 07:22 Subjective Patient transferred to the intensive care unit Currently on Vapotherm and BiPAP 100% FiO2 Requiring norepinephrine for hypotension Vitals Vital Signs Date Time Temp Pulse Resp B/P (MAP) Pulse Ox O2 Delivery O2 Flow Rate FiO2 10/19/21 07:00 56 32 126/67 94 BiPAP/CPAP 10/19/21 02:25 40.0 10/18/21 19:00 97.2 97.2 10/18/21 08:00 N/A General: Alert Lungs: Clear Abdomen: Soft, Non-tender Neuro Exam: Alert Extremities: No Edema Skin: Warm, No Rashes Labs Laboratory Tests Test 10/17/21 08:02 10/17/21 11:25 10/17/21 20:46 10/18/21 11:08 Glucose (Fingerstick) 151 mg/dL (70-99) 192 mg/dL (70-99) 283 mg/dL (70-99) Heparin Anti-Xa Act, Unfractionated < 0.10 IU/mL (0.30-0.70) Test 10/18/21 11:27 10/18/21 11:46 10/18/21 18:00 10/19/21 00:56 Glucose (Fingerstick) 234 mg/dL (70-99) 295 mg/dL (70-99) 337 mg/dL (70-99) Sodium Level 131 mmol/L (136-145) Potassium Level 4.7 mmol/L (3.5-5.1) Chloride Level 97 mmol/L (98-107) Carbon Dioxide Level 25 mmol/L (21-32) Anion Gap 9 (6-14) Blood Urea Nitrogen 32 mg/dL (8-26) Creatinine 0.8 mg/dL (0.7-1.3) Estimated GFR (Cockcroft-Gault) 97.0 BUN/Creatinine Ratio 40 (6-20) Glucose Level 234 mg/dL (70-99) Calcium Level 7.7 mg/dL (8.5-10.1) Phosphorus Level 3.4 mg/dL (2.6-4.7) Magnesium Level 2.0 mg/dL (1.8-2.4) Total Bilirubin 0.9 mg/dL (0.2-1.0) Aspartate Amino Transf (AST/SGOT) 23 U/L (15-37) Alanine Aminotransferase (ALT/SGPT) 22 U/L (16-63) Alkaline Phosphatase 99 U/L (46-116) Total Protein 6.2 g/dL (6.4-8.2) Albumin 1.8 g/dL (3.4-5.0) Albumin/Globulin Ratio 0.4 (1.0-1.7) Test 10/19/21 02:45 10/19/21 06:31 10/19/21 06:35 O2 Saturation 89 % (92-99) Arterial Blood pH 7.53 (7.35-7.45) Arterial Blood pCO2 at Patient Temp 32 mmHg (35-46) Arterial Blood pO2 at Patient Temp 54 mmHg (65-108) Arterial Blood HCO3 26 mmol/L (21-28) Arterial Blood Base Excess 4 mmol/L (-3-3) FiO2 100 (vapobipap) Glucose (Fingerstick) 354 mg/dL (70-99) Sodium Level 131 mmol/L (136-145) Potassium Level 4.7 mmol/L (3.5-5.1) Chloride Level 100 mmol/L (98-107) Carbon Dioxide Level 25 mmol/L (21-32) Anion Gap 6 (6-14) Blood Urea Nitrogen 43 mg/dL (8-26) Creatinine 1.0 mg/dL (0.7-1.3) Estimated GFR (Cockcroft-Gault) 75.0 BUN/Creatinine Ratio 43 (6-20) Glucose Level 375 mg/dL (70-99) Calcium Level 7.1 mg/dL (8.5-10.1) Phosphorus Level 3.8 mg/dL (2.6-4.7) Magnesium Level 2.0 mg/dL (1.8-2.4) Total Bilirubin 0.6 mg/dL (0.2-1.0) Aspartate Amino Transf (AST/SGOT) 11 U/L (15-37) Alanine Aminotransferase (ALT/SGPT) 12 U/L (16-63) Alkaline Phosphatase 82 U/L (46-116) Total Protein 5.5 g/dL (6.4-8.2) Albumin 1.6 g/dL (3.4-5.0) Albumin/Globulin Ratio 0.4 (1.0-1.7) Triglycerides Level 52 mg/dL (0-150) Laboratory Tests Test 10/18/21 11:08 10/18/21 11:27 10/18/21 11:46 10/18/21 18:00 Heparin Anti-Xa Act, Unfractionated < 0.10 IU/mL (0.30-0.70) Glucose (Fingerstick) 234 mg/dL (70-99) 295 mg/dL (70-99) Sodium Level 131 mmol/L (136-145) Potassium Level 4.7 mmol/L (3.5-5.1) Chloride Level 97 mmol/L (98-107) Carbon Dioxide Level 25 mmol/L (21-32) Anion Gap 9 (6-14) Blood Urea Nitrogen 32 mg/dL (8-26) Creatinine 0.8 mg/dL (0.7-1.3) Estimated GFR (Cockcroft-Gault) 97.0 BUN/Creatinine Ratio 40 (6-20) Glucose Level 234 mg/dL (70-99) Calcium Level 7.7 mg/dL (8.5-10.1) Phosphorus Level 3.4 mg/dL (2.6-4.7) Magnesium Level 2.0 mg/dL (1.8-2.4) Total Bilirubin 0.9 mg/dL (0.2-1.0) Aspartate Amino Transf (AST/SGOT) 23 U/L (15-37) Alanine Aminotransferase (ALT/SGPT) 22 U/L (16-63) Alkaline Phosphatase 99 U/L (46-116) Total Protein 6.2 g/dL (6.4-8.2) Albumin 1.8 g/dL (3.4-5.0) Albumin/Globulin Ratio 0.4 (1.0-1.7) Test 10/19/21 00:56 10/19/21 02:45 10/19/21 06:31 10/19/21 06:35 Glucose (Fingerstick) 337 mg/dL (70-99) 354 mg/dL (70-99) O2 Saturation 89 % (92-99) Arterial Blood pH 7.53 (7.35-7.45) Arterial Blood pCO2 at Patient Temp 32 mmHg (35-46) Arterial Blood pO2 at Patient Temp 54 mmHg (65-108) Arterial Blood HCO3 26 mmol/L (21-28) Arterial Blood Base Excess 4 mmol/L (-3-3) FiO2 100 (vapobipap) Sodium Level 131 mmol/L (136-145) Potassium Level 4.7 mmol/L (3.5-5.1) Chloride Level 100 mmol/L (98-107) Carbon Dioxide Level 25 mmol/L (21-32) Anion Gap 6 (6-14) Blood Urea Nitrogen 43 mg/dL (8-26) Creatinine 1.0 mg/dL (0.7-1.3) Estimated GFR (Cockcroft-Gault) 75.0 BUN/Creatinine Ratio 43 (6-20) Glucose Level 375 mg/dL (70-99) Calcium Level 7.1 mg/dL (8.5-10.1) Phosphorus Level 3.8 mg/dL (2.6-4.7) Magnesium Level 2.0 mg/dL (1.8-2.4) Total Bilirubin 0.6 mg/dL (0.2-1.0) Aspartate Amino Transf (AST/SGOT) 11 U/L (15-37) Alanine Aminotransferase (ALT/SGPT) 12 U/L (16-63) Alkaline Phosphatase 82 U/L (46-116) Total Protein 5.5 g/dL (6.4-8.2) Albumin 1.6 g/dL (3.4-5.0) Albumin/Globulin Ratio 0.4 (1.0-1.7) Triglycerides Level 52 mg/dL (0-150) Medications Active Scripts Medications Dose Route/Sig Max Daily Dose Days Date Category Lipitor (Atorvastatin Calcium) 10 Mg Tablet 1 Tab PO QHS 10/10/21 Reported Lisinopril 20 Mg Tablet 1 Tab PO DAILY 08/11/14 Reported Metformin Hcl 500 Mg Tablet 1 Tab PO BID 08/11/14 Reported Impression . IMPRESSION: 1. Acute hypoxemic respiratory failure. 2. COVID-19 viral pneumonia/acute respiratory distress syndrome. 3. Possible bacterial pneumonia. 4. Chest pain, unstable angina, AMI ruled out 5. Hypertension. 6. Hyperlipidemia. 7. Type 2 diabetes. 7. Septic shock Plan . Updated 10/19 Transfer to the intensive care unit Continue Vapotherm and BiPAP Complete course of dexamethasone On IV doxycycline, add Rocephin patient is s/p remdesivir Patient remains critically ill Prognosis is dismal Patient full code CC 3 0 minutes DELFIN FRANCO MD Oct 19, 2021 07:24
[2021-10-19] MEDS: DEXAMETHASONE SOD PHOS 4 MG/ML VIAL IVP SCH (07:38)
[2021-10-19] MEDS: cefTRIAXone IV Push 1 GM VIAL. IVP SCH (07:38)
[2021-10-19] MEDS: DOXYCYCLINE HYCLATE 100 MG in IV DEXTROSE 5% 100ML 100 ML IV SCH ×2 (07:39→20:33)
[2021-10-19] MEDS: TPN PER PHARMACY MC PRN (07:48)
--- NOTE | 2021-10-19 07:49 | NUR ---
Pharmacy TPN Dosing Note S: EY SARKAR is a 66 year old M Currently receiving Central Continuous TPN started 10/18/21 B:Pertinent PMH: poor PO intake Height: 5 feet, 6 inches Weight: 100.1 kg Current diet: cardiac LABS: Sodium: 131 Potassium: 4.7 Chloride: 100 Calcium: 7.1 Corrected Calcium: 9.02 Magnesium: 2 CO2: 25 SCr: 1 Glucose: 337-375 Albumin: 1.6 AST: 11 ALT: 12 TPN FORMULA: TPN TYPE: Central Continuous AMINO ACIDS: 60 gm DEXTROSE: 195 gm SODIUM CHLORIDE: 90 mEq POTASSIUM CHLORIDE: 20 mEq POTASSIUM PHOSPHATE: 13.6 mmol MAGNESIUM: 10 mEq MULTIPLE VITAMIN: 10 ml TRACE ELEMENTS: 1 ml(s) TPN PLAN: Remove lipids- dosing MWF d/t national shortage. Electrolytes stable, cont rest same. -BMP, Mag, Phos in AM. R: Change TPN as noted above. Will monitor electrolytes, glucose, and tolerance to TPN. ERICA DUKE [facility], 10/19/21 0722
[2021-10-19] MEDS ORDERED: INSULIN LISPRO 300 UNITS/3 ML VIAL. SQ ONE ×2 (10:15→15:15)
[2021-10-19] MEDS: STERILE WATER for RESP 1,000 ML BAG. INH PRN ×2 (10:32→21:07)
[2021-10-19] MEDS ORDERED: INSULIN GLARGINE SYRINGE. SQ SCH (11:00)
--- NOTE | 2021-10-19 15:05 | PDOC ---
[employer] PROGRESS NOTE Date of Service DOS: DATE: 10/19/21 TIME: 15:04 Chief Complaint Chief Complaint Atypical chest pain, rule out ACS Acute electrolyte derangementhyponatremia, hypochloremia suggestive of volume depletion COVID-19 infection Hyperglycemia Thrombocytopenia History of type 2 diabetes mellitus History of hypertension History of dyslipidemia COVID -19 pneumonia, ARDS, acute hypoxic respiratory faluer, worsening obese, BMI 36 History of Present Illness History of Present Illness 10/19, to ICU overnight, vapotherm and bipap 100% to maintain calm, diong OK, PULM and CV following 10/18: Requiring nearly continuous BiPAP with supplemental Vapotherm 40 L/min percent FiO2 little drowsy today weak. Discussed with his . He is consentable to further interventions such as intubation Regonol is maintaining O2 saturations 92%. 10/17: Further to desaturations as supplemental BiPAP in addition to Vapotherm 40 L/min 100% FiO2. He is able to converse. He does not want to be intubated if he would have a prolonged stay on the ventilator and is asked if his can be updated. NA 130. Not eating. PICC line for TPN 10/16: Seen bedside on her percent FiO2 Vapotherm 40 L/min with supplemental facemask O2. Chest radiograph with poor inspiratory effort. Is still gets relatively significant desaturations. Counseled on incentive spirometer and severity of his disease. Sodium is 131 today he says he is eating 10/15: ABG 7.5 01/09/63 on 100% FiO2 Vapotherm 40 L/min with supplemental facemask O2. Seen bedside. Complains of rhinitis and try to get up to use urinal and desats into the low 80s with this. Counseled maintain his Vapotherm. Complains of pain behind his ear 10/14: Seen bedside. On 40 L/min 100% FiO2 with supplemental facemask. Has a little bit of an appetite. Significant desaturations with movement. No chest pain. Still short of breath with cough. Cardiac cath plans canceled. 10/13: Evaluated examined at bedside. Shortness of breath is a little bit worse and oxygenation has increased a little bit. Add on remdesivir today add doxycycline. 10/12: Evaluated and examined at bedside. Had just gotten back from bathroom a little SOB on increased O2 setting to sat back up but back up in 90's when seen. 10/11: Evaluate examined at bedside. Resting in bed. Understands this plan for procedure Thursday. Continuing COVID treatment. Plan discussed with bedside RN. 10/10: Patient evaluate examined at bedside. Was resting in bed really coughing. Informed of reason procedure pushed to Thursday with Covid positive. He u nderstood well. Will start dexamethasone and Rocephin for Covid positivity. Rocephin cover any bacterial pneumonias. As needed cough medicine. If he starts require oxygen can start remdesivir then. Otherwise continue to follow. Up ad felicity. Vitals/I&O Vitals/I&O: Vital Signs Date Time Temp Pulse Resp B/P (MAP) Pulse Ox O2 Delivery O2 Flow Rate FiO2 10/19/21 14:02 95 BiPAP/CPAP 10/19/21 14:00 55 30 99/62 10/19/21 12:00 97.7 97.7 10/19/21 08:00 40.0 10/18/21 08:00 N/A I & O 10/18/21 10/18/21 10/19/21 15:00 23:00 07:00 Intake Total 240 ml 755 ml Output Total 30 ml 430 ml Balance 210 ml 325 ml Physical Exam General: Alert, Oriented X3, Cooperative, No acute distress Heart: Regular rate, Normal S1, Normal S2, No murmurs Lungs: Clear Abdomen: Soft, No tenderness, Other (truncakl obesity) Extremities: No cyanosis, No edema Skin: No breakdown, No significant lesion Labs Labs: Laboratory Tests Test 10/18/21 18:00 10/19/21 00:56 10/19/21 02:45 10/19/21 06:31 Glucose (Fingerstick) 295 mg/dL (70-99) 337 mg/dL (70-99) 354 mg/dL (70-99) O2 Saturation 89 % (92-99) Arterial Blood pH 7.53 (7.35-7.45) Arterial Blood pCO2 at Patient Temp 32 mmHg (35-46) Arterial Blood pO2 at Patient Temp 54 mmHg (65-108) Arterial Blood HCO3 26 mmol/L (21-28) Arterial Blood Base Excess 4 mmol/L (-3-3) FiO2 100 (vapobipap) Test 10/19/21 06:35 10/19/21 11:19 Sodium Level 131 mmol/L (136-145) Potassium Level 4.7 mmol/L (3.5-5.1) Chloride Level 100 mmol/L (98-107) Carbon Dioxide Level 25 mmol/L (21-32) Anion Gap 6 (6-14) Blood Urea Nitrogen 43 mg/dL (8-26) Creatinine 1.0 mg/dL (0.7-1.3) Estimated GFR (Cockcroft-Gault) 75.0 BUN/Creatinine Ratio 43 (6-20) Glucose Level 375 mg/dL (70-99) Calcium Level 7.1 mg/dL (8.5-10.1) Phosphorus Level 3.8 mg/dL (2.6-4.7) Magnesium Level 2.0 mg/dL (1.8-2.4) Total Bilirubin 0.6 mg/dL (0.2-1.0) Aspartate Amino Transf (AST/SGOT) 11 U/L (15-37) Alanine Aminotransferase (ALT/SGPT) 12 U/L (16-63) Alkaline Phosphatase 82 U/L (46-116) Total Protein 5.5 g/dL (6.4-8.2) Albumin 1.6 g/dL (3.4-5.0) Albumin/Globulin Ratio 0.4 (1.0-1.7) Triglycerides Level 52 mg/dL (0-150) Glucose (Fingerstick) 384 mg/dL (70-99) Assessment and Plan Assessmemt and Plan Problems Medical Problems: (1) Chest pain Status: Acute (2) Fever Status: Acute (3) Lab test positive for detection of COVID-19 virus Status: Acute Comment Review of Relevant I have reviewed the following items bo (where applicable) has been applied. Medications: Current Medications Medications (Trade) Dose Ordered Sig/Jodi Route PRN Reason Start Time Stop Time Status Last Admin Dose Admin Sodium Chloride 90 meq/Potassium Chloride 20 meq/ Potassium Phosphate 13.6 mmol/Magnesium Sulfate 10 meq/ Multivitamins 10 ml/Zinc/Copper/ Manganese/ Selenium 1 ml/ Total Parenteral Nutrition/Amino Acids/Dextrose/ Fat Emulsion Intravenous 1,512 ml @ 63 mls/hr TPN CONT IV 10/18/21 22:00 10/19/21 21:59 10/18/21 21:31 Dexmedetomidine HCl 400 mcg/ Sodium Chloride 100 ml @ 5.25 mls/hr CONT PRN IV PER PROTOCOL 10/18/21 16:00 10/19/21 14:57 Insulin Human Lispro (HumaLOG) 0-9 UNITS Q6HRS SQ 10/18/21 18:00 10/19/21 11:22 Norepinephrine Bitartrate 8 mg/ Dextrose 258 ml @ 20.318 mls/ hr CONT PRN IV PER PROTOCOL 10/18/21 18:30 10/18/21 18:27 Ceftriaxone Sodium (Rocephin) 1 gm Q24H IVP 10/19/21 09:00 10/28/21 08:59 10/19/21 07:38 Insulin Glargine (Lantus Syringe) 25 unit DAILY SQ 10/19/21 11:00 10/19/21 11:21 Insulin Human Lispro (HumaLOG) 20 units 1X ONCE SQ 10/19/21 10:15 10/19/21 10:16 DC 10/19/21 11:21 Justifications for Admission Other Justification Chest pain. LELIA LOPEZ MD Oct 19, 2021 15:05
--- NOTE | 2021-10-19 15:27 | PDOC ---
PROGRESS NOTES Date of Service DATE: 10/19/21 TIME: 15:25 Subjective Subjective Patient seen and evaluated. Objective Objective Vital Signs Date Time Temp Pulse Resp B/P (MAP) Pulse Ox O2 Delivery O2 Flow Rate FiO2 10/19/21 15:00 55 34 92/64 95 BiPAP/CPAP 10/19/21 12:00 97.7 97.7 10/19/21 08:00 40.0 10/18/21 08:00 N/A Intake and Output 10/19/21 07:00 Intake Total 995 ml Output Total 460 ml Balance 535 ml Intake Oral 330 ml Blood Product IV Normal Saline Flush 665 ml Output Urine Total 430 ml Stool Total 0 ml Emesis 30 ml Physical Exam Physical Exam Visual examination secondary to COVID. Assessment Assessment Problems Medical Problems: (1) Chest pain Status: Acute (2) Fever Status: Acute (3) Lab test positive for detection of COVID-19 virus Status: Acute Chest pain; AMI ruled out. Continue aspirin and medical treatment. Possible future cardiac catheterization. Acute respiratory failure secondary to COVID PNA now on bipap/vapotherm. Transferred to the ICU for closer monitoring and care. HTN: controlled HLP. Statin DM2 Morbid obesity Comment Review of Relevant I have reviewed the following items bo (where applicable) has been applied. Labs Laboratory Tests Test 10/17/21 20:46 10/18/21 11:08 10/18/21 11:27 10/18/21 11:46 Glucose (Fingerstick) 283 mg/dL (70-99) 234 mg/dL (70-99) Heparin Anti-Xa Act, Unfractionated < 0.10 IU/mL (0.30-0.70) Sodium Level 131 mmol/L (136-145) Potassium Level 4.7 mmol/L (3.5-5.1) Chloride Level 97 mmol/L (98-107) Carbon Dioxide Level 25 mmol/L (21-32) Anion Gap 9 (6-14) Blood Urea Nitrogen 32 mg/dL (8-26) Creatinine 0.8 mg/dL (0.7-1.3) Estimated GFR (Cockcroft-Gault) 97.0 BUN/Creatinine Ratio 40 (6-20) Glucose Level 234 mg/dL (70-99) Calcium Level 7.7 mg/dL (8.5-10.1) Phosphorus Level 3.4 mg/dL (2.6-4.7) Magnesium Level 2.0 mg/dL (1.8-2.4) Total Bilirubin 0.9 mg/dL (0.2-1.0) Aspartate Amino Transf (AST/SGOT) 23 U/L (15-37) Alanine Aminotransferase (ALT/SGPT) 22 U/L (16-63) Alkaline Phosphatase 99 U/L (46-116) Total Protein 6.2 g/dL (6.4-8.2) Albumin 1.8 g/dL (3.4-5.0) Albumin/Globulin Ratio 0.4 (1.0-1.7) Test 10/18/21 18:00 10/19/21 00:56 10/19/21 02:45 10/19/21 06:31 Glucose (Fingerstick) 295 mg/dL (70-99) 337 mg/dL (70-99) 354 mg/dL (70-99) O2 Saturation 89 % (92-99) Arterial Blood pH 7.53 (7.35-7.45) Arterial Blood pCO2 at Patient Temp 32 mmHg (35-46) Arterial Blood pO2 at Patient Temp 54 mmHg (65-108) Arterial Blood HCO3 26 mmol/L (21-28) Arterial Blood Base Excess 4 mmol/L (-3-3) FiO2 100 (vapobipap) Test 10/19/21 06:35 10/19/21 11:19 Sodium Level 131 mmol/L (136-145) Potassium Level 4.7 mmol/L (3.5-5.1) Chloride Level 100 mmol/L (98-107) Carbon Dioxide Level 25 mmol/L (21-32) Anion Gap 6 (6-14) Blood Urea Nitrogen 43 mg/dL (8-26) Creatinine 1.0 mg/dL (0.7-1.3) Estimated GFR (Cockcroft-Gault) 75.0 BUN/Creatinine Ratio 43 (6-20) Glucose Level 375 mg/dL (70-99) Calcium Level 7.1 mg/dL (8.5-10.1) Phosphorus Level 3.8 mg/dL (2.6-4.7) Magnesium Level 2.0 mg/dL (1.8-2.4) Total Bilirubin 0.6 mg/dL (0.2-1.0) Aspartate Amino Transf (AST/SGOT) 11 U/L (15-37) Alanine Aminotransferase (ALT/SGPT) 12 U/L (16-63) Alkaline Phosphatase 82 U/L (46-116) Total Protein 5.5 g/dL (6.4-8.2) Albumin 1.6 g/dL (3.4-5.0) Albumin/Globulin Ratio 0.4 (1.0-1.7) Triglycerides Level 52 mg/dL (0-150) Glucose (Fingerstick) 384 mg/dL (70-99) Laboratory Tests Test 10/18/21 18:00 10/19/21 00:56 10/19/21 02:45 10/19/21 06:31 Glucose (Fingerstick) 295 mg/dL (70-99) 337 mg/dL (70-99) 354 mg/dL (70-99) O2 Saturation 89 % (92-99) Arterial Blood pH 7.53 (7.35-7.45) Arterial Blood pCO2 at Patient Temp 32 mmHg (35-46) Arterial Blood pO2 at Patient Temp 54 mmHg (65-108) Arterial Blood HCO3 26 mmol/L (21-28) Arterial Blood Base Excess 4 mmol/L (-3-3) FiO2 100 (vapobipap) Test 10/19/21 06:35 10/19/21 11:19 Sodium Level 131 mmol/L (136-145) Potassium Level 4.7 mmol/L (3.5-5.1) Chloride Level 100 mmol/L (98-107) Carbon Dioxide Level 25 mmol/L (21-32) Anion Gap 6 (6-14) Blood Urea Nitrogen 43 mg/dL (8-26) Creatinine 1.0 mg/dL (0.7-1.3) Estimated GFR (Cockcroft-Gault) 75.0 BUN/Creatinine Ratio 43 (6-20) Glucose Level 375 mg/dL (70-99) Calcium Level 7.1 mg/dL (8.5-10.1) Phosphorus Level 3.8 mg/dL (2.6-4.7) Magnesium Level 2.0 mg/dL (1.8-2.4) Total Bilirubin 0.6 mg/dL (0.2-1.0) Aspartate Amino Transf (AST/SGOT) 11 U/L (15-37) Alanine Aminotransferase (ALT/SGPT) 12 U/L (16-63) Alkaline Phosphatase 82 U/L (46-116) Total Protein 5.5 g/dL (6.4-8.2) Albumin 1.6 g/dL (3.4-5.0) Albumin/Globulin Ratio 0.4 (1.0-1.7) Triglycerides Level 52 mg/dL (0-150) Glucose (Fingerstick) 384 mg/dL (70-99) Microbiology 10/09/21 Blood Culture - Final, Complete NO GROWTH AFTER 5 DAYS Medications Current Medications Aspirin (Aj Aspirin) 325 mg 1X ONCE PO Last administered on 10/09/21at 17:57; Start 10/09/21 at 17:30; Stop 10/09/21 at 17:31; Status DC Nitroglycerin (Nitrostat) 0.4 mg PRN Q5MIN PRN SL CP RATING > 1/10; Start 10/09/21 at 17:30; Stop 10/10/21 at 17:29; Status DC Morphine Sulfate (Morphine Sulfate) 4 mg PRN Q15MIN PRN IV/SQ PAIN GREATER THAN 3/10; Start 10/09/21 at 17:30; Stop 10/09/21 at 23:00; Status DC Ondansetron HCl (Zofran) 4 mg PRN Q8HRS PRN IVP NAUSEA/VOMITING; Start 10/09/21 at 20:00; Stop 10/09/21 at 21:24; Status DC Morphine Sulfate (Morphine Sulfate) 4 mg PRN Q2HR PRN IVP PAIN; Start 10/09/21 at 20:00; Stop 10/09/21 at 21:23; Status DC Acetaminophen (Tylenol) 650 mg PRN Q4HRS PRN PO FEVER > 100.3'F; Start 10/09/21 at 20:00; Stop 10/09/21 at 21:22; Status DC Nitroglycerin (Nitrostat) 0.4 mg PRN Q5MIN PRN SL CHEST PAIN; Start 10/09/21 at 20:00; Stop 10/10/21 at 19:59; Status UNV Acetaminophen (Tylenol) 1,000 mg 1X ONCE PO Last administered on 10/09/21at 21:03; Start 10/09/21 at 20:00; Stop 10/09/21 at 20:01; Status DC Sodium Chloride 1,000 ml @ 75 mls/hr 1X ONCE IV Last administered on 10/09/21at 21:04; Start 10/09/21 at 20:00; Stop 10/10/21 at 09:19; Status DC Famotidine (Pepcid Vial) 20 mg 1X ONCE IVP Last administered on 10/09/21at 21:04; Start 10/09/21 at 20:30; Stop 10/09/21 at 20:31; Status DC Sennosides (Senna) 17.2 mg PRN BID PRN PO CONSTIPATION; Start 10/09/21 at 21:15 Docusate Sodium (Colace) 100 mg PRN DAILY PRN PO HARD STOOLS Last administered on 10/17/21at 20:23; Start 10/09/21 at 21:15 Ondansetron HCl (Zofran) 4 mg PRN Q6HRS PRN IVP NAUSEA/VOMITING, 1st CHOICE Last administered on 10/16/21at 02:38; Start 10/09/21 at 21:15 Aspirin (Aj Aspirin) 325 mg DAILYWBKFT PO Last administered on 10/10/21at 09:07; Start 10/10/21 at 08:00; Stop 10/10/21 at 10:44; Status DC Insulin Human Lispro (HumaLOG) 0-9 UNITS TIDWMEALS SQ Last administered on 10/18/21at 12:05; Start 10/10/21 at 08:00; Stop 10/18/21 at 16:45; Status DC Dextrose (Dextrose 50%-Water Syringe) 12.5 gm PRN Q15MIN PRN IV SEE COMMENTS; Start 10/09/21 at 21:15 Sodium Chloride 1,000 ml @ 100 mls/hr Q10H IV Last administered on 10/11/21at 05:11; Start 10/10/21 at 10:00; Stop 10/11/21 at 12:02; Status DC Acetaminophen (Tylenol) 650 mg PRN Q4HRS PRN PO TEMP OVER 100.4F OR MILD PAIN Last administered on 10/14/21at 21:38; Start 10/09/21 at 21:15 Lorazepam (Ativan) 0.5 mg PRN Q6HRS PRN PO ANXIETY / AGITATION Last administered on 10/17/21 09:24; Start 10/09/21 at 21:15 Lorazepam (Ativan Inj) 0.25 mg PRN Q4HRS PRN IV ANXIETY / AGITATION Last administered on 10/19/21 12:39; Start 10/09/21 at 21:15 Enoxaparin Sodium (Lovenox 40mg Syringe) 40 mg Q24H SQ Last administered on 10/18/21 21:23; Start 10/09/21 at 21:00 Morphine Sulfate (Morphine Sulfate) 1 mg PRN Q1HR PRN IV PAIN Last administered on 10/19/21 12:39; Start 10/09/21 at 21:15 Morphine Sulfate (Morphine Sulfate) 2 mg PRN Q2HR PRN IVP SEVERE PAIN 7-10; Start 10/09/21 at 21:15; Stop 10/10/21 at 21:14; Status DC Prochlorperazine Edisylate (Compazine) 10 mg PRN Q6HRS PRN IV NAUSEA/VOMITING, 2nd CHOICE Last administered on 10/19/21 01:53; Start 10/09/21 at 21:15 Diphenhydramine HCl (Benadryl) 25 mg PRN Q6HRS PRN IVP ITCHING; Start 10/09/21 at 21:15 Diphenhydramine HCl (Benadryl) 25 mg PRN Q6HRS PRN PO ITCHING; Start 10/09/21 at 21:15 Diphenhydramine HCl (Benadryl) 25 mg PRN QHS PRN PO INSOMNIA, 1st CHOICE Last administered on 10/18/21 21:45; Start 10/09/21 at 21:15 Zolpidem Tartrate (Ambien) 2.5 mg PRN QHS PRN PO INSOMNIA, 2nd CHOICE Last administered on 10/13/21 21:54; Start 10/09/21 at 21:15 Atorvastatin Calcium (Lipitor) 10 mg QHS PO Last administered on 10/17/21 20:23; Start 10/10/21 at 21:00 Lisinopril (Prinivil) 20 mg DAILY PO Last administered on 10/17/21 09:00; Start 10/10/21 at 10:00 Metformin HCl (Glucophage) 500 mg BIDWMEALS PO Last administered on 10/16/21 16:30; Start 10/10/21 at 10:00; Stop 10/19/21 at 10:48; Status DC Dexamethasone Sodium Phosphate (Decadron) 6 mg DAILY IVP Last administered on 10/19/21 07:38; Start 10/10/21 at 10:00; Stop 10/19/21 at 09:01; Status DC Ceftriaxone Sodium (Rocephin) 1 gm Q24H IVP Last administered on 10/16/21 07:59; Start 10/10/21 at 10:00; Stop 10/16/21 at 10:01; Status DC Aspirin (Ecotrin) 81 mg DAILYWBKFT PO Last administered on 10/17/21 09:24; Start 10/11/21 at 08:00 Guaifenesin/ Codeine Phosphate (Robitussin Ac) 5 ml PRN Q6HRS PRN PO COUGH Last administered on 10/19/21 01:30; Start 10/10/21 at 12:30 Magnesium Sulfate 50 ml @ 25 mls/hr 1X ONCE IV Last administered on 10/11/21at 08:45; Start 10/11/21 at 08:00; Stop 10/11/21 at 09:59; Status DC Lactobacillus Rhamnosus (Culturelle) 1 cap BID PO Last administered on 10/17/21 20:23; Start 10/12/21 at 21:00 Doxycycline Hyclate (Vibra-Tab) 100 mg BID PO Last administered on 10/17/21 20:23; Start 10/13/21 at 13:30; Stop 10/18/21 at 12:12; Status DC Remdesivir 200 mg/ Sodium Chloride 210 ml @ 210 mls/hr 1X ONCE IV Last administered on 10/13/21at 15:12; Start 10/13/21 at 15:00; Stop 10/13/21 at 15:59; Status DC Remdesivir 100 mg/ Sodium Chloride 230 ml @ 460 mls/hr Q24H IV Last administered on 10/17/21 15:42; Start 10/14/21 at 14:00; Stop 10/17/21 at 14:29; Status DC Sterile Water (WATER for RESP) 1,000 ml CONT PRN INH VIA VAPOTHERM DEVICE Last administered on 10/19/21at 10:32; Start 10/14/21 at 04:15 Zinc Oxide (Zinc Oxide 20% Topical) 1 mj PRN Q4HRS PRN TP SKIN PROTECTION Last administered on 10/15/21at 11:52; Start 10/15/21 at 11:15 Simethicone (Gas-X) 80 mg PRN AFTMEALHC PRN PO GAS / BLOATING Last administered on 10/18/21 22:54; Start 10/18/21 at 04:45 Info (Tpn Per Pharmacy) 1 each PRN DAILY PRN MC SEE COMMENTS Last administered on 10/19/21 07:48; Start 10/18/21 at 10:45 Dextrose/Lactated Ringer's 1,000 ml @ 75 mls/hr 1X ONCE IV Last administered on 10/18/21 13:43; Start 10/18/21 at 10:45; Stop 10/19/21 at 00:04; Status DC Doxycycline Hyclate 100 mg/ Dextrose 100 ml @ 50 mls/hr Q12HR IV Last administered on 10/19/21at 07:39; Start 10/18/21 at 13:00 Sodium Chloride 90 meq/Potassium Chloride 20 meq/ Potassium Phosphate 13.6 mmol/Magnesium Sulfate 10 meq/ Multivitamins 10 ml/Zinc/Copper/ Manganese/ Selenium 1 ml/ Total Parenteral Nutrition/Amino Acids/Dextrose/ Fat Emulsion Intravenous 1,512 ml @ 63 mls/hr TPN CONT IV Last administered on 10/18/21at 21:31; Start 10/18/21 at 22:00; Stop 10/19/21 at 21:59 Dexmedetomidine HCl 400 mcg/ Sodium Chloride 100 ml @ 5.25 mls/hr CONT PRN IV PER PROTOCOL Last administered on 10/19/21at 14:57; Start 10/18/21 at 16:00 Sodium Chloride 500 ml @ 500 mls/hr 1X PRN PRN IV SEE COMMENTS; Start 10/18/21 at 16:00 Atropine Sulfate (ATROPINE 0.5mg SYRINGE) 0.5 mg PRN Q5MIN PRN IV SEE COMMENTS; Start 10/18/21 at 16:00 Insulin Human Lispro (HumaLOG) 0-9 UNITS Q6HRS SQ Last administered on 10/19/21at 11:22; Start 10/18/21 at 18:00 Norepinephrine Bitartrate 8 mg/ Dextrose 258 ml @ 20.318 mls/ hr CONT PRN IV PER PROTOCOL Last administered on 10/18/21at 18:27; Start 10/18/21 at 18:30 Ceftriaxone Sodium (Rocephin) 1 gm Q24H IVP Last administered on 10/19/21at 07:38; Start 10/19/21 at 09:00; Stop 10/28/21 at 08:59 Sodium Chloride 90 meq/Potassium Chloride 20 meq/ Potassium Phosphate 13.6 mmol/Magnesium Sulfate 10 meq/ Multivitamins 10 ml/Zinc/Copper/ Manganese/ Selenium 1 ml/ Total Parenteral Nutrition/Amino Acids/Dextrose 1,512 ml @ 63 mls/hr TPN CONT IV ; Start 10/19/21 at 22:00; Stop 10/20/21 at 21:59 Insulin Glargine (Lantus Syringe) 25 unit DAILY SQ Last administered on 10/19/21at 11:21; Start 10/19/21 at 11:00; Stop 10/19/21 at 15:07; Status DC Insulin Human Lispro (HumaLOG) 20 units 1X ONCE SQ Last administered on 10/19/21at 11:21; Start 10/19/21 at 10:15; Stop 10/19/21 at 10:16; Status DC Insulin Human Lispro (HumaLOG) 20 units 1X ONCE SQ ; Start 10/19/21 at 15:15; Stop 10/19/21 at 15:16; Status DC Insulin Glargine (Lantus Syringe) 25 unit BID SQ ; Start 10/19/21 at 21:00 Active Scripts Active Reported Lipitor (Atorvastatin Calcium) 10 Mg Tablet 1 Tab PO QHS Lisinopril 20 Mg Tablet 1 Tab PO DAILY Metformin Hcl 500 Mg Tablet 1 Tab PO BID Vitals/I & O Vital Sign - Last 24 Hours 10/18/21 10/18/21 10/18/21 10/18/21 15:50 17:15 17:26 17:30 Temp 97.9 97.9 Pulse 80 74 Resp 28 32 B/P (MAP) 127/76 (93) 89/64 (72) Pulse Ox 93 92 94 O2 Delivery BiPAP/CPAP BiPAP/CPAP Vapotherm BiPAP/CPAP O2 Flow Rate 40.0 10/18/21 10/18/21 10/18/21 10/18/21 17:45 18:00 18:30 18:37 Pulse 68 66 60 Resp 32 34 B/P (MAP) 86/42 85/40 72/50 146/72 Pulse Ox 93 92 O2 Delivery BiPAP/CPAP BiPAP/CPAP 10/18/21 10/18/21 10/18/21 10/18/21 18:45 19:00 20:00 20:27 Temp 97.2 97.2 Pulse 68 67 Resp 29 26 B/P (MAP) 140/71 101/74 107/70 Pulse Ox 94 95 O2 Delivery BiPAP/CPAP Vapotherm BiPAP/CPAP O2 Flow Rate 40.0 10/18/21 10/18/21 10/18/21 10/18/21 20:38 22:00 22:55 23:00 Pulse 64 68 Resp 26 28 36 B/P (MAP) 114/72 116/77 Pulse Ox 96 96 94 O2 Delivery BiPAP/CPAP BiPAP/CPAP BiPAP/CPAP BiPAP/CPAP O2 Flow Rate 40.0 40.0 10/18/21 10/18/21 10/19/21 10/19/21 23:17 23:25 00:00 00:46 Pulse 60 Resp 28 26 B/P (MAP) 125/74 Pulse Ox 92 94 95 O2 Delivery BiPAP/CPAP BiPAP/CPAP BiPAP/CPAP 10/19/21 10/19/21 10/19/21 10/19/21 01:00 01:20 01:53 02:00 Pulse 60 62 Resp 29 26 36 26 B/P (MAP) 161/81 116/65 Pulse Ox 96 95 95 89 O2 Delivery BiPAP/CPAP BiPAP/CPAP O2 Flow Rate 40.0 10/19/21 10/19/21 10/19/21 10/19/21 02:25 03:20 03:47 04:00 Pulse 60 54 Resp 27 26 27 B/P (MAP) 123/67 145/66 Pulse Ox 83 92 90 92 O2 Delivery BiPAP/CPAP BiPAP/CPAP BiPAP/CPAP BiPAP/CPAP O2 Flow Rate 40.0 10/19/21 10/19/21 10/19/21 10/19/21 05:00 06:00 07:00 08:00 Temp 97.9 97.9 Pulse 62 58 56 52 Resp 27 31 32 28 B/P (MAP) 96/57 90/44 126/67 124/66 Pulse Ox 96 92 94 93 O2 Delivery BiPAP/CPAP BiPAP/CPAP BiPAP/CPAP BiPAP/CPAP 10/19/21 10/19/21 10/19/21 10/19/21 08:00 08:30 08:45 08:48 B/P (MAP) 135/74 112/65 Pulse Ox 96 O2 Delivery Vapotherm BiPAP/CPAP O2 Flow Rate 40.0 10/19/21 10/19/21 10/19/21 10/19/21 09:00 10:00 11:00 11:15 Pulse 54 58 56 Resp 28 30 28 B/P (MAP) 119/70 118/69 120/70 99/64 Pulse Ox 95 95 93 O2 Delivery BiPAP/CPAP BiPAP/CPAP BiPAP/CPAP 10/19/21 10/19/21 10/19/21 10/19/21 11:30 11:45 11:45 12:00 Temp 97.7 97.7 Pulse 57 Resp 26 B/P (MAP) 76/48 99/63 109/58 Pulse Ox 94 94 O2 Delivery BiPAP/CPAP BiPAP/CPAP 10/19/21 10/19/21 10/19/21 10/19/21 12:39 13:00 13:09 14:00 Pulse 58 55 Resp 36 30 28 30 B/P (MAP) 95/62 99/62 Pulse Ox 90 93 95 94 O2 Delivery BiPAP/CPAP BiPAP/CPAP BiPAP/CPAP BiPAP/CPAP 10/19/21 10/19/21 14:02 15:00 Pulse 55 Resp 34 B/P (MAP) 92/64 Pulse Ox 95 95 O2 Delivery BiPAP/CPAP BiPAP/CPAP Intake and Output 10/18/21 10/18/21 10/19/21 15:00 23:00 07:00 Intake Total 240 ml 755 ml Output Total 30 ml 430 ml Balance 210 ml 325 ml Justifications for Admission Other Justification Chest pain. RONDA WOODSON MD Oct 19, 2021 15:27
[2021-10-19] MEDS: ATORVASTATIN CALCIUM 10 MG TABLET. PO SCH (20:02)
[2021-10-19] MEDS: INSULIN GLARGINE SYRINGE. SQ SCH (20:33)
[2021-10-19] MEDS: ENOXAPARIN 40 MG/0.4 ML SYRINGE. SQ SCH (20:34)
[2021-10-19] MEDS ORDERED: [UNRECOGNIZED DRUG - OTHER] IV SCH (22:00)
[2021-10-19] MEDS ORDERED: DEXTROSE 70% IV SCH (22:00)
[2021-10-19] MEDS ORDERED: AMINO ACID IV SCH (22:00)
[2021-10-19] MEDS ORDERED: TOTAL PARENTERAL NUTRITION IV SCH (22:00)
[2021-10-19 22:32] LABS: BASE EXCESS ABG -4 mmol/L (-3-3); HCO3 ABG 19 mmol/L (21-28); PCO2 ABG 30 mmHg (35-46); SAT O2 ABG 76 % (92-99)
[2021-10-19 22:39] LABS: FIO2 ABG 100; PO2 ABG 43 mmHg (65-108)
[2021-10-19] MEDS ORDERED: VECURONIUM BOLUS 10 MG VIAL. IV PRN (22:45)
[2021-10-19] MEDS ORDERED: MIDAZOLAM HCL/PF 5 MG/5 ML VIAL. IVP PRN (22:45)
[2021-10-19] MEDS: MIDAZOLAM 100mg/100ml NS BAG 100 ML IV PRN (23:12)
[2021-10-19] MEDS ORDERED: ETOMIDATE 20 MG/10 ML VIAL. IV ONE ×2 (23:17→23:30)
[2021-10-19] MEDS ORDERED: SUCCINYLCHOLINE 200 MG/10 ML VIAL. ONE ×2 (23:17→23:30)
[2021-10-20] VITALS (27 sets, daily range): BP systolic 78–176; BP diastolic 47–97
--- NOTE | 2021-10-20 00:21 | NUR ---
Pt with increased work of breathing, on BIPAP 100% + Vapotherm 40L/100%, 02 sats in the 80s. RR in 50s, pt restless trying to get out of bed. Dr. Diallo notified of pt status, ABG obtained- see EMR. Orders received to intubate patient. Pt intubated at 2323 by [employer], tolerated well, see charting. Xray obtained. Pt currently sedated on vent, all VSS, CPOT 0. I did try to call patient's and update her, left a voicemail.
--- NOTE | 2021-10-20 00:33 | RAD ---
XR CHEST 1V Clinical History: Reason: post intubation / Spl. Instructions: / History: Technique: AP view of the chest was obtained at 10/19/2021 12:07 AM. Comparison: October 17, 2021. Findings: The heart is normal size. The pulmonary vessels appear normal. There is patchy reticular opacities of the lungs. There is subcutaneous emphysema seen in the upper chest and lower neck. There has been in terval placement of an endotracheal tube which is not well seen but likely has its tip in the mid tra dana. There is been interval placement of enteric tube with its tip well-positioned in the mid stomac h. The right PICC is again seen unchanged. There is air at the apices which may be tiny pneumothoraces. Impression: 1. Intrauterine tube and enteric tube are well-positioned. 2. New subcutaneous emphysema and probable tiny apical pneumothoraces. 3. Worsening diffuse pulmonary infiltrates. Electronically signed by: Menedl Leach III, MD (10/20/2021 12:30 AM) [facility]
[2021-10-20] MEDS: INSULIN LISPRO 300 UNITS/3 ML VIAL. SQ SCH ×4 (01:16→17:38)
[2021-10-20] MEDS: VECURONIUM BOLUS 10 MG VIAL. IV PRN ×4 (03:01→22:51)
[2021-10-20] MEDS: DEXMEDETOMIDINE 400 MCG in IV NORMAL SALINE 100ML 96 ML IV PRN ×4 (03:32→20:34)
[2021-10-20] MEDS: MIDAZOLAM 100mg/100ml NS BAG 100 ML IV PRN ×2 (03:32→11:47)
[2021-10-20] MEDS: fentaNYL HIGH DOSE PCA 55 ML IV PRN (05:19)
[2021-10-20] MEDS: LACTOBACILLUS RHAMNOSUS GG 1 CAPSULE. PO SCH ×2 (07:25→20:31)
[2021-10-20] MEDS: LISINOPRIL 20 MG TABLET PO SCH (07:25)
[2021-10-20] MEDS: DOXYCYCLINE HYCLATE 100 MG in IV DEXTROSE 5% 100ML 100 ML IV SCH ×2 (07:28→20:32)
[2021-10-20] MEDS: ASPIRIN CHEWABLE 81 MG TABLET. PO SCH (07:28)
[2021-10-20] MEDS: cefTRIAXone IV Push 1 GM VIAL. IVP SCH (07:28)
--- NOTE | 2021-10-20 08:32 | PDOC ---
PULMONARY PROGRESS NOTES DATE: 10/20/21 TIME: 08:29 Subjective Patient deteriorated last evening, required intubation Currently on 100% FiO2 9 of PEEP Hypotensive requiring norepinephrine Vitals Vital Signs Date Time Temp Pulse Resp B/P (MAP) Pulse Ox O2 Delivery O2 Flow Rate FiO2 10/20/21 08:23 97 Ventilator 10/20/21 08:00 98.6 64 22 92/57 98.6 10/20/21 05:49 40.0 Lungs: Clear Abdomen: Soft, Non-tender Extremities: No Edema Skin: Warm, No Rashes Labs Laboratory Tests Test 10/18/21 11:08 10/18/21 11:27 10/18/21 11:46 10/18/21 18:00 Heparin Anti-Xa Act, Unfractionated < 0.10 IU/mL (0.30-0.70) Glucose (Fingerstick) 234 mg/dL (70-99) 295 mg/dL (70-99) Sodium Level 131 mmol/L (136-145) Potassium Level 4.7 mmol/L (3.5-5.1) Chloride Level 97 mmol/L (98-107) Carbon Dioxide Level 25 mmol/L (21-32) Anion Gap 9 (6-14) Blood Urea Nitrogen 32 mg/dL (8-26) Creatinine 0.8 mg/dL (0.7-1.3) Estimated GFR (Cockcroft-Gault) 97.0 BUN/Creatinine Ratio 40 (6-20) Glucose Level 234 mg/dL (70-99) Calcium Level 7.7 mg/dL (8.5-10.1) Phosphorus Level 3.4 mg/dL (2.6-4.7) Magnesium Level 2.0 mg/dL (1.8-2.4) Total Bilirubin 0.9 mg/dL (0.2-1.0) Aspartate Amino Transf (AST/SGOT) 23 U/L (15-37) Alanine Aminotransferase (ALT/SGPT) 22 U/L (16-63) Alkaline Phosphatase 99 U/L (46-116) Total Protein 6.2 g/dL (6.4-8.2) Albumin 1.8 g/dL (3.4-5.0) Albumin/Globulin Ratio 0.4 (1.0-1.7) Test 10/19/21 00:56 10/19/21 02:45 10/19/21 06:31 10/19/21 06:35 Glucose (Fingerstick) 337 mg/dL (70-99) 354 mg/dL (70-99) O2 Saturation 89 % (92-99) Arterial Blood pH 7.53 (7.35-7.45) Arterial Blood pCO2 at Patient Temp 32 mmHg (35-46) Arterial Blood pO2 at Patient Temp 54 mmHg (65-108) Arterial Blood HCO3 26 mmol/L (21-28) Arterial Blood Base Excess 4 mmol/L (-3-3) FiO2 100 (vapobipap) Sodium Level 131 mmol/L (136-145) Potassium Level 4.7 mmol/L (3.5-5.1) Chloride Level 100 mmol/L (98-107) Carbon Dioxide Level 25 mmol/L (21-32) Anion Gap 6 (6-14) Blood Urea Nitrogen 43 mg/dL (8-26) Creatinine 1.0 mg/dL (0.7-1.3) Estimated GFR (Cockcroft-Gault) 75.0 BUN/Creatinine Ratio 43 (6-20) Glucose Level 375 mg/dL (70-99) Calcium Level 7.1 mg/dL (8.5-10.1) Phosphorus Level 3.8 mg/dL (2.6-4.7) Magnesium Level 2.0 mg/dL (1.8-2.4) Total Bilirubin 0.6 mg/dL (0.2-1.0) Aspartate Amino Transf (AST/SGOT) 11 U/L (15-37) Alanine Aminotransferase (ALT/SGPT) 12 U/L (16-63) Alkaline Phosphatase 82 U/L (46-116) Total Protein 5.5 g/dL (6.4-8.2) Albumin 1.6 g/dL (3.4-5.0) Albumin/Globulin Ratio 0.4 (1.0-1.7) Triglycerides Level 52 mg/dL (0-150) Test 10/19/21 11:19 10/19/21 17:21 10/19/21 22:25 10/20/21 01:15 Glucose (Fingerstick) 384 mg/dL (70-99) 372 mg/dL (70-99) 259 mg/dL (70-99) O2 Saturation 76 % (92-99) Arterial Blood pH 7.42 (7.35-7.45) Arterial Blood pCO2 at Patient Temp 30 mmHg (35-46) Arterial Blood pO2 at Patient Temp 43 mmHg (65-108) Arterial Blood HCO3 19 mmol/L (21-28) Arterial Blood Base Excess -4 mmol/L (-3-3) FiO2 100 Test 10/20/21 06:22 Glucose (Fingerstick) 237 mg/dL (70-99) Laboratory Tests Test 10/19/21 11:19 10/19/21 17:21 10/19/21 22:25 10/20/21 01:15 Glucose (Fingerstick) 384 mg/dL (70-99) 372 mg/dL (70-99) 259 mg/dL (70-99) O2 Saturation 76 % (92-99) Arterial Blood pH 7.42 (7.35-7.45) Arterial Blood pCO2 at Patient Temp 30 mmHg (35-46) Arterial Blood pO2 at Patient Temp 43 mmHg (65-108) Arterial Blood HCO3 19 mmol/L (21-28) Arterial Blood Base Excess -4 mmol/L (-3-3) FiO2 100 Test 10/20/21 06:22 Glucose (Fingerstick) 237 mg/dL (70-99) Medications Active Scripts Medications Dose Route/Sig Max Daily Dose Days Date Category Lipitor (Atorvastatin Calcium) 10 Mg Tablet 1 Tab PO QHS 10/10/21 Reported Lisinopril 20 Mg Tablet 1 Tab PO DAILY 08/11/14 Reported Metformin Hcl 500 Mg Tablet 1 Tab PO BID 08/11/14 Reported Impression . IMPRESSION: 1. Acute hypoxemic respiratory failure. Intubated 10/19, failed noninvasive ventilation 2. COVID-19 viral pneumonia/acute respiratory distress syndrome. 3. Possible bacterial pneumonia. 4. Chest pain, unstable angina, AMI ruled out 5. Hypertension. 6. Hyperlipidemia. 7. Type 2 diabetes. 7. Septic shock Plan . Updated 10/20 Continue current vent settings Repeat ABG pending Labs reviewed Patient continues to be critically ill Empiric antibiotics Received remdesivir Unable to diurese, blood pressure low Finished course of dexamethasone Monitor blood sugars CCT 30 minutes Updated 10/19 Transfer to the intensive care unit Continue Vapotherm and BiPAP Complete course of dexamethasone On IV doxycycline, add Rocephin patient is s/p remdesivir DELFIN FRANCO MD Oct 20, 2021 08:32
[2021-10-20 08:44] LABS: BASE EXCESS ABG -3 mmol/L (-3-3); HCO3 ABG 24 mmol/L (21-28); PCO2 ABG 54 mmHg (35-46); PO2 ABG 62 mmHg (65-108); SAT O2 ABG 87 % (92-99)
[2021-10-20 08:48] LABS: FIO2 ABG 100
[2021-10-20] MEDS: FAMOTIDINE 20 MG/2 ML VIAL IVP SCH ×2 (08:59→20:31)
[2021-10-20] MEDS: INSULIN GLARGINE SYRINGE. SQ SCH ×2 (09:00→20:33)
[2021-10-20 09:28] LABS: ALBUMIN 1.5 g/dL (3.4-5.0); ALBUMIN/GLOBULIN RATIO 0.4 (1.0-1.7); CALCIUM 7.5 mg/dL (8.5-10.1); CREATININE 0.9 mg/dL (0.7-1.3); GFR 84.7; MAGNESIUM 2.3 mg/dL (1.8-2.4); PHOSPHORUS 4.6 mg/dL (2.6-4.7); TOTAL BILIRUBIN 0.2 mg/dL (0.2-1.0); TOTAL PROTEIN 5.7 g/dL (6.4-8.2)
[2021-10-20 09:32] LABS: POTASSIUM 5.4 mmol/L (3.5-5.1)
[2021-10-20 09:37] LABS: BASO % 0 % (0-3); EOS % 0 % (0-3); HEMATOCRIT 38.9 % (39.0-53.0); HEMOGLOBIN 12.5 g/dL (13.0-17.5); LYMPH # 0.4 x10^3/uL (1.0-4.8); LYMPH % 2 % (24-48); MEAN CORPUSCULAR HEMOGLOBIN 32 pg (25-35); MEAN CORPUSCULAR HGB CONC 32 g/dL (31-37); MEAN CORPUSCULAR VOLUME 100 fL (79-100); MONO # 0.4 x10^3/uL (0.0-1.1); MONO % 2 % (0-9); NEUT # 21.8 x10^3/uL (1.8-7.7); NEUT % 96 % (31-73); PLATELET COUNT 194 x10^3/uL (140-400); RED BLOOD COUNT 3.89 x10^6/uL (4.30-5.70); RED CELL DISTRIBUTION WIDTH 13.2 % (11.5-14.5); WHITE BLOOD COUNT 22.7 x10^3/uL (4.0-11.0)
[2021-10-20 10:23] LABS: % BANDS 1 % (0-9); % LYMPHS 2 % (24-48); % MONOS 2 % (0-10); % SEGS 95 % (35-66); PLT ESTIMATE ADEQUATE (ADEQUATE)
--- NOTE | 2021-10-20 14:28 | PDOC ---
[employer] PROGRESS NOTE Date of Service DOS: DATE: 10/20/21 TIME: 14:26 Chief Complaint Chief Complaint COVID -19 pneumonia, ARDS, acute hypoxic respiratory failure on vent sepsis, severe sepsis admit for Atypical chest pain, rule out ACS Acute electrolyte derangementhyponatremia, hypochloremia suggestive of volume depletion COVID-19 infection Hyperglycemia Thrombocytopenia History of type 2 diabetes mellitus History of hypertension History of dyslipidemia obese, BMI 36 History of Present Illness History of Present Illness 10/20, on vent, has declined, discussed with - 18 minutes by phone of advanced care planning cont current prognosis poor now no vent s/p 10 days steroids blood sugar is better 10/19, to ICU overnight, vapotherm and bipap 100% to maintain calm, diong OK, PULM and CV following 10/18: Requiring nearly continuous BiPAP with supplemental Vapotherm 40 L/min percent FiO2 little drowsy today weak. Discussed with his . He is consentable to further interventions such as intubation Regonol is maintaining O2 saturations 92%. 10/17: Further to desaturations as supplemental BiPAP in addition to Vapotherm 40 L/min 100% FiO2. He is able to converse. He does not want to be intubated if he would have a prolonged stay on the ventilator and is asked if his can be updated. NA 130. Not eating. PICC line for TPN 10/16: Seen bedside on her percent FiO2 Vapotherm 40 L/min with supplemental facemask O2. Chest radiograph with poor inspiratory effort. Is still gets relatively significant desaturations. Counseled on incentive spirometer and severity of his disease. Sodium is 131 today he says he is eating 10/15: ABG 7.5 01/09/63 on 100% FiO2 Vapotherm 40 L/min with supplemental facemask O2. Seen bedside. Complains of rhinitis and try to get up to use urinal and desats into the low 80s with this. Counseled maintain his Vapotherm. Complains of pain behind his ear 10/14: Seen bedside. On 40 L/min 100% FiO2 with supplemental facemask. Has a little bit of an appetite. Significant desaturations with movement. No chest pain. Still short of breath with cough. Cardiac cath plans canceled. 10/13: Evaluated examined at bedside. Shortness of breath is a little bit worse and oxygenation has increased a little bit. Add on remdesivir today add doxycycline. 10/12: Evaluated and examined at bedside. Had just gotten back from bathroom a little SOB on increased O2 setting to sat back up but back up in 90's when seen. 10/11: Evaluate examined at bedside. Resting in bed. Understands this plan for procedure Thursday. Continuing COVID treatment. Plan discussed with bedside RN. 10/10: Patient evaluate examined at bedside. Was resting in bed really coughing. Informed of reason procedure pushed to Thursday with Covid positive. He understood well. Will start dexamethasone and Rocephin for Covid positivity. Rocephin cover any bacterial pneumonias. As needed cough medicine. If he starts require oxygen can start remdesivir then. Otherwise continue to follow. Up ad felicity. Vitals/I&O Vitals/I&O: Vital Signs Date Time Temp Pulse Resp B/P (MAP) Pulse Ox O2 Delivery O2 Flow Rate FiO2 10/20/21 14:06 95 Ventilator 10/20/21 14:00 63 20 90/55 10/20/21 12:00 98.7 98.7 10/20/21 05:49 40.0 I & O 10/19/21 10/19/21 10/20/21 15:00 23:00 07:00 Intake Total 100 ml 947 ml 1406.1 ml Output Total 575 ml 675 ml 390 ml Balance -475 ml 272 ml 1016.1 ml Physical Exam General: Alert, Oriented X3, Cooperative, No acute distress Heart: Regular rate, Normal S1, Normal S2, No murmurs Lungs: Clear Abdomen: Soft, No tenderness, Other (truncakl obesity) Extremities: No cyanosis, No edema Skin: No breakdown, No significant lesion Labs Labs: Laboratory Tests Test 10/19/21 17:21 10/19/21 22:25 10/20/21 01:15 10/20/21 06:22 Glucose (Fingerstick) 372 mg/dL (70-99) 259 mg/dL (70-99) 237 mg/dL (70-99) O2 Saturation 76 % (92-99) Arterial Blood pH 7.42 (7.35-7.45) Arterial Blood pCO2 at Patient Temp 30 mmHg (35-46) Arterial Blood pO2 at Patient Temp 43 mmHg (65-108) Arterial Blood HCO3 19 mmol/L (21-28) Arterial Blood Base Excess -4 mmol/L (-3-3) FiO2 100 Test 10/20/21 08:40 10/20/21 11:43 White Blood Count 22.7 x10^3/uL (4.0-11.0) Red Blood Count 3.89 x10^6/uL (4.30-5.70) Hemoglobin 12.5 g/dL (13.0-17.5) Hematocrit 38.9 % (39.0-53.0) Mean Corpuscular Volume 100 fL (79-100) Mean Corpuscular Hemoglobin 32 pg (25-35) Mean Corpuscular Hemoglobin Concent 32 g/dL (31-37) Red Cell Distribution Width 13.2 % (11.5-14.5) Platelet Count 194 x10^3/uL (140-400) Neutrophils (%) (Auto) 96 % (31-73) Lymphocytes (%) (Auto) 2 % (24-48) Monocytes (%) (Auto) 2 % (0-9) Eosinophils (%) (Auto) 0 % (0-3) Basophils (%) (Auto) 0 % (0-3) Neutrophils # (Auto) 21.8 x10^3/uL (1.8-7.7) Lymphocytes # (Auto) 0.4 x10^3/uL (1.0-4.8) Monocytes # (Auto) 0.4 x10^3/uL (0.0-1.1) Eosinophils # (Auto) 0.0 x10^3/uL (0.0-0.7) Basophils # (Auto) 0.0 x10^3/uL (0.0-0.2) Segmented Neutrophils % 95 % (35-66) Band Neutrophils % 1 % (0-9) Lymphocytes % 2 % (24-48) Monocytes % 2 % (0-10) Platelet Estimate Adequate (ADEQUATE) O2 Saturation 87 % (92-99) Arterial Blood pH 7.27 (7.35-7.45) Arterial Blood pCO2 at Patient Temp 54 mmHg (35-46) Arterial Blood pO2 at Patient Temp 62 mmHg (65-108) Arterial Blood HCO3 24 mmol/L (21-28) Arterial Blood Base Excess -3 mmol/L (-3-3) FiO2 100 Sodium Level 136 mmol/L (136-145) Potassium Level 5.4 mmol/L (3.5-5.1) Chloride Level 101 mmol/L (98-107) Carbon Dioxide Level 28 mmol/L (21-32) Anion Gap 7 (6-14) Blood Urea Nitrogen 36 mg/dL (8-26) Creatinine 0.9 mg/dL (0.7-1.3) Estimated GFR (Cockcroft-Gault) 84.7 BUN/Creatinine Ratio 40 (6-20) Glucose Level 219 mg/dL (70-99) Calcium Level 7.5 mg/dL (8.5-10.1) Phosphorus Level 4.6 mg/dL (2.6-4.7) Magnesium Level 2.3 mg/dL (1.8-2.4) Total Bilirubin 0.2 mg/dL (0.2-1.0) Aspartate Amino Transf (AST/SGOT) 22 U/L (15-37) Alanine Aminotransferase (ALT/SGPT) 17 U/L (16-63) Alkaline Phosphatase 96 U/L (46-116) Total Protein 5.7 g/dL (6.4-8.2) Albumin 1.5 g/dL (3.4-5.0) Albumin/Globulin Ratio 0.4 (1.0-1.7) Glucose (Fingerstick) 221 mg/dL (70-99) Assessment and Plan Assessmemt and Plan Problems Medical Problems: (1) Chest pain Status: Acute (2) Fever Status: Acute (3) Lab test positive for detection of COVID-19 virus Status: Acute Comment Review of Relevant I have reviewed the following items bo (where applicable) has been applied. Medications: Current Medications Medications (Trade) Dose Ordered Sig/Jodi Route PRN Reason Start Time Stop Time Status Last Admin Dose Admin Sodium Chloride 90 meq/Potassium Chloride 20 meq/ Potassium Phosphate 13.6 mmol/Magnesium Sulfate 10 meq/ Multivitamins 10 ml/Zinc/Copper/ Manganese/ Selenium 1 ml/ Total Parenteral Nutrition/Amino Acids/Dextrose 1,512 ml @ 63 mls/hr TPN CONT IV 10/19/21 22:00 10/20/21 21:59 10/19/21 21:24 Insulin Human Lispro (HumaLOG) 20 units 1X ONCE SQ 10/19/21 15:15 10/19/21 15:16 DC 10/19/21 17:28 Insulin Glargine (Lantus Syringe) 25 unit BID SQ 10/19/21 21:00 10/20/21 09:00 Fentanyl Citrate 30 ml @ 2.5 mls/hr CONT PRN IV SEE PROTOCOL 10/19/21 22:45 10/20/21 05:30 DC 10/19/21 23:12 Midazolam HCl 100 ml @ 1 mls/hr CONT PRN IV SEE PROTOCOL 10/19/21 22:45 10/20/21 11:47 Vecuronium [place] (Norcuron Bolus) 6 mg PRN 1X PRN IV VENT INDUCTION 10/19/21 22:45 10/20/21 00:14 DC 10/20/21 00:13 Vecuronium [place] (Norcuron Bolus) 6 mg PRN Q6HRS PRN IV VENTILATOR COMPLIANCE 10/20/21 00:00 10/20/21 10:22 Fentanyl Citrate 55 ml @ 1 mls/hr CONT PRN IV PER PROTOCOL 10/20/21 05:15 10/20/21 05:19 Aspirin (Aspirin Chewable) 81 mg [id number] PO 10/20/21 08:00 10/20/21 07:28 Famotidine (Pepcid Vial) 20 mg BID IVP 10/20/21 09:00 10/20/21 08:59 Justifications for Admission Other Justification Chest pain. LELIA LOPEZ MD Oct 20, 2021 14:28
--- NOTE | 2021-10-20 14:44 | PDOC ---
PROGRESS NOTES Date of Service DATE: 10/20/21 TIME: 14:41 Subjective Subjective Patient seen and evaluated. Objective Objective Vital Signs Date Time Temp Pulse Resp B/P (MAP) Pulse Ox O2 Delivery O2 Flow Rate FiO2 10/20/21 14:30 78/47 10/20/21 14:06 95 Ventilator 10/20/21 14:00 63 20 10/20/21 12:00 98.7 98.7 10/20/21 05:49 40.0 10/18/21 08:00 N/A Intake and Output 10/20/21 07:00 Intake Total 2453.1 ml Output Total 1640 ml Balance 813.1 ml IV Total 2453.1 ml Output Urine Total 1640 ml Physical Exam Physical Exam Visual examination secondary to COVID status Assessment Assessment Problems Medical Problems: (1) Chest pain Status: Acute (2) Fever Status: Acute (3) Lab test positive for detection of COVID-19 virus Status: Acute Chest pain; AMI ruled out. Continue aspirin and medical treatment. Acute respiratory failure secondary to COVID PNA. Transferred to the ICU. Now intubated. Continue as per the pulmonary service. WBC elevated to 22.7. HTN: Hypotension. Pressors as needed. HLP. Statin DM2. Continuing present treatment. Morbid obesity Comment Review of Relevant I have reviewed the following items bo (where applicable) has been applied. Labs Laboratory Tests Test 10/18/21 18:00 10/19/21 00:56 10/19/21 02:45 10/19/21 06:31 Glucose (Fingerstick) 295 mg/dL (70-99) 337 mg/dL (70-99) 354 mg/dL (70-99) O2 Saturation 89 % (92-99) Arterial Blood pH 7.53 (7.35-7.45) Arterial Blood pCO2 at Patient Temp 32 mmHg (35-46) Arterial Blood pO2 at Patient Temp 54 mmHg (65-108) Arterial Blood HCO3 26 mmol/L (21-28) Arterial Blood Base Excess 4 mmol/L (-3-3) FiO2 100 (vapobipap) Test 10/19/21 06:35 10/19/21 11:19 10/19/21 17:21 10/19/21 22:25 Sodium Level 131 mmol/L (136-145) Potassium Level 4.7 mmol/L (3.5-5.1) Chloride Level 100 mmol/L (98-107) Carbon Dioxide Level 25 mmol/L (21-32) Anion Gap 6 (6-14) Blood Urea Nitrogen 43 mg/dL (8-26) Creatinine 1.0 mg/dL (0.7-1.3) Estimated GFR (Cockcroft-Gault) 75.0 BUN/Creatinine Ratio 43 (6-20) Glucose Level 375 mg/dL (70-99) Calcium Level 7.1 mg/dL (8.5-10.1) Phosphorus Level 3.8 mg/dL (2.6-4.7) Magnesium Level 2.0 mg/dL (1.8-2.4) Total Bilirubin 0.6 mg/dL (0.2-1.0) Aspartate Amino Transf (AST/SGOT) 11 U/L (15-37) Alanine Aminotransferase (ALT/SGPT) 12 U/L (16-63) Alkaline Phosphatase 82 U/L (46-116) Total Protein 5.5 g/dL (6.4-8.2) Albumin 1.6 g/dL (3.4-5.0) Albumin/Globulin Ratio 0.4 (1.0-1.7) Triglycerides Level 52 mg/dL (0-150) Glucose (Fingerstick) 384 mg/dL (70-99) 372 mg/dL (70-99) O2 Saturation 76 % (92-99) Arterial Blood pH 7.42 (7.35-7.45) Arterial Blood pCO2 at Patient Temp 30 mmHg (35-46) Arterial Blood pO2 at Patient Temp 43 mmHg (65-108) Arterial Blood HCO3 19 mmol/L (21-28) Arterial Blood Base Excess -4 mmol/L (-3-3) FiO2 100 Test 10/20/21 01:15 10/20/21 06:22 10/20/21 08:40 10/20/21 11:43 Glucose (Fingerstick) 259 mg/dL (70-99) 237 mg/dL (70-99) 221 mg/dL (70-99) White Blood Count 22.7 x10^3/uL (4.0-11.0) Red Blood Count 3.89 x10^6/uL (4.30-5.70) Hemoglobin 12.5 g/dL (13.0-17.5) Hematocrit 38.9 % (39.0-53.0) Mean Corpuscular Volume 100 fL (79-100) Mean Corpuscular Hemoglobin 32 pg (25-35) Mean Corpuscular Hemoglobin Concent 32 g/dL (31-37) Red Cell Distribution Width 13.2 % (11.5-14.5) Platelet Count 194 x10^3/uL (140-400) Neutrophils (%) (Auto) 96 % (31-73) Lymphocytes (%) (Auto) 2 % (24-48) Monocytes (%) (Auto) 2 % (0-9) Eosinophils (%) (Auto) 0 % (0-3) Basophils (%) (Auto) 0 % (0-3) Neutrophils # (Auto) 21.8 x10^3/uL (1.8-7.7) Lymphocytes # (Auto) 0.4 x10^3/uL (1.0-4.8) Monocytes # (Auto) 0.4 x10^3/uL (0.0-1.1) Eosinophils # (Auto) 0.0 x10^3/uL (0.0-0.7) Basophils # (Auto) 0.0 x10^3/uL (0.0-0.2) Segmented Neutrophils % 95 % (35-66) Band Neutrophils % 1 % (0-9) Lymphocytes % 2 % (24-48) Monocytes % 2 % (0-10) Platelet Estimate Adequate (ADEQUATE) O2 Saturation 87 % (92-99) Arterial Blood pH 7.27 (7.35-7.45) Arterial Blood pCO2 at Patient Temp 54 mmHg (35-46) Arterial Blood pO2 at Patient Temp 62 mmHg (65-108) Arterial Blood HCO3 24 mmol/L (21-28) Arterial Blood Base Excess -3 mmol/L (-3-3) FiO2 100 Sodium Level 136 mmol/L (136-145) Potassium Level 5.4 mmol/L (3.5-5.1) Chloride Level 101 mmol/L (98-107) Carbon Dioxide Level 28 mmol/L (21-32) Anion Gap 7 (6-14) Blood Urea Nitrogen 36 mg/dL (8-26) Creatinine 0.9 mg/dL (0.7-1.3) Estimated GFR (Cockcroft-Gault) 84.7 BUN/Creatinine Ratio 40 (6-20) Glucose Level 219 mg/dL (70-99) Calcium Level 7.5 mg/dL (8.5-10.1) Phosphorus Level 4.6 mg/dL (2.6-4.7) Magnesium Level 2.3 mg/dL (1.8-2.4) Total Bilirubin 0.2 mg/dL (0.2-1.0) Aspartate Amino Transf (AST/SGOT) 22 U/L (15-37) Alanine Aminotransferase (ALT/SGPT) 17 U/L (16-63) Alkaline Phosphatase 96 U/L (46-116) Total Protein 5.7 g/dL (6.4-8.2) Albumin 1.5 g/dL (3.4-5.0) Albumin/Globulin Ratio 0.4 (1.0-1.7) Laboratory Tests Test 10/19/21 17:21 10/19/21 22:25 10/20/21 01:15 10/20/21 06:22 Glucose (Fingerstick) 372 mg/dL (70-99) 259 mg/dL (70-99) 237 mg/dL (70-99) O2 Saturation 76 % (92-99) Arterial Blood pH 7.42 (7.35-7.45) Arterial Blood pCO2 at Patient Temp 30 mmHg (35-46) Arterial Blood pO2 at Patient Temp 43 mmHg (65-108) Arterial Blood HCO3 19 mmol/L (21-28) Arterial Blood Base Excess -4 mmol/L (-3-3) FiO2 100 Test 10/20/21 08:40 10/20/21 11:43 White Blood Count 22.7 x10^3/uL (4.0-11.0) Red Blood Count 3.89 x10^6/uL (4.30-5.70) Hemoglobin 12.5 g/dL (13.0-17.5) Hematocrit 38.9 % (39.0-53.0) Mean Corpuscular Volume 100 fL (79-100) Mean Corpuscular Hemoglobin 32 pg (25-35) Mean Corpuscular Hemoglobin Concent 32 g/dL (31-37) Red Cell Distribution Width 13.2 % (11.5-14.5) Platelet Count 194 x10^3/uL (140-400) Neutrophils (%) (Auto) 96 % (31-73) Lymphocytes (%) (Auto) 2 % (24-48) Monocytes (%) (Auto) 2 % (0-9) Eosinophils (%) (Auto) 0 % (0-3) Basophils (%) (Auto) 0 % (0-3) Neutrophils # (Auto) 21.8 x10^3/uL (1.8-7.7) Lymphocytes # (Auto) 0.4 x10^3/uL (1.0-4.8) Monocytes # (Auto) 0.4 x10^3/uL (0.0-1.1) Eosinophils # (Auto) 0.0 x10^3/uL (0.0-0.7) Basophils # (Auto) 0.0 x10^3/uL (0.0-0.2) Segmented Neutrophils % 95 % (35-66) Band Neutrophils % 1 % (0-9) Lymphocytes % 2 % (24-48) Monocytes % 2 % (0-10) Platelet Estimate Adequate (ADEQUATE) O2 Saturation 87 % (92-99) Arterial Blood pH 7.27 (7.35-7.45) Arterial Blood pCO2 at Patient Temp 54 mmHg (35-46) Arterial Blood pO2 at Patient Temp 62 mmHg (65-108) Arterial Blood HCO3 24 mmol/L (21-28) Arterial Blood Base Excess -3 mmol/L (-3-3) FiO2 100 Sodium Level 136 mmol/L (136-145) Potassium Level 5.4 mmol/L (3.5-5.1) Chloride Level 101 mmol/L (98-107) Carbon Dioxide Level 28 mmol/L (21-32) Anion Gap 7 (6-14) Blood Urea Nitrogen 36 mg/dL (8-26) Creatinine 0.9 mg/dL (0.7-1.3) Estimated GFR (Cockcroft-Gault) 84.7 BUN/Creatinine Ratio 40 (6-20) Glucose Level 219 mg/dL (70-99) Calcium Level 7.5 mg/dL (8.5-10.1) Phosphorus Level 4.6 mg/dL (2.6-4.7) Magnesium Level 2.3 mg/dL (1.8-2.4) Total Bilirubin 0.2 mg/dL (0.2-1.0) Aspartate Amino Transf (AST/SGOT) 22 U/L (15-37) Alanine Aminotransferase (ALT/SGPT) 17 U/L (16-63) Alkaline Phosphatase 96 U/L (46-116) Total Protein 5.7 g/dL (6.4-8.2) Albumin 1.5 g/dL (3.4-5.0) Albumin/Globulin Ratio 0.4 (1.0-1.7) Glucose (Fingerstick) 221 mg/dL (70-99) Microbiology 10/09/21 Blood Culture - Final, Complete NO GROWTH AFTER 5 DAYS Medications Current Medications Aspirin (Aj Aspirin) 325 mg 1X ONCE PO Last administered on 10/09/21at 17:57; Start 10/09/21 at 17:30; Stop 10/09/21 at 17:31; Status DC Nitroglycerin (Nitrostat) 0.4 mg PRN Q5MIN PRN SL CP RATING > 1/10; Start 10/09/21 at 17:30; Stop 10/10/21 at 17:29; Status DC Morphine Sulfate (Morphine Sulfate) 4 mg PRN Q15MIN PRN IV/SQ PAIN GREATER THAN 3/10; Start 10/09/21 at 17:30; Stop 10/09/21 at 23:00; Status DC Ondansetron HCl (Zofran) 4 mg PRN Q8HRS PRN IVP NAUSEA/VOMITING; Start 10/09/21 at 20:00; Stop 10/09/21 at 21:24; Status DC Morphine Sulfate (Morphine Sulfate) 4 mg PRN Q2HR PRN IVP PAIN; Start 10/09/21 at 20:00; Stop 10/09/21 at 21:23; Status DC Acetaminophen (Tylenol) 650 mg PRN Q4HRS PRN PO FEVER > 100.3'F; Start 10/09/21 at 20:00; Stop 10/09/21 at 21:22; Status DC Nitroglycerin (Nitrostat) 0.4 mg PRN Q5MIN PRN SL CHEST PAIN; Start 10/09/21 at 20:00; Stop 10/10/21 at 19:59; Status UNV Acetaminophen (Tylenol) 1,000 mg 1X ONCE PO Last administered on 10/09/21at 21:03; Start 10/09/21 at 20:00; Stop 10/09/21 at 20:01; Status DC Sodium Chloride 1,000 ml @ 75 mls/hr 1X ONCE IV Last administered on 10/09/21at 21:04; Start 10/09/21 at 20:00; Stop 10/10/21 at 09:19; Status DC Famotidine (Pepcid Vial) 20 mg 1X ONCE IVP Last administered on 10/09/21at 21:04; Start 10/09/21 at 20:30; Stop 10/09/21 at 20:31; Status DC Sennosides (Senna) 17.2 mg PRN BID PRN PO CONSTIPATION; Start 10/09/21 at 21:15 Docusate Sodium (Colace) 100 mg PRN DAILY PRN PO HARD STOOLS Last administered on 10/17/21at 20:23; Start 10/09/21 at 21:15 Ondansetron HCl (Zofran) 4 mg PRN Q6HRS PRN IVP NAUSEA/VOMITING, 1st CHOICE Last administered on 10/16/21at 02:38; Start 10/09/21 at 21:15 Aspirin (Aj Aspirin) 325 mg DAILYWBKFT PO Last administered on 10/10/21at 09:07; Start 10/10/21 at 08:00; Stop 10/10/21 at 10:44; Status DC Insulin Human Lispro (HumaLOG) 0-9 UNITS TIDWMEALS SQ Last administered on 10/18/21at 12:05; Start 10/10/21 at 08:00; Stop 10/18/21 at 16:45; Status DC Dextrose (Dextrose 50%-Water Syringe) 12.5 gm PRN Q15MIN PRN IV SEE COMMENTS; Start 10/09/21 at 21:15 Sodium Chloride 1,000 ml @ 100 mls/hr Q10H IV Last administered on 10/11/21at 05:11; Start 10/10/21 at 10:00; Stop 10/11/21 at 12:02; Status DC Acetaminophen (Tylenol) 650 mg PRN Q4HRS PRN PO TEMP OVER 100.4F OR MILD PAIN Last administered on 10/14/21at 21:38; Start 10/09/21 at 21:15 Lorazepam (Ativan) 0.5 mg PRN Q6HRS PRN PO ANXIETY / AGITATION Last administered on 10/17/21 09:24; Start 10/09/21 at 21:15 Lorazepam (Ativan Inj) 0.25 mg PRN Q4HRS PRN IV ANXIETY / AGITATION Last administered on 10/19/21 16:41; Start 10/09/21 at 21:15 Enoxaparin Sodium (Lovenox 40mg Syringe) 40 mg Q24H SQ Last administered on 10/19/21 20:34; Start 10/09/21 at 21:00 Morphine Sulfate (Morphine Sulfate) 1 mg PRN Q1HR PRN IV PAIN Last administered on 10/19/21 15:39; Start 10/09/21 at 21:15; Stop 10/19/21 at 22:45; Status DC Morphine Sulfate (Morphine Sulfate) 2 mg PRN Q2HR PRN IVP SEVERE PAIN 7-10; Start 10/09/21 at 21:15; Stop 10/10/21 at 21:14; Status DC Prochlorperazine Edisylate (Compazine) 10 mg PRN Q6HRS PRN IV NAUSEA/VOMITING, 2nd CHOICE Last administered on 10/19/21 01:53; Start 10/09/21 at 21:15 Diphenhydramine HCl (Benadryl) 25 mg PRN Q6HRS PRN IVP ITCHING; Start 10/09/21 at 21:15 Diphenhydramine HCl (Benadryl) 25 mg PRN Q6HRS PRN PO ITCHING; Start 10/09/21 at 21:15 Diphenhydramine HCl (Benadryl) 25 mg PRN QHS PRN PO INSOMNIA, 1st CHOICE Last administered on 10/18/21 21:45; Start 10/09/21 at 21:15 Zolpidem Tartrate (Ambien) 2.5 mg PRN QHS PRN PO INSOMNIA, 2nd CHOICE Last a dministered on 10/13/21 21:54; Start 10/09/21 at 21:15 Atorvastatin Calcium (Lipitor) 10 mg QHS PO Last administered on 10/17/21 20:23; Start 10/10/21 at 21:00 Lisinopril (Prinivil) 20 mg DAILY PO Last administered on 10/17/21 09:00; Start 10/10/21 at 10:00 Metformin HCl (Glucophage) 500 mg BIDWMEALS PO Last administered on 10/16/21 16:30; Start 10/10/21 at 10:00; Stop 10/19/21 at 10:48; Status DC Dexamethasone Sodium Phosphate (Decadron) 6 mg DAILY IVP Last administered on 10/19/21 07:38; Start 10/10/21 at 10:00; Stop 10/19/21 at 09:01; Status DC Ceftriaxone Sodium (Rocephin) 1 gm Q24H IVP Last administered on 10/16/21 07:59; Start 10/10/21 at 10:00; Stop 10/16/21 at 10:01; Status DC Aspirin (Ecotrin) 81 mg DAILYWBKFT PO Last administered on 10/17/21 09:24; Start 10/11/21 at 08:00; Stop 10/20/21 at 07:21; Status DC Guaifenesin/ Codeine Phosphate (Robitussin Ac) 5 ml PRN Q6HRS PRN PO COUGH Last administered on 10/19/21at 01:30; Start 10/10/21 at 12:30 Magnesium Sulfate 50 ml @ 25 mls/hr 1X ONCE IV Last administered on 10/11/21at 08:45; Start 10/11/21 at 08:00; Stop 10/11/21 at 09:59; Status DC Lactobacillus Rhamnosus (Culturelle) 1 cap BID PO Last administered on 10/17/21at 20:23; Start 10/12/21 at 21:00 Doxycycline Hyclate (Vibra-Tab) 100 mg BID PO Last administered on 10/17/21 20:23; Start 10/13/21 at 13:30; Stop 10/18/21 at 12:12; Status DC Remdesivir 200 mg/ Sodium Chloride 210 ml @ 210 mls/hr 1X ONCE IV Last administered on 10/13/21at 15:12; Start 10/13/21 at 15:00; Stop 10/13/21 at 15:59; Status DC Remdesivir 100 mg/ Sodium Chloride 230 ml @ 460 mls/hr Q24H IV Last administered on 10/17/21at 15:42; Start 10/14/21 at 14:00; Stop 10/17/21 at 14:29; Status DC Sterile Water (WATER for RESP) 1,000 ml CONT PRN INH VIA VAPOTHERM DEVICE Last administered on 10/19/21 21:07; Start 10/14/21 at 04:15 Zinc Oxide (Zinc Oxide 20% Topical) 1 mj PRN Q4HRS PRN TP SKIN PROTECTION Last administered on 10/15/21at 11:52; Start 10/15/21 at 11:15 Simethicone (Gas-X) 80 mg PRN AFTMEALHC PRN PO GAS / BLOATING Last administered on 10/18/21at 22:54; Start 10/18/21 at 04:45 Info (Tpn Per Pharmacy) 1 each PRN DAILY PRN MC SEE COMMENTS Last administered on 10/19/21 07:48; Start 10/18/21 at 10:45; Stop 10/20/21 at 10:21; Status DC Dextrose/Lactated Ringer's 1,000 ml @ 75 mls/hr 1X ONCE IV Last administered on 10/18/21at 13:43; Start 10/18/21 at 10:45; Stop 10/19/21 at 00:04; Status DC Doxycycline Hyclate 100 mg/ Dextrose 100 ml @ 50 mls/hr Q12HR IV Last administered on 10/20/21at 07:28; Start 10/18/21 at 13:00 Sodium Chloride 90 meq/Potassium Chloride 20 meq/ Potassium Phosphate 13.6 mmol/Magnesium Sulfate 10 meq/ Multivitamins 10 ml/Zinc/Copper/ Manganese/ Selenium 1 ml/ Total Parenteral Nutrition/Amino Acids/Dextrose/ Fat Emulsion Intravenous 1,512 ml @ 63 mls/hr TPN CONT IV Last administered on 10/18/21at 21:31; Start 10/18/21 at 22:00; Stop 10/19/21 at 21:59; Status DC Dexmedetomidine HCl 400 mcg/ Sodium Chloride 100 ml @ 5.25 mls/hr CONT PRN IV PER PROTOCOL Last administered on 10/20/21at 14:07; Start 10/18/21 at 16:00 Sodium Chloride 500 ml @ 500 mls/hr 1X PRN PRN IV SEE COMMENTS; Start 10/18/21 at 16:00 Atropine Sulfate (ATROPINE 0.5mg SYRINGE) 0.5 mg PRN Q5MIN PRN IV SEE COMMENTS; Start 10/18/21 at 16:00 Insulin Human Lispro (HumaLOG) 0-9 UNITS Q6HRS SQ Last administered on 10/20/21at 11:47; Start 10/18/21 at 18:00 Norepinephrine Bitartrate 8 mg/ Dextrose 258 ml @ 20.318 mls/ hr CONT PRN IV PER PROTOCOL Last administered on 10/18/21at 18:27; Start 10/18/21 at 18:30 Ceftriaxone Sodium (Rocephin) 1 gm Q24H IVP Last administered on 10/20/21at 07:28; Start 10/19/21 at 09:00; Stop 10/28/21 at 08:59 Sodium Chloride 90 meq/Potassium Chloride 20 meq/ Potassium Phosphate 13.6 mmol/Magnesium Sulfate 10 meq/ Multivitamins 10 ml/Zinc/Copper/ Manganese/ Selenium 1 ml/ Total Parenteral Nutrition/Amino Acids/Dextrose 1,512 ml @ 63 mls/hr TPN CONT IV Last administered on 10/19/21at 21:24; Start 10/19/21 at 22:00; Stop 10/20/21 at 21:59 Insulin Glargine (Lantus Syringe) 25 unit DAILY SQ Last administered on 10/19/21at 11:21; Start 10/19/21 at 11:00; Stop 10/19/21 at 15:07; Status DC Insulin Human Lispro (HumaLOG) 20 units 1X ONCE SQ Last administered on 10/19/21at 11:21; Start 10/19/21 at 10:15; Stop 10/19/21 at 10:16; Status DC Insulin Human Lispro (HumaLOG) 20 units 1X ONCE SQ Last administered on 2at 17:28; Start 10/19/21 at 15:15; Stop 10/19/21 at 15:16; Status DC Insulin Glargine (Lantus Syringe) 25 unit BID SQ Last administered on 10/20/21at 09:00; Start 10/19/21 at 21:00 Fentanyl Citrate 30 ml @ 2.5 mls/hr CONT PRN IV SEE PROTOCOL Last administered on 10/19/21at 23:12; Start 10/19/21 at 22:45; Stop 10/20/21 at 05:30; Status DC Midazolam HCl 100 ml @ 1 mls/hr CONT PRN IV SEE PROTOCOL Last administered on 10/20/21at 11:47; Start 10/19/21 at 22:45 Vecuronium [place] (Norcuron Bolus) 6 mg PRN 1X PRN IV VENT INDUCTION Last administered on 10/20/21at 00:13; Start 10/19/21 at 22:45; Stop 10/20/21 at 00:14; Status DC Midazolam HCl (Versed) 5 mg PRN 1X PRN IVP VENT INDUCTION; Start 10/19/21 at 22:45; Stop 10/20/21 at 22:44 Succinylcholine Chloride (Anectine) 200 mg STK-MED ONCE .ROUTE ; Start 10/19/21 at 23:17; Stop 10/19/21 at 23:18; Status DC Etomidate (Amidate) 20 mg STK-MED ONCE IV ; Start 10/19/21 at 23:17; Stop 10/19/21 at 23:18; Status DC Vecuronium [place] (Norcuron Bolus) 6 mg PRN Q6HRS PRN IV VENTILATOR COMPLIANCE Last administered on 10/20/21at 10:22; Start 10/20/21 at 00:00 Fentanyl Citrate 55 ml @ 1 mls/hr CONT PRN IV PER PROTOCOL Last administered on 10/20/21at 05:19; Start 10/20/21 at 05:15 Aspirin (Aspirin Chewable) 81 mg DAILYWBKFT PO Last administered on 10/20/21at 07:28; Start 10/20/21 at 08:00 Famotidine (Pepcid Vial) 20 mg BID IVP Last administered on 10/20/21at 08:59; Start 10/20/21 at 09:00 Active Scripts Active Reported Lipitor (Atorvastatin Calcium) 10 Mg Tablet 1 Tab PO QHS Lisinopril 20 Mg Tablet 1 Tab PO DAILY Metformin Hcl 500 Mg Tablet 1 Tab PO BID Vitals/I & O Vital Sign - Last 24 Hours 10/19/21 10/19/21 10/19/21 10/19/21 15:00 15:41 16:00 16:49 Pulse 55 59 Resp 34 30 B/P (MAP) 92/64 96/62 Pulse Ox 95 92 88 93 O2 Delivery BiPAP/CPAP BiPAP/CPAP BiPAP/CPAP BiPAP/CPAP 10/19/21 10/19/21 10/19/21 10/19/21 17:00 18:00 19:00 19:30 Temp 97.8 97.8 Pulse 57 58 58 Resp 28 28 35 B/P (MAP) 115/60 135/74 159/75 Pulse Ox 93 88 95 90 O2 Delivery BiPAP/CPAP BiPAP/CPAP BiPAP/CPAP BiPAP/CPAP 10/19/21 10/19/21 10/19/21 10/19/21 20:00 20:00 21:00 22:00 Pulse 121 60 60 Resp 35 35 40 B/P (MAP) 138/75 132/72 96/65 Pulse Ox 95 90 84 O2 Delivery BiPAP/CPAP Vapotherm BiPAP/CPAP BiPAP/CPAP O2 Flow Rate 40.0 10/19/21 10/19/21 10/19/21 10/19/21 22:25 23:00 23:00 23:12 Pulse 60 Resp 40 B/P (MAP) 100/56 Pulse Ox 88 93 84 84 O2 Delivery BiPAP/CPAP Ventilator BiPAP/CPAP O2 Flow Rate 40.0 10/19/21 10/20/21 10/20/21 10/20/21 23:42 00:01 00:01 01:00 Temp 98.2 98.2 Pulse 64 60 Resp 20 20 B/P (MAP) 176/97 87/54 Pulse Ox 95 95 91 O2 Delivery Ventilator Mechanical Ventilator Ventilator O2 Flow Rate 40.0 10/20/21 10/20/21 10/20/21 10/20/21 02:00 02:15 03:00 03:00 Pulse 66 66 62 Resp 20 20 20 B/P (MAP) 80/52 159/62 97/55 Pulse Ox 86 82 95 95 O2 Delivery Ventilator Ventilator Ventilator Ventilator 10/20/21 10/20/21 10/20/21 10/20/21 04:00 05:49 06:00 07:00 Temp 98.7 98.7 Pulse 64 62 64 Resp 20 20 21 B/P (MAP) 83/56 91/57 81/54 Pulse Ox 95 95 95 96 O2 Delivery Ventilator Ventilator Ventilator O2 Flow Rate 40.0 10/20/21 10/20/21 10/20/21 10/20/21 08:00 08:00 08:23 09:00 Temp 98.6 98.6 Pulse 64 64 Resp 22 20 B/P (MAP) 92/57 88/62 Pulse Ox 97 97 98 O2 Delivery Ventilator Mechanical Ventilator Ventilator Ventilator 10/20/21 10/20/21 10/20/21 10/20/21 10:00 11:00 11:46 12:00 Temp 98.7 98.7 Pulse 64 63 63 Resp 20 20 20 B/P (MAP) 97/57 92/55 90/57 Pulse Ox 98 99 97 97 O2 Delivery Ventilator Ventilator Ventilator Ventilator 10/20/21 10/20/21 10/20/21 10/20/21 13:00 14:00 14:06 14:30 Pulse 64 63 Resp 20 20 B/P (MAP) 87/54 90/55 78/47 Pulse Ox 96 95 95 O2 Delivery Ventilator Ventilator Ventilator Intake and Output 10/19/21 10/19/21 10/20/21 15:00 23:00 07:00 Intake Total 100 ml 947 ml 1406.1 ml Output Total 575 ml 675 ml 390 ml Balance -475 ml 272 ml 1016.1 ml Justifications for Admission Other Justification Chest pain. RONDA WOODSON MD Oct 20, 2021 14:44
[2021-10-20] MEDS: ATORVASTATIN CALCIUM 10 MG TABLET. PO SCH (20:31)
[2021-10-20] MEDS: ENOXAPARIN 40 MG/0.4 ML SYRINGE. SQ SCH (20:32)
[2021-10-21] VITALS (24 sets, daily range): BP systolic 76–96; BP diastolic 50–60
[2021-10-21] MEDS: DEXMEDETOMIDINE 400 MCG in IV NORMAL SALINE 100ML 96 ML IV PRN ×4 (04:18→23:55)
[2021-10-21] MEDS: MIDAZOLAM 100mg/100ml NS BAG 100 ML IV PRN ×2 (04:19→11:50)
[2021-10-21] MEDS: VECURONIUM BOLUS 10 MG VIAL. IV PRN ×2 (04:19→08:57)
[2021-10-21] MEDS: INSULIN LISPRO 300 UNITS/3 ML VIAL. SQ SCH ×5 (06:00→23:55)
[2021-10-21 07:47] LABS: BASE EXCESS ABG -2 mmol/L (-3-3); HCO3 ABG 27 mmol/L (21-28); SAT O2 ABG 83 % (92-99)
[2021-10-21 07:49] LABS: PCO2 ABG 60 mmHg (35-46); PO2 ABG 50 mmHg (65-108)
--- NOTE | 2021-10-21 08:21 | PDOC ---
PULMONARY PROGRESS NOTES DATE: 10/21/21 TIME: 08:18 Subjective Patient continues to be critically ill Currently on 8 of PEEP 100% FiO2 Requiring norepinephrine Vitals Vital Signs Date Time Temp Pulse Resp B/P (MAP) Pulse Ox O2 Delivery O2 Flow Rate FiO2 10/21/21 07:36 95 Ventilator 10/21/21 06:00 78 20 90/57 10/21/21 04:00 99.1 99.1 Lungs: Clear Abdomen: Soft, Non-tender Extremities: No Edema Skin: Warm, No Rashes Labs Laboratory Tests Test 10/19/21 11:19 10/19/21 17:21 10/19/21 22:25 10/20/21 01:15 Glucose (Fingerstick) 384 mg/dL (70-99) 372 mg/dL (70-99) 259 mg/dL (70-99) O2 Saturation 76 % (92-99) Arterial Blood pH 7.42 (7.35-7.45) Arterial Blood pCO2 at Patient Temp 30 mmHg (35-46) Arterial Blood pO2 at Patient Temp 43 mmHg (65-108) Arterial Blood HCO3 19 mmol/L (21-28) Arterial Blood Base Excess -4 mmol/L (-3-3) FiO2 100 Test 10/20/21 06:22 10/20/21 08:40 10/20/21 11:43 10/20/21 17:34 Glucose (Fingerstick) 237 mg/dL (70-99) 221 mg/dL (70-99) 213 mg/dL (70-99) White Blood Count 22.7 x10^3/uL (4.0-11.0) Red Blood Count 3.89 x10^6/uL (4.30-5.70) Hemoglobin 12.5 g/dL (13.0-17.5) Hematocrit 38.9 % (39.0-53.0) Mean Corpuscular Volume 100 fL (79-100) Mean Corpuscular Hemoglobin 32 pg (25-35) Mean Corpuscular Hemoglobin Concent 32 g/dL (31-37) Red Cell Distribution Width 13.2 % (11.5-14.5) Platelet Count 194 x10^3/uL (140-400) Neutrophils (%) (Auto) 96 % (31-73) Lymphocytes (%) (Auto) 2 % (24-48) Monocytes (%) (Auto) 2 % (0-9) Eosinophils (%) (Auto) 0 % (0-3) Basophils (%) (Auto) 0 % (0-3) Neutrophils # (Auto) 21.8 x10^3/uL (1.8-7.7) Lymphocytes # (Auto) 0.4 x10^3/uL (1.0-4.8) Monocytes # (Auto) 0.4 x10^3/uL (0.0-1.1) Eosinophils # (Auto) 0.0 x10^3/uL (0.0-0.7) Basophils # (Auto) 0.0 x10^3/uL (0.0-0.2) Segmented Neutrophils % 95 % (35-66) Band Neutrophils % 1 % (0-9) Lymphocytes % 2 % (24-48) Monocytes % 2 % (0-10) Platelet Estimate Adequate (ADEQUATE) O2 Saturation 87 % (92-99) Arterial Blood pH 7.27 (7.35-7.45) Arterial Blood pCO2 at Patient Temp 54 mmHg (35-46) Arterial Blood pO2 at Patient Temp 62 mmHg (65-108) Arterial Blood HCO3 24 mmol/L (21-28) Arterial Blood Base Excess -3 mmol/L (-3-3) FiO2 100 Sodium Level 136 mmol/L (136-145) Potassium Level 5.4 mmol/L (3.5-5.1) Chloride Level 101 mmol/L (98-107) Carbon Dioxide Level 28 mmol/L (21-32) Anion Gap 7 (6-14) Blood Urea Nitrogen 36 mg/dL (8-26) Creatinine 0.9 mg/dL (0.7-1.3) Estimated GFR (Cockcroft-Gault) 84.7 BUN/Creatinine Ratio 40 (6-20) Glucose Level 219 mg/dL (70-99) Calcium Level 7.5 mg/dL (8.5-10.1) Phosphorus Level 4.6 mg/dL (2.6-4.7) Magnesium Level 2.3 mg/dL (1.8-2.4) Total Bilirubin 0.2 mg/dL (0.2-1.0) Aspartate Amino Transf (AST/SGOT) 22 U/L (15-37) Alanine Aminotransferase (ALT/SGPT) 17 U/L (16-63) Alkaline Phosphatase 96 U/L (46-116) Total Protein 5.7 g/dL (6.4-8.2) Albumin 1.5 g/dL (3.4-5.0) Albumin/Globulin Ratio 0.4 (1.0-1.7) Test 10/21/21 00:29 10/21/21 06:14 10/21/21 06:49 10/21/21 07:40 Glucose (Fingerstick) 91 mg/dL (70-99) 65 mg/dL (70-99) 106 mg/dL (70-99) O2 Saturation 83 % (92-99) Arterial Blood pH 7.27 (7.35-7.45) Arterial Blood pCO2 at Patient Temp 60 mmHg (35-46) Arterial Blood pO2 at Patient Temp 50 mmHg (65-108) Arterial Blood HCO3 27 mmol/L (21-28) Arterial Blood Base Excess -2 mmol/L (-3-3) FiO2 100% vent Laboratory Tests Test 10/20/21 08:40 10/20/21 11:43 10/20/21 17:34 10/21/21 00:29 White Blood Count 22.7 x10^3/uL (4.0-11.0) Red Blood Count 3.89 x10^6/uL (4.30-5.70) Hemoglobin 12.5 g/dL (13.0-17.5) Hematocrit 38.9 % (39.0-53.0) Mean Corpuscular Volume 100 fL (79-100) Mean Corpuscular Hemoglobin 32 pg (25-35) Mean Corpuscular Hemoglobin Concent 32 g/dL (31-37) Red Cell Distribution Width 13.2 % (11.5-14.5) Platelet Count 194 x10^3/uL (140-400) Neutrophils (%) (Auto) 96 % (31-73) Lymphocytes (%) (Auto) 2 % (24-48) Monocytes (%) (Auto) 2 % (0-9) Eosinophils (%) (Auto) 0 % (0-3) Basophils (%) (Auto) 0 % (0-3) Neutrophils # (Auto) 21.8 x10^3/uL (1.8-7.7) Lymphocytes # (Auto) 0.4 x10^3/uL (1.0-4.8) Monocytes # (Auto) 0.4 x10^3/uL (0.0-1.1) Eosinophils # (Auto) 0.0 x10^3/uL (0.0-0.7) Basophils # (Auto) 0.0 x10^3/uL (0.0-0.2) Segmented Neutrophils % 95 % (35-66) Band Neutrophils % 1 % (0-9) Lymphocytes % 2 % (24-48) Monocytes % 2 % (0-10) Platelet Estimate Adequate (ADEQUATE) O2 Saturation 87 % (92-99) Arterial Blood pH 7.27 (7.35-7.45) Arterial Blood pCO2 at Patient Temp 54 mmHg (35-46) Arterial Blood pO2 at Patient Temp 62 mmHg (65-108) Arterial Blood HCO3 24 mmol/L (21-28) Arterial Blood Base Excess -3 mmol/L (-3-3) FiO2 100 Sodium Level 136 mmol/L (136-145) Potassium Level 5.4 mmol/L (3.5-5.1) Chloride Level 101 mmol/L (98-107) Carbon Dioxide Level 28 mmol/L (21-32) Anion Gap 7 (6-14) Blood Urea Nitrogen 36 mg/dL (8-26) Creatinine 0.9 mg/dL (0.7-1.3) Estimated GFR (Cockcroft-Gault) 84.7 BUN/Creatinine Ratio 40 (6-20) Glucose Level 219 mg/dL (70-99) Calcium Level 7.5 mg/dL (8.5-10.1) Phosphorus Level 4.6 mg/dL (2.6-4.7) Magnesium Level 2.3 mg/dL (1.8-2.4) Total Bilirubin 0.2 mg/dL (0.2-1.0) Aspartate Amino Transf (AST/SGOT) 22 U/L (15-37) Alanine Aminotransferase (ALT/SGPT) 17 U/L (16-63) Alkaline Phosphatase 96 U/L (46-116) Total Protein 5.7 g/dL (6.4-8.2) Albumin 1.5 g/dL (3.4-5.0) Albumin/Globulin Ratio 0.4 (1.0-1.7) Glucose (Fingerstick) 221 mg/dL (70-99) 213 mg/dL (70-99) 91 mg/dL (70-99) Test 10/21/21 06:14 10/21/21 06:49 10/21/21 07:40 Glucose (Fingerstick) 65 mg/dL (70-99) 106 mg/dL (70-99) O2 Saturation 83 % (92-99) Arterial Blood pH 7.27 (7.35-7.45) Arterial Blood pCO2 at Patient Temp 60 mmHg (35-46) Arterial Blood pO2 at Patient Temp 50 mmHg (65-108) Arterial Blood HCO3 27 mmol/L (21-28) Arterial Blood Base Excess -2 mmol/L (-3-3) FiO2 100% vent Medications Active Scripts Medications Dose Route/Sig Max Daily Dose Days Date Category Lipitor (Atorvastatin Calcium) 10 Mg Tablet 1 Tab PO QHS 10/10/21 Reported Lisinopril 20 Mg Tablet 1 Tab PO DAILY 08/11/14 Reported Metformin Hcl 500 Mg Tablet 1 Tab PO BID 08/11/14 Reported Impression . IMPRESSION: 1. Acute hypoxemic respiratory failure. Intubated 10/19, failed noninvasive ventilation 2. COVID-19 viral pneumonia/acute respiratory distress syndrome. 3. Possible bacterial pneumonia. 4. Chest pain, unstable angina, AMI ruled out 5. Hypertension. 6. Hyperlipidemia. 7. Type 2 diabetes. 7. Septic shock Plan . Updated 10/21 Arterial blood gas PO2 of 50, peak airway pressures between 27 and 30 Increase PEEP to 10 Discussed with RT and RN Prognosis is poor Finish course of remdesivir Finish dexamethasone Started on doxycycline and ceftriaxone CCT 30 minutes Updated 10/20 Continue current vent settings Repeat ABG pending Labs reviewed Patient continues to be critically ill Empiric antibiotics Received remdesivir Unable to diurese, blood pressure low Finished course of dexamethasone Monitor blood sugars CCT 30 minutes DELFIN FRANCO MD Oct 21, 2021 08:21
[2021-10-21] MEDS: LISINOPRIL 20 MG TABLET PO SCH (09:00)
[2021-10-21] MEDS: cefTRIAXone IV Push 1 GM VIAL. IVP SCH (09:01)
[2021-10-21] MEDS: ASPIRIN CHEWABLE 81 MG TABLET. PO SCH (09:02)
[2021-10-21] MEDS: FAMOTIDINE 20 MG/2 ML VIAL IVP SCH ×2 (09:02→20:36)
[2021-10-21] MEDS: LACTOBACILLUS RHAMNOSUS GG 1 CAPSULE. PO SCH ×2 (09:02→20:36)
[2021-10-21] MEDS: DOXYCYCLINE HYCLATE 100 MG in IV DEXTROSE 5% 100ML 100 ML IV SCH ×2 (09:04→20:36)
[2021-10-21 09:19] LABS: BASO # 0.1 x10^3/uL (0.0-0.2); BASO % 1 % (0-3); EOS # 0.1 x10^3/uL (0.0-0.7); EOS % 1 % (0-3); HEMATOCRIT 41.6 % (39.0-53.0); HEMOGLOBIN 13.8 g/dL (13.0-17.5); LYMPH % 4 % (24-48); MEAN CORPUSCULAR HEMOGLOBIN 33 pg (25-35); MEAN CORPUSCULAR HGB CONC 33 g/dL (31-37); MEAN CORPUSCULAR VOLUME 100 fL (79-100); MONO # 0.8 x10^3/uL (0.0-1.1); MONO % 3 % (0-9); NEUT % 91 % (31-73); PLATELET COUNT 147 x10^3/uL (140-400); RED BLOOD COUNT 4.18 x10^6/uL (4.30-5.70); RED CELL DISTRIBUTION WIDTH 13.3 % (11.5-14.5)
[2021-10-21] MEDS: ACETAMINOPHEN 325 MG TABLET. PO PRN ×2 (10:29→17:14)
[2021-10-21] MEDS: INSULIN GLARGINE SYRINGE. SQ SCH ×2 (10:30→20:37)
--- NOTE | 2021-10-21 10:39 | PDOC ---
[facility] PROGRESS NOTE Date of Service DOS: DATE: 10/21/21 TIME: 10:35 Chief Complaint Chief Complaint COVID -19 pneumonia, ARDS, acute hypoxic respiratory failure on vent sepsis, severe sepsis admit for Atypical chest pain, rule out ACS Acute electrolyte derangementhyponatremia, hypochloremia suggestive of volume depletion COVID-19 infection Hyperglycemia Thrombocytopenia History of type 2 diabetes mellitus History of hypertension History of dyslipidemia obese, BMI 36 History of Present Illness History of Present Illness 10/21 Patient evaluated examined at bedside. Still remains on ventilator and sedated. He was PEEP. Patient also requiring Levophed for blood pressure support. Continue antibiotics. Has finished steroids and remdesivir. 33 minutes critical care time 10/20, on vent, has declined, discussed with - 18 minutes by phone of advanced care planning cont current prognosis poor now no vent s/p 10 days steroids blood sugar is better 10/19, to ICU overnight, vapotherm and bipap 100% to maintain calm, diong OK, PULM and CV following 10/18: Requiring nearly continuous BiPAP with supplemental Vapotherm 40 L/min percent FiO2 little drowsy today weak. Discussed with his . He is consentable to further interventions such as intubation Regonol is maintaining O2 saturations 92%. 2: Further to desaturations as supplemental BiPAP in addition to Vapotherm 40 L/min 100% FiO2. He is able to converse. He does not want to be intubated if he would have a prolonged stay on the ventilator and is asked if his can be updated. NA 130. Not eating. PICC line for TPN 10/16: Seen bedside on her percent FiO2 Vapotherm 40 L/min with supplemental facemask O2. Chest radiograph with poor inspiratory effort. Is still gets relatively significant desaturations. Counseled on incentive spirometer and severity of his disease. Sodium is 131 today he says he is eating 10/15: ABG 7.5 01/09/63 on 100% FiO2 Vapotherm 40 L/min with supplemental facemask O2. Seen bedside. Complains of rhinitis and try to get up to use urinal and desats into the low 80s with this. Counseled maintain his Vapotherm. Complains of pain behind his ear 10/14: Seen bedside. On 40 L/min 100% FiO2 with supplemental facemask. Has a little bit of an appetite. Significant desaturations with movement. No chest pain. Still short of breath with cough. Cardiac cath plans canceled. 10/13: Evaluated examined at bedside. Shortness of breath is a little bit worse and oxygenation has increased a little bit. Add on remdesivir today add doxycycline. 10/12: Evaluated and examined at bedside. Had just gotten back from bathroom a little SOB on increased O2 setting to sat back up but back up in 90's when seen. 10/11: Evaluate examined at bedside. Resting in bed. Understands this plan for procedure Thursday. Continuing COVID treatment. Plan discussed with bedside RN. 10/10: Patient evaluate examined at bedside. Was resting in bed really coughing. Informed of reason procedure pushed to Thursday with Covid positive. He understood well. Will start dexamethasone and Rocephin for Covid positivity. Rocephin cover any bacterial pneumonias. As needed cough medicine. If he starts require oxygen can start remdesivir then. Otherwise continue to follow. Up ad felicity. Vitals/I&O Vitals/I&O: Vital Signs Date Time Temp Pulse Resp B/P (MAP) Pulse Ox O2 Delivery O2 Flow Rate FiO2 10/21/21 08:19 94 Ventilator 10/21/21 06:00 78 20 90/57 10/21/21 04:00 99.1 99.1 I & O 10/20/21 10/20/21 10/21/21 15:00 23:00 07:00 Intake Total 100 ml 1237 ml 726 ml Output Total 600 ml 600 ml 175 ml Balance -500 ml 637 ml 551 ml Physical Exam General: Alert, Oriented X3, Cooperative, No acute distress Heart: Regular rate, Normal S1, Normal S2, No murmurs Lungs: Clear Abdomen: Soft, No tenderness, Other (truncakl obesity) Extremities: No cyanosis, No edema Skin: No breakdown, No significant lesion Labs Labs: Laboratory Tests Test 10/20/21 11:43 10/20/21 17:34 10/21/21 00:29 10/21/21 06:14 Glucose (Fingerstick) 221 mg/dL (70-99) 213 mg/dL (70-99) 91 mg/dL (70-99) 65 mg/dL (70-99) Test 10/21/21 06:49 10/21/21 07:40 10/21/21 08:10 10/21/21 10:24 Glucose (Fingerstick) 106 mg/dL (70-99) 155 mg/dL (70-99) O2 Saturation 83 % (92-99) Arterial Blood pH 7.27 (7.35-7.45) Arterial Blood pCO2 at Patient Temp 60 mmHg (35-46) Arterial Blood pO2 at Patient Temp 50 mmHg (65-108) Arterial Blood HCO3 27 mmol/L (21-28) Arterial Blood Base Excess -2 mmol/L (-3-3) FiO2 100% vent White Blood Count 23.0 x10^3/uL (4.0-11.0) Red Blood Count 4.18 x10^6/uL (4.30-5.70) Hemoglobin 13.8 g/dL (13.0-17.5) Hematocrit 41.6 % (39.0-53.0) Mean Corpuscular Volume 100 fL (79-100) Mean Corpuscular Hemoglobin 33 pg (25-35) Mean Corpuscular Hemoglobin Concent 33 g/dL (31-37) Red Cell Distribution Width 13.3 % (11.5-14.5) Platelet Count 147 x10^3/uL (140-400) Neutrophils (%) (Auto) 91 % (31-73) Lymphocytes (%) (Auto) 4 % (24-48) Monocytes (%) (Auto) 3 % (0-9) Eosinophils (%) (Auto) 1 % (0-3) Basophils (%) (Auto) 1 % (0-3) Neutrophils # (Auto) 21.0 x10^3/uL (1.8-7.7) Lymphocytes # (Auto) 1.0 x10^3/uL (1.0-4.8) Monocytes # (Auto) 0.8 x10^3/uL (0.0-1.1) Eosinophils # (Auto) 0.1 x10^3/uL (0.0-0.7) Basophils # (Auto) 0.1 x10^3/uL (0.0-0.2) Assessment and Plan Assessmemt and Plan Problems Medical Problems: (1) Chest pain Status: Acute (2) Fever Status: Acute (3) Lab test positive for detection of COVID-19 virus Status: Acute Comment Review of Relevant I have reviewed the following items bo (where applicable) has been applied. Medications: Current Medications Medications (Trade) Dose Ordered Sig/Jodi Route PRN Reason Start Time Stop Time Status Last Admin Dose Admin Vecuronium Eighty Eight (Norcuron Bolus) 6 mg PRN Q2HR PRN IV VENTILATOR COMPLIANCE 10/20/21 16:30 10/21/21 08:57 Justifications for Admission Other Justification Chest pain. NIKOLAI STANLEY MD Oct 21, 2021 10:39
[2021-10-21] MEDS: fentaNYL HIGH DOSE PCA 55 ML IV PRN (11:51)
[2021-10-21] MEDS: NOREPINEPHRINE VIAL 8 MG in IV DEXTROSE 5% 250 ML IV PRN ×2 (11:52→23:56)
[2021-10-21 12:13] LABS: ALBUMIN 1.3 g/dL (3.4-5.0); ALBUMIN/GLOBULIN RATIO 0.3 (1.0-1.7); CALCIUM 7.5 mg/dL (8.5-10.1); CREATININE 0.9 mg/dL (0.7-1.3); GFR 84.7; POTASSIUM 5.3 mmol/L (3.5-5.1); TOTAL BILIRUBIN 0.5 mg/dL (0.2-1.0); TOTAL PROTEIN 6.2 g/dL (6.4-8.2)
--- NOTE | 2021-10-21 13:07 | PDOC ---
PROGRESS NOTES Date of Service: DATE: 10/21/21 TIME: 13:07 Subjective Subjective Remains intubated, needing pressor support on 8 of PEEP with 100% FiO2 Objective Objective Vital Signs Date Time Temp Pulse Resp B/P (MAP) Pulse Ox O2 Delivery O2 Flow Rate FiO2 10/21/21 11:51 97 40.0 10/21/21 11:35 Ventilator 10/21/21 06:00 78 20 90/57 10/21/21 04:00 99.1 99.1 Intake and Output 10/21/21 07:00 Intake Total 2063 ml Output Total 1375 ml Balance 688 ml IV Total 1663 ml Tube Feeding 400 ml Output Urine Total 1375 ml Physical Exam Abdomen: Soft, No tenderness, Other (truncakl obesity) Heart: Regular rate, Normal S1, Normal S2, No murmurs Extremities: No cyanosis, No edema General: Cooperative, Other (Intubated and sedated) HEENT: Other (Intubated and sedated) Lungs: Other (Bilateral scattered crepitations) Skin: No significant lesion Assessment Assessment 1. Chest pain; unstable angina, AMI ruled out. Telemetry did not show any significant arrhythmias. 2 Acute respiratory failure secondary to COVID PNA, critically ill, s/p intubation, completed steroids and remdesivir 4. HLP 5. DM2 6. Strong family hx of CAD 7. Morbid obesity Recommendations Continue ASA, statin, intravenous antibiotics Continue current treatment of COVID PNA and vent management per pulmonary team Supportive care for now and plan for cardiac cath once covid recovered Plan Plan of Care Problems Medical Problems: (1) Chest pain Status: Acute (2) Fever Status: Acute (3) Lab test positive for detection of COVID-19 virus Status: Acute Comment Review of Relevant I have reviewed the following items bo (where applicable) has been applied. Labs Laboratory Tests Test 10/20/21 17:34 10/21/21 00:29 10/21/21 06:14 10/21/21 06:49 Glucose (Fingerstick) 213 mg/dL (70-99) 91 mg/dL (70-99) 65 mg/dL (70-99) 106 mg/dL (70-99) Test 10/21/21 07:40 10/21/21 08:10 10/21/21 10:24 O2 Saturation 83 % (92-99) Arterial Blood pH 7.27 (7.35-7.45) Arterial Blood pCO2 at Patient Temp 60 mmHg (35-46) Arterial Blood pO2 at Patient Temp 50 mmHg (65-108) Arterial Blood HCO3 27 mmol/L (21-28) Arterial Blood Base Excess -2 mmol/L (-3-3) FiO2 100% vent White Blood Count 23.0 x10^3/uL (4.0-11.0) Red Blood Count 4.18 x10^6/uL (4.30-5.70) Hemoglobin 13.8 g/dL (13.0-17.5) Hematocrit 41.6 % (39.0-53.0) Mean Corpuscular Volume 100 fL (79-100) Mean Corpuscular Hemoglobin 33 pg (25-35) Mean Corpuscular Hemoglobin Concent 33 g/dL (31-37) Red Cell Distribution Width 13.3 % (11.5-14.5) Platelet Count 147 x10^3/uL (140-400) Neutrophils (%) (Auto) 91 % (31-73) Lymphocytes (%) (Auto) 4 % (24-48) Monocytes (%) (Auto) 3 % (0-9) Eosinophils (%) (Auto) 1 % (0-3) Basophils (%) (Auto) 1 % (0-3) Neutrophils # (Auto) 21.0 x10^3/uL (1.8-7.7) Lymphocytes # (Auto) 1.0 x10^3/uL (1.0-4.8) Monocytes # (Auto) 0.8 x10^3/uL (0.0-1.1) Eosinophils # (Auto) 0.1 x10^3/uL (0.0-0.7) Basophils # (Auto) 0.1 x10^3/uL (0.0-0.2) Sodium Level 137 mmol/L (136-145) Potassium Level 5.3 mmol/L (3.5-5.1) Chloride Level 102 mmol/L (98-107) Carbon Dioxide Level 31 mmol/L (21-32) Anion Gap 4 (6-14) Blood Urea Nitrogen 33 mg/dL (8-26) Creatinine 0.9 mg/dL (0.7-1.3) Estimated GFR (Cockcroft-Gault) 84.7 BUN/Creatinine Ratio 37 (6-20) Glucose Level 125 mg/dL (70-99) Calcium Level 7.5 mg/dL (8.5-10.1) Total Bilirubin 0.5 mg/dL (0.2-1.0) Aspartate Amino Transf (AST/SGOT) 17 U/L (15-37) Alanine Aminotransferase (ALT/SGPT) 11 U/L (16-63) Alkaline Phosphatase 87 U/L (46-116) Total Protein 6.2 g/dL (6.4-8.2) Albumin 1.3 g/dL (3.4-5.0) Albumin/Globulin Ratio 0.3 (1.0-1.7) Glucose (Fingerstick) 155 mg/dL (70-99) Microbiology 10/09/21 Blood Culture - Final, Complete NO GROWTH AFTER 5 DAYS Medications Current Medications Vecuronium Hunter (Norcuron Bolus) 6 mg PRN Q2HR PRN IV VENTILATOR COMPLIANCE Last administered on 10/21/21at 08:57; Start 10/20/21 at 16:30 Vitals/I & O Vital Sign - Last 24 Hours 10/20/21 10/20/21 10/20/21 10/20/21 14:00 14:06 14:30 14:45 Pulse 63 Resp 20 B/P (MAP) 90/55 78/47 99/50 Pulse Ox 95 95 O2 Delivery Ventilator Ventilator 10/20/21 10/20/21 10/20/21 10/20/21 15:00 15:32 16:00 17:00 Temp 98.7 98.7 Pulse 61 63 63 Resp 22 20 20 B/P (MAP) 108/60 103/56 95/51 Pulse Ox 97 96 96 97 O2 Delivery Ventilator Ventilator Ventilator Ventilator 10/20/21 10/20/21 10/20/21 10/20/21 17:54 18:00 19:00 20:00 Temp 99.5 99.5 Pulse 65 66 67 Resp 20 20 20 B/P (MAP) 89/49 95/53 91/53 Pulse Ox 97 97 97 98 O2 Delivery Ventilator Ventilator Ventilator Ventilator 10/20/21 10/20/21 10/20/21 10/20/21 20:00 20:00 20:45 21:00 Pulse 68 69 Resp 20 20 B/P (MAP) 78/48 91/55 Pulse Ox 98 97 98 O2 Delivery Mechanical Ventilator Ventilator Ventilator Ventilator 10/20/21 10/20/21 10/21/21 10/21/21 22:00 23:00 00:00 00:00 Temp 98.9 98.9 Pulse 69 69 72 Resp 20 20 20 B/P (MAP) 86/59 92/58 91/59 Pulse Ox 98 98 98 98 O2 Delivery Ventilator Ventilator Ventilator Ventilator 10/21/21 10/21/21 10/21/21 10/21/21 01:00 02:00 03:00 03:00 Pulse 74 77 76 Resp 20 20 20 B/P (MAP) 87/56 90/54 84/57 Pulse Ox 98 95 95 95 O2 Delivery Ventilator Ventilator Ventilator Ventilator 10/21/21 10/21/21 10/21/21 10/21/21 04:00 05:00 06:00 07:36 Temp 99.1 99.1 Pulse 76 78 78 Resp 20 20 20 B/P (MAP) 77/56 82/51 90/57 Pulse Ox 95 97 96 95 O2 Delivery Ventilator Ventilator Ventilator Ventilator 10/21/21 10/21/21 10/21/21 10/21/21 08:00 08:19 11:35 11:51 Pulse Ox 94 97 97 O2 Delivery Mechanical Ventilator Ventilator Ventilator O2 Flow Rate 40.0 Intake and Output 10/20/21 10/20/21 10/21/21 15:00 23:00 07:00 Intake Total 100 ml 1237 ml 726 ml Output Total 600 ml 600 ml 175 ml Balance -500 ml 637 ml 551 ml KIYA PICKETT MD Oct 21, 2021 13:07
--- NOTE | 2021-10-21 15:44 | NUR ---
SS following up with discharge planning. SS reviewed pt chart and discussed with pt RN. Pt is currently on the vent at 100%. COVID19 positive. Pt on Versed, Precedex, Fentanyl, and Levophed. Pt on IV Rocephin and IV Doxycycline. Not stable. SS will continue to follow for discharge planning.
[2021-10-21] MEDS: ENOXAPARIN 40 MG/0.4 ML SYRINGE. SQ SCH (20:36)
[2021-10-21] MEDS: ATORVASTATIN CALCIUM 10 MG TABLET. PO SCH (20:36)
[2021-10-22] VITALS (25 sets, daily range): BP systolic 39–126; BP diastolic 26–76
[2021-10-22] MEDS: DEXMEDETOMIDINE 400 MCG in IV NORMAL SALINE 100ML 96 ML IV PRN ×3 (04:42→18:18)
[2021-10-22] MEDS: MIDAZOLAM 100mg/100ml NS BAG 100 ML IV PRN ×2 (04:47→14:32)
[2021-10-22] MEDS: VECURONIUM BOLUS 10 MG VIAL. IV PRN ×4 (04:49→18:14)
[2021-10-22] MEDS: INSULIN LISPRO 300 UNITS/3 ML VIAL. SQ SCH ×4 (06:15→23:28)
[2021-10-22 07:01] LABS: ALBUMIN 1.1 g/dL (3.4-5.0); ALBUMIN/GLOBULIN RATIO 0.3 (1.0-1.7); CREATININE 1.8 mg/dL (0.7-1.3); GFR 38.1; POTASSIUM 5.6 mmol/L (3.5-5.1); TOTAL BILIRUBIN 0.4 mg/dL (0.2-1.0)
[2021-10-22] MEDS: LACTOBACILLUS RHAMNOSUS GG 1 CAPSULE. PO SCH ×2 (08:23→21:00)
[2021-10-22] MEDS: ASPIRIN CHEWABLE 81 MG TABLET. PO SCH (08:23)
[2021-10-22] MEDS: DOXYCYCLINE HYCLATE 100 MG in IV DEXTROSE 5% 100ML 100 ML IV SCH ×2 (08:26→23:04)
[2021-10-22] MEDS: NOREPINEPHRINE VIAL 8 MG in IV DEXTROSE 5% 250 ML IV PRN ×2 (08:27→16:53)
[2021-10-22] MEDS: cefTRIAXone IV Push 1 GM VIAL. IVP SCH (08:28)
[2021-10-22] MEDS: LISINOPRIL 20 MG TABLET PO SCH (08:28)
[2021-10-22 08:36] LABS: BASE EXCESS ABG -3 mmol/L (-3-3); HCO3 ABG 27 mmol/L (21-28); SAT O2 ABG 74 % (92-99)
[2021-10-22] MEDS: INSULIN GLARGINE SYRINGE. SQ SCH ×2 (08:46→23:00)
[2021-10-22 08:55] LABS: PCO2 ABG 71 mmHg (35-46); PO2 ABG < 42 mmHg (65-108)
[2021-10-22 08:57] LABS: FIO2 ABG 100% AC 20 500 10
--- NOTE | 2021-10-22 08:58 | PDOC ---
PULMONARY PROGRESS NOTES DATE: 10/22/21 TIME: 08:58 Subjective Patient continues to be critically ill Currently on 8 of PEEP 100% FiO2 Requiring norepinephrine Vitals Vital Signs Date Time Temp Pulse Resp B/P (MAP) Pulse Ox O2 Delivery O2 Flow Rate FiO2 10/22/21 08:24 87 Ventilator 10/22/21 06:00 66 20 94/48 10/22/21 04:00 99.5 99.5 10/21/21 12:21 40.0 Lungs: Clear Abdomen: Soft, Non-tender Extremities: No Edema Skin: Warm, No Rashes Labs Laboratory Tests Test 10/20/21 11:43 10/20/21 17:34 10/21/21 00:29 10/21/21 06:14 Glucose (Fingerstick) 221 mg/dL (70-99) 213 mg/dL (70-99) 91 mg/dL (70-99) 65 mg/dL (70-99) Test 10/21/21 06:49 10/21/21 07:40 10/21/21 08:10 10/21/21 10:24 Glucose (Fingerstick) 106 mg/dL (70-99) 155 mg/dL (70-99) O2 Saturation 83 % (92-99) Arterial Blood pH 7.27 (7.35-7.45) Arterial Blood pCO2 at Patient Temp 60 mmHg (35-46) Arterial Blood pO2 at Patient Temp 50 mmHg (65-108) Arterial Blood HCO3 27 mmol/L (21-28) Arterial Blood Base Excess -2 mmol/L (-3-3) FiO2 100% vent White Blood Count 23.0 x10^3/uL (4.0-11.0) Red Blood Count 4.18 x10^6/uL (4.30-5.70) Hemoglobin 13.8 g/dL (13.0-17.5) Hematocrit 41.6 % (39.0-53.0) Mean Corpuscular Volume 100 fL (79-100) Mean Corpuscular Hemoglobin 33 pg (25-35) Mean Corpuscular Hemoglobin Concent 33 g/dL (31-37) Red Cell Distribution Width 13.3 % (11.5-14.5) Platelet Count 147 x10^3/uL (140-400) Neutrophils (%) (Auto) 91 % (31-73) Lymphocytes (%) (Auto) 4 % (24-48) Monocytes (%) (Auto) 3 % (0-9) Eosinophils (%) (Auto) 1 % (0-3) Basophils (%) (Auto) 1 % (0-3) Neutrophils # (Auto) 21.0 x10^3/uL (1.8-7.7) Lymphocytes # (Auto) 1.0 x10^3/uL (1.0-4.8) Monocytes # (Auto) 0.8 x10^3/uL (0.0-1.1) Eosinophils # (Auto) 0.1 x10^3/uL (0.0-0.7) Basophils # (Auto) 0.1 x10^3/uL (0.0-0.2) Sodium Level 137 mmol/L (136-145) Potassium Level 5.3 mmol/L (3.5-5.1) Chloride Level 102 mmol/L (98-107) Carbon Dioxide Level 31 mmol/L (21-32) Anion Gap 4 (6-14) Blood Urea Nitrogen 33 mg/dL (8-26) Creatinine 0.9 mg/dL (0.7-1.3) Estimated GFR (Cockcroft-Gault) 84.7 BUN/Creatinine Ratio 37 (6-20) Glucose Level 125 mg/dL (70-99) Calcium Level 7.5 mg/dL (8.5-10.1) Total Bilirubin 0.5 mg/dL (0.2-1.0) Aspartate Amino Transf (AST/SGOT) 17 U/L (15-37) Alanine Aminotransferase (ALT/SGPT) 11 U/L (16-63) Alkaline Phosphatase 87 U/L (46-116) Total Protein 6.2 g/dL (6.4-8.2) Albumin 1.3 g/dL (3.4-5.0) Albumin/Globulin Ratio 0.3 (1.0-1.7) Test 10/21/21 17:22 10/21/21 23:54 10/22/21 05:39 10/22/21 06:10 Glucose (Fingerstick) 195 mg/dL (70-99) 221 mg/dL (70-99) 204 mg/dL (70-99) Sodium Level 134 mmol/L (136-145) Potassium Level 5.6 mmol/L (3.5-5.1) Chloride Level 100 mmol/L (98-107) Carbon Dioxide Level 28 mmol/L (21-32) Anion Gap 6 (6-14) Blood Urea Nitrogen 62 mg/dL (8-26) Creatinine 1.8 mg/dL (0.7-1.3) Estimated GFR (Cockcroft-Gault) 38.1 BUN/Creatinine Ratio 34 (6-20) Glucose Level 281 mg/dL (70-99) Calcium Level 7.0 mg/dL (8.5-10.1) Total Bilirubin 0.4 mg/dL (0.2-1.0) Aspartate Amino Transf (AST/SGOT) 54 U/L (15-37) Alanine Aminotransferase (ALT/SGPT) 38 U/L (16-63) Alkaline Phosphatase 85 U/L (46-116) Total Protein 5.0 g/dL (6.4-8.2) Albumin 1.1 g/dL (3.4-5.0) Albumin/Globulin Ratio 0.3 (1.0-1.7) Test 10/22/21 08:00 O2 Saturation 74 % (92-99) Arterial Blood pH 7.19 (7.35-7.45) Arterial Blood pCO2 at Patient Temp 71 mmHg (35-46) Arterial Blood pO2 at Patient Temp < 42 mmHg (65-108) Arterial Blood HCO3 27 mmol/L (21-28) Arterial Blood Base Excess -3 mmol/L (-3-3) FiO2 100% ac 20 500 10 Laboratory Tests Test 10/21/21 10:24 10/21/21 17:22 10/21/21 23:54 10/22/21 05:39 Glucose (Fingerstick) 155 mg/dL (70-99) 195 mg/dL (70-99) 221 mg/dL (70-99) 204 mg/dL (70-99) Test 10/22/21 06:10 10/22/21 08:00 Sodium Level 134 mmol/L (136-145) Potassium Level 5.6 mmol/L (3.5-5.1) Chloride Level 100 mmol/L (98-107) Carbon Dioxide Level 28 mmol/L (21-32) Anion Gap 6 (6-14) Blood Urea Nitrogen 62 mg/dL (8-26) Creatinine 1.8 mg/dL (0.7-1.3) Estimated GFR (Cockcroft-Gault) 38.1 BUN/Creatinine Ratio 34 (6-20) Glucose Level 281 mg/dL (70-99) Calcium Level 7.0 mg/dL (8.5-10.1) Total Bilirubin 0.4 mg/dL (0.2-1.0) Aspartate Amino Transf (AST/SGOT) 54 U/L (15-37) Alanine Aminotransferase (ALT/SGPT) 38 U/L (16-63) Alkaline Phosphatase 85 U/L (46-116) Total Protein 5.0 g/dL (6.4-8.2) Albumin 1.1 g/dL (3.4-5.0) Albumin/Globulin Ratio 0.3 (1.0-1.7) O2 Saturation 74 % (92-99) Arterial Blood pH 7.19 (7.35-7.45) Arterial Blood pCO2 at Patient Temp 71 mmHg (35-46) Arterial Blood pO2 at Patient Temp < 42 mmHg (65-108) Arterial Blood HCO3 27 mmol/L (21-28) Arterial Blood Base Excess -3 mmol/L (-3-3) FiO2 100% ac 20 500 10 Medications Active Scripts Medications Dose Route/Sig Max Daily Dose Days Date Category Lipitor (Atorvastatin Calcium) 10 Mg Tablet 1 Tab PO QHS 10/10/21 Reported Lisinopril 20 Mg Tablet 1 Tab PO DAILY 08/11/14 Reported Metformin Hcl 500 Mg Tablet 1 Tab PO BID 08/11/14 Reported Impression . IMPRESSION: 1. Acute hypoxemic respiratory failure. Intubated 10/19, failed noninvasive ventilation 2. COVID-19 viral pneumonia/acute respiratory distress syndrome. 3. Possible bacterial pneumonia. 4. Chest pain, unstable angina, AMI ruled out 5. Hypertension. 6. Hyperlipidemia. 7. Type 2 diabetes. 7. Septic shock Plan . Updated 10/21 Arterial blood gas PO2 of 50, peak airway pressures between 27 and 30 Increase PEEP to 10 Discussed with RT and RN Prognosis is poor Finish course of remdesivir Finish dexamethasone Started on doxycycline and ceftriaxone CCT 30 minutes Updated 10/20 Continue current vent settings Repeat ABG pending Labs reviewed Patient continues to be critically ill Empiric antibiotics Received remdesivir Unable to diurese, blood pressure low Finished course of dexamethasone Monitor blood sugars CCT 30 minutes DELFIN FRANCO MD Oct 22, 2021 08:58
[2021-10-22] MEDS ORDERED: FAMOTIDINE 20 MG/2 ML VIAL IVP SCH (09:00)
--- NOTE | 2021-10-22 09:05 | PDOC ---
CHAITANYA LANZA [employer] 10/22/21 0905: CARDIO Progress Notes Date and Time Date of Service 10/22/2021 Time of Evaluation 0840 Subjective Subjective: Other (intubated) Vitals Vitals Vital Signs Date Time Temp Pulse Resp B/P (MAP) Pulse Ox O2 Delivery O2 Flow Rate FiO2 10/22/21 08:24 87 Ventilator 10/22/21 06:00 66 20 94/48 10/22/21 04:00 99.5 99.5 10/21/21 12:21 40.0 Weight Weight [ ] Input and Output Intake and Output Intake and Output 10/22/21 07:00 Intake Total 3517 ml Output Total 775 ml Balance 2742 ml IV Total 2082 ml Tube Feeding 1135 ml Other 300 ml Output Urine Total 775 ml Laboratory Labs Laboratory Tests Test 10/21/21 10:24 10/21/21 17:22 10/21/21 23:54 10/22/21 05:39 Glucose (Fingerstick) 155 mg/dL (70-99) 195 mg/dL (70-99) 221 mg/dL (70-99) 204 mg/dL (70-99) Test 10/22/21 06:10 Sodium Level 134 mmol/L (136-145) Potassium Level 5.6 mmol/L (3.5-5.1) Chloride Level 100 mmol/L (98-107) Carbon Dioxide Level 28 mmol/L (21-32) Anion Gap 6 (6-14) Blood Urea Nitrogen 62 mg/dL (8-26) Creatinine 1.8 mg/dL (0.7-1.3) Estimated GFR (Cockcroft-Gault) 38.1 BUN/Creatinine Ratio 34 (6-20) Glucose Level 281 mg/dL (70-99) Calcium Level 7.0 mg/dL (8.5-10.1) Total Bilirubin 0.4 mg/dL (0.2-1.0) Aspartate Amino Transf (AST/SGOT) 54 U/L (15-37) Alanine Aminotransferase (ALT/SGPT) 38 U/L (16-63) Alkaline Phosphatase 85 U/L (46-116) Total Protein 5.0 g/dL (6.4-8.2) Albumin 1.1 g/dL (3.4-5.0) Albumin/Globulin Ratio 0.3 (1.0-1.7) Microbiology Micro Microbiology 10/09/21 Blood Culture - Final, Complete NO GROWTH AFTER 5 DAYS Physical Exam HEENT: Neck Supple W Full Motion Chest: Symmetric LUNGS: Other (intubated with MV) Heart: RRR (SR) Abdomen: Other (obese) Extremities: No Edema Neurology: other (sedated) Assessment Assessment 1. Chest pain; unstable angina, AMI ruled out. Telemetry did not show any significant arrhythmias. 2 Acute respiratory failure secondary to COVID PNA, critically ill, s/p intubation, completed steroids and remdesivir 4. HLP 5. DM2 6. Strong family hx of CAD 7. Morbid obesity 8. GRACIELA with possible ATN 9. Sepsis/shock: per PCP Recommendations Continue ASA, statin, intravenous antibiotics. Continue levophed Continue current treatment of COVID PNA and vent management per pulmonary team Supportive care for now and plan for cardiac cath once covid recovered Obtain UA. Repeat BMP if K remains elevated then reversal agents. IVF bolus. Consult nephrology DC lisinopril Justicifation of Admission Dx: Justifications for Admission: Justification of Admission Dx: Yes KIYA PICKETT MD 10/22/211941: CARDIO Progress Notes Assessment Assessment Patient seen and examined. Agree with [employer]'s assessment and plan as stated above. Guarded prognosis. CHAITANYA LANZA APRN Oct 22, 2021 09:05 KIYA PICKETT MD Oct 22, 2021 19:42
[2021-10-22] MEDS ORDERED: IV NORMAL SALINE 500ML BAG 500 ML IV ONE (09:15)
[2021-10-22 10:12] LABS: BILIRUBIN,URINE NEGATIVE (NEG); CLARITY,URINE CLOUDY; COLOR,URINE YELLOW; NITRITE,URINE NEGATIVE (NEG); PROTEIN,URINE NEGATIVE (NEG-TRACE); UROBILINOGEN,URINE 0.2 mg/dL (0.2 mg/dL)
[2021-10-22 10:20] LABS: AMORPHOUS SEDIMENT,UR PRESENT /HPF; HYALINE CASTS, URINE FEW /HPF
[2021-10-22 10:21] LABS: BACTERIA,URINE FEW /HPF (0-FEW); RBC,URINE 0 /HPF (0-2)
--- NOTE | 2021-10-22 10:55 | PDOC2 ---
CONSULT Date of Consult Date of Consult DATE: 10/22/21 TIME: 10:46 Reason for Consult Reason for Consult: GRACIELA Referring Physician Referring Physician: EMILY Identification/Chief Complaint Chief Complaint SOB Source Source: Chart review History of Present Illness Reason for Visit: THIS IS A 66 YR OLD WITH SOB AND NOW ON THE VENT. DX WITH COVID 19 VIRAL PNEUMONIA AND NEEDING FIO2 100%. NO KNOW CKD. HEMODYNAMICALLY UNSTABLE NEEDING PRESSORS. UA DONE TODAY UNREMARKABLE FOR ANY NEPHRITIS. CR OF 1.8 TODAY WITH DECREASING UO AND HYPERKALEMIA. 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 RENAL CONSULT DUE TO ABOVE. HAS UNDERLYING DM II AND HTN HX. Past Medical History Cardiovascular: HTN, Hyperlipidemia GI: Hemorrhoids Musculoskeletal: Osteoarthritis ENT: Other (Hay fever) Renal/: No pertinent hx Endocrine: Diabetes (2) Past Surgical History Past Surgical History: Arthroscopy (bilateral knee) Family History Family History: Coronary Artery Disease (brothers) Social History No ALCOHOL: none Drugs: None Lives: with Family Current Problem List Problem List Problems Medical Problems: (1) Chest pain Status: Acute (2) Fever Status: Acute (3) Lab test positive for detection of COVID-19 virus Status: Acute Current Medications Current Medications Current Medications Aspirin (Aj Aspirin) 325 mg 1X ONCE PO Last administered on 10/09/21at 17:57; Start 10/09/21 at 17:30; Stop 10/09/21 at 17:31; Status DC Nitroglycerin (Nitrostat) 0.4 mg PRN Q5MIN PRN SL CP RATING > 1/10; Start 10/09/21 at 17:30; Stop 10/10/21 at 17:29; Status DC Morphine Sulfate (Morphine Sulfate) 4 mg PRN Q15MIN PRN IV/SQ PAIN GREATER THAN 3/10; Start 10/09/21 at 17:30; Stop 10/09/21 at 23:00; Status DC Ondansetron HCl (Zofran) 4 mg PRN Q8HRS PRN IVP NAUSEA/VOMITING; Start 10/09/21 at 20:00; Stop 10/09/21 at 21:24; Status DC Morphine Sulfate (Morphine Sulfate) 4 mg PRN Q2HR PRN IVP PAIN; Start 10/09/21 at 20:00; Stop 10/09/21 at 21:23; Status DC Acetaminophen (Tylenol) 650 mg PRN Q4HRS PRN PO FEVER > 100.3'F; Start 10/09/21 at 20:00; Stop 10/09/21 at 21:22; Status DC Nitroglycerin (Nitrostat) 0.4 mg PRN Q5MIN PRN SL CHEST PAIN; Start 10/09/21 at 20:00; Stop 10/10/21 at 19:59; Status UNV Acetaminophen (Tylenol) 1,000 mg 1X ONCE PO Last administered on 10/09/21at 21:03; Start 10/09/21 at 20:00; Stop 10/09/21 at 20:01; Status DC Sodium Chloride 1,000 ml @ 75 mls/hr 1X ONCE IV Last administered on 10/09/21at 21:04; Start 10/09/21 at 20:00; Stop 10/10/21 at 09:19; Status DC Famotidine (Pepcid Vial) 20 mg 1X ONCE IVP Last administered on 10/09/21at 21:04; Start 10/09/21 at 20:30; Stop 10/09/21 at 20:31; Status DC Sennosides (Senna) 17.2 mg PRN BID PRN PO CONSTIPATION; Start 10/09/21 at 21:15 Docusate Sodium (Colace) 100 mg PRN DAILY PRN PO HARD STOOLS Last administered on 10/17/21at 20:23; Start 10/09/21 at 21:15 Ondansetron HCl (Zofran) 4 mg PRN Q6HRS PRN IVP NAUSEA/VOMITING, 1st CHOICE Last administered on 10/16/21at 02:38; Start 10/09/21 at 21:15 Aspirin (Aj Aspirin) 325 mg DAILYWBKFT PO Last administered on 10/10/21at 09:07; Start 10/10/21 at 08:00; Stop 10/10/21 at 10:44; Status DC Insulin Human Lispro (HumaLOG) 0-9 UNITS TIDWMEALS SQ Last administered on 10/18/21at 12:05; Start 10/10/21 at 08:00; Stop 10/18/21 at 16:45; Status DC Dextrose (Dextrose 50%-Water Syringe) 12.5 gm PRN Q15MIN PRN IV SEE COMMENTS Last administered on 10/21/21 06:29; Start 10/09/21 at 21:15 Sodium Chloride 1,000 ml @ 100 mls/hr Q10H IV Last administered on 10/11/21at 05:11; Start 10/10/21 at 10:00; Stop 10/11/21 at 12:02; Status DC Acetaminophen (Tylenol) 650 mg PRN Q4HRS PRN PO TEMP OVER 100.4F OR MILD PAIN Last administered on 10/21/21 17:14; Start 10/09/21 at 21:15 Lorazepam (Ativan) 0.5 mg PRN Q6HRS PRN PO ANXIETY / AGITATION Last administered on 10/17/21 09:24; Start 10/09/21 at 21:15 Lorazepam (Ativan Inj) 0.25 mg PRN Q4HRS PRN IV ANXIETY / AGITATION Last administered on 10/19/21 16:41; Start 10/09/21 at 21:15 Enoxaparin Sodium (Lovenox 40mg Syringe) 40 mg Q24H SQ Last administered on 10/21/21 20:36; Start 10/09/21 at 21:00 Morphine Sulfate (Morphine Sulfate) 1 mg PRN Q1HR PRN IV PAIN Last administered on 10/19/21 15:39; Start 10/09/21 at 21:15; Stop 10/19/21 at 22:45; Status DC Morphine Sulfate (Morphine Sulfate) 2 mg PRN Q2HR PRN IVP SEVERE PAIN 7-10; Start 10/09/21 at 21:15; Stop 10/10/21 at 21:14; Status DC Prochlorperazine Edisylate (Compazine) 10 mg PRN Q6HRS PRN IV NAUSEA/VOMITING, 2nd CHOICE Last administered on 10/19/21 01:53; Start 10/09/21 at 21:15 Diphenhydramine HCl (Benadryl) 25 mg PRN Q6HRS PRN IVP ITCHING; Start 10/09/21 at 21:15 Diphenhydramine HCl (Benadryl) 25 mg PRN Q6HRS PRN PO ITCHING; Start 10/09/21 at 21:15 Diphenhydramine HCl (Benadryl) 25 mg PRN QHS PRN PO INSOMNIA, 1st CHOICE Last administered on 10/18/21 21:45; Start 10/09/21 at 21:15 Zolpidem Tartrate (Ambien) 2.5 mg PRN QHS PRN PO INSOMNIA, 2nd CHOICE Last administered on 10/13/21at 21:54; Start 10/09/21 at 21:15 Atorvastatin Calcium (Lipitor) 10 mg QHS PO Last administered on 10/21/21at 20:36; Start 10/10/21 at 21:00 Lisinopril (Prinivil) 20 mg DAILY PO Last administered on 10/17/21 09:00; Start 10/10/21 at 10:00; Stop 10/22/21 at 09:02; Status DC Metformin HCl (Glucophage) 500 mg BIDWMEALS PO Last administered on 10/16/21 16:30; Start 10/10/21 at 10:00; Stop 10/19/21 at 10:48; Status DC Dexamethasone Sodium Phosphate (Decadron) 6 mg DAILY IVP Last administered on 10/19/21 07:38; Start 10/10/21 at 10:00; Stop 10/19/21 at 09:01; Status DC Ceftriaxone Sodium (Rocephin) 1 gm Q24H IVP Last administered on 10/16/21 07:59; Start 10/10/21 at 10:00; Stop 10/16/21 at 10:01; Status DC Aspirin (Ecotrin) 81 mg DAILYWBKFT PO Last administered on 10/17/21 09:24; Start 10/11/21 at 08:00; Stop 10/20/21 at 07:21; Status DC Guaifenesin/ Codeine Phosphate (Robitussin Ac) 5 ml PRN Q6HRS PRN PO COUGH Last administered on 10/19/21 01:30; Start 10/10/21 at 12:30 Magnesium Sulfate 50 ml @ 25 mls/hr 1X ONCE IV Last administered on 10/11/21at 08:45; Start 10/11/21 at 08:00; Stop 10/11/21 at 09:59; Status DC Lactobacillus Rhamnosus (Culturelle) 1 cap BID PO Last administered on 10/22/21at 08:23; Start 10/12/21 at 21:00 Doxycycline Hyclate (Vibra-Tab) 100 mg BID PO Last administered on 10/17/21 20:23; Start 10/13/21 at 13:30; Stop 10/18/21 at 12:12; Status DC Remdesivir 200 mg/ Sodium Chloride 210 ml @ 210 mls/hr 1X ONCE IV Last administered on 10/13/21at 15:12; Start 10/13/21 at 15:00; Stop 10/13/21 at 15:59; Status DC Remdesivir 100 mg/ Sodium Chloride 230 ml @ 460 mls/hr Q24H IV Last administered on 10/17/21at 15:42; Start 10/14/21 at 14:00; Stop 10/17/21 at 14:29; Status DC Sterile Water (WATER for RESP) 1,000 ml CONT PRN INH VIA VAPOTHERM DEVICE Last administered on 10/19/21 21:07; Start 10/14/21 at 04:15 Zinc Oxide (Zinc Oxide 20% Topical) 1 mj PRN Q4HRS PRN TP SKIN PROTECTION Last administered on 10/15/21at 11:52; Start 10/15/21 at 11:15 Simethicone (Gas-X) 80 mg PRN AFTMEALHC PRN PO GAS / BLOATING Last administered on 10/18/21 22:54; Start 10/18/21 at 04:45 Info (Tpn Per Pharmacy) 1 each PRN DAILY PRN MC SEE COMMENTS Last administered on 10/19/21at 07:48; Start 10/18/21 at 10:45; Stop 10/20/21 at 10:21; Status DC Dextrose/Lactated Ringer's 1,000 ml @ 75 mls/hr 1X ONCE IV Last administered on 10/18/21at 13:43; Start 10/18/21 at 10:45; Stop 10/19/21 at 00:04; Status DC Doxycycline Hyclate 100 mg/ Dextrose 100 ml @ 50 mls/hr Q12HR IV Last administered on 10/22/21at 08:26; Start 10/18/21 at 13:00; Stop 10/24/21 at 22:59 Sodium Chloride 90 meq/Potassium Chloride 20 meq/ Potassium Phosphate 13.6 mmol/Magnesium Sulfate 10 meq/ Multivitamins 10 ml/Zinc/Copper/ Manganese/ Selenium 1 ml/ Total Parenteral Nutrition/Amino Acids/Dextrose/ Fat Emulsion Intravenous 1,512 ml @ 63 mls/hr TPN CONT IV Last administered on 10/18/21at 21:31; Start 10/18/21 at 22:00; Stop 10/19/21 at 21:59; Status DC Dexmedetomidine HCl 400 mcg/ Sodium Chloride 100 ml @ 5.25 mls/hr CONT PRN IV PER PROTOCOL Last administered on 10/22/21at 10:10; Start 10/18/21 at 16:00 Sodium Chloride 500 ml @ 500 mls/hr 1X PRN PRN IV SEE COMMENTS; Start 10/18/21 at 16:00 Atropine Sulfate (ATROPINE 0.5mg SYRINGE) 0.5 mg PRN Q5MIN PRN IV SEE COMMENTS; Start 10/18/21 at 16:00 Insulin Human Lispro (HumaLOG) 0-9 UNITS Q6HRS SQ Last administered on 10/22/21at 06:15; Start 10/18/21 at 18:00 Norepinephrine Bitartrate 8 mg/ Dextrose 258 ml @ 20.318 mls/ hr CONT PRN IV PER PROTOCOL Last administered on 10/22/21at 08:27; Start 10/18/21 at 18:30 Ceftriaxone Sodium (Rocephin) 1 gm Q24H IVP Last administered on 10/22/21at 08:28; Start 10/19/21 at 09:00; Stop 10/28/21 at 08:59 Sodium Chloride 90 meq/Potassium Chloride 20 meq/ Potassium Phosphate 13.6 mmol/Magnesium Sulfate 10 meq/ Multivitamins 10 ml/Zinc/Copper/ Manganese/ Selenium 1 ml/ Total Parenteral Nutrition/Amino Acids/Dextrose 1,512 ml @ 63 mls/hr TPN CONT IV Last administered on 10/19/21at 21:24; Start 10/19/21 at 22:00; Stop 10/20/21 at 21:59; Status DC Insulin Glargine (Lantus Syringe) 25 unit DAILY SQ Last administered on 10/19/21at 11:21; Start 10/19/21 at 11:00; Stop 10/19/21 at 15:07; Status DC Insulin Human Lispro (HumaLOG) 20 units 1X ONCE SQ Last administered on 10/19/21at 11:21; Start 10/19/21 at 10:15; Stop 10/19/21 at 10:16; Status DC Insulin Human Lispro (HumaLOG) 20 units 1X ONCE SQ Last administered on 10/19/21at 17:28; Start 10/19/21 at 15:15; Stop 10/19/21 at 15:16; Status DC Insulin Glargine (Lantus Syringe) 25 unit BID SQ Last administered on 10/22/21at 08:46; Start 10/19/21 at 21:00 Fentanyl Citrate 30 ml @ 2.5 mls/hr CONT PRN IV SEE PROTOCOL Last administered on 10/19/21at 23:12; Start 10/19/21 at 22:45; Stop 10/20/21 at 05:30; Status DC Midazolam HCl 100 ml @ 1 mls/hr CONT PRN IV SEE PROTOCOL Last administered on 10/22/21at 04:47; Start 10/19/21 at 22:45 Vecuronium [place] (Norcuron Bolus) 6 mg PRN 1X PRN IV VENT INDUCTION Last administered on 10/20/21at 00:13; Start 10/19/21 at 22:45; Stop 10/20/21 at 00:14; Status DC Midazolam HCl (Versed) 5 mg PRN 1X PRN IVP VENT INDUCTION; Start 10/19/21 at 22:45; Stop 10/20/21 at 22:44; Status DC Succinylcholine Chloride (Anectine) 200 mg STK-MED ONCE .ROUTE ; Start 10/19/21 at 23:17; Stop 10/19/21 at 23:18; Status DC Etomidate (Amidate) 20 mg STK-MED ONCE IV ; Start 10/19/21 at 23:17; Stop 10/19/21 at 23:18; Status DC Vecuronium [place] (Norcuron Bolus) 6 mg PRN Q6HRS PRN IV VENTILATOR COMPLIANCE Last administered on 10/20/21 16:20; Start 10/20/21 at 00:00; Stop 10/20/21 at 16:28; Status DC Fentanyl Citrate 55 ml @ 1 mls/hr CONT PRN IV PER PROTOCOL Last administered on 10/21/21at 11:51; Start 10/20/21 at 05:15 Aspirin (Aspirin Chewable) 81 mg DAILYWBKFT PO Last administered on 10/22/21at 08:23; Start 10/20/21 at 08:00 Famotidine (Pepcid Vial) 20 mg BID IVP Last administered on 10/21/21at 20:36; Start 10/20/21 at 09:00; Stop 10/22/21 at 08:04; Status DC Vecuronium [place] (Norcuron Bolus) 6 mg PRN Q2HR PRN IV VENTILATOR COMPLIANCE Last administered on 10/22/21at 08:24; Start 10/20/21 at 16:30 Etomidate (Amidate) 20 mg STK-MED ONCE IV ; Start 10/19/21 at 23:30; Stop 10/21/21 at 08:55; Status DC Succinylcholine Chloride (Anectine) 200 mg STK-MED ONCE .ROUTE ; Start 10/19/21 at 23:30; Stop 10/21/21 at 08:55; Status DC Famotidine (Pepcid Vial) 20 mg DAILY IVP Last administered on 10/22/21at 08:23; Start 10/22/21 at 09:00 Sodium Chloride 500 ml @ 500 mls/hr 1X ONCE IV Last administered on 10/22/21at 10:09; Start 10/22/21 at 09:15; Stop 10/22/21 at 10:14; Status DC Active Scripts Active Reported Lipitor (Atorvastatin Calcium) 10 Mg Tablet 1 Tab PO QHS Lisinopril 20 Mg Tablet 1 Tab PO DAILY Metformin Hcl 500 Mg Tablet 1 Tab PO BID Allergies Allergies: Coded Allergies: No Known Drug Allergies (Unverified , 08/11/14) ROS Review of System UNABLE TO OBTAIN Physical Exam HEENT: Atraumatic, Other (ETT) Lungs: Other (DECREASED AT BASES) Heart: Regular rate Abdomen: Normal bowel sounds Extremities: No cyanosis, Other (2+ EDEMA) Skin: No breakdown MUSCULOSKELETAL: No deformity, Other (COOL EXTREMITIES) Vitals VITALS Vital Signs Date Time Temp Pulse Resp B/P (MAP) Pulse Ox O2 Delivery O2 Flow Rate FiO2 10/22/21 08:24 87 Ventilator 10/22/21 06:00 66 20 94/48 10/22/21 04:00 99.5 99.5 10/21/21 12:21 40.0 Labs Labs Laboratory Tests Test 10/20/21 11:43 10/20/21 17:34 10/21/21 00:29 10/21/21 06:14 Glucose (Fingerstick) 221 mg/dL (70-99) 213 mg/dL (70-99) 91 mg/dL (70-99) 65 mg/dL (70-99) Test 10/21/21 06:49 10/21/21 07:40 10/21/21 08:10 10/21/21 10:24 Glucose (Fingerstick) 106 mg/dL (70-99) 155 mg/dL (70-99) O2 Saturation 83 % (92-99) Arterial Blood pH 7.27 (7.35-7.45) Arterial Blood pCO2 at Patient Temp 60 mmHg (35-46) Arterial Blood pO2 at Patient Temp 50 mmHg (65-108) Arterial Blood HCO3 27 mmol/L (21-28) Arterial Blood Base Excess -2 mmol/L (-3-3) FiO2 100% vent White Blood Count 23.0 x10^3/uL (4.0-11.0) Red Blood Count 4.18 x10^6/uL (4.30-5.70) Hemoglobin 13.8 g/dL (13.0-17.5) Hematocrit 41.6 % (39.0-53.0) Mean Corpuscular Volume 100 fL (79-100) Mean Corpuscular Hemoglobin 33 pg (25-35) Mean Corpuscular Hemoglobin Concent 33 g/dL (31-37) Red Cell Distribution Width 13.3 % (11.5-14.5) Platelet Count 147 x10^3/uL (140-400) Neutrophils (%) (Auto) 91 % (31-73) Lymphocytes (%) (Auto) 4 % (24-48) Monocytes (%) (Auto) 3 % (0-9) Eosinophils (%) (Auto) 1 % (0-3) Basophils (%) (Auto) 1 % (0-3) Neutrophils # (Auto) 21.0 x10^3/uL (1.8-7.7) Lymphocytes # (Auto) 1.0 x10^3/uL (1.0-4.8) Monocytes # (Auto) 0.8 x10^3/uL (0.0-1.1) Eosinophils # (Auto) 0.1 x10^3/uL (0.0-0.7) Basophils # (Auto) 0.1 x10^3/uL (0.0-0.2) Sodium Level 137 mmol/L (136-145) Potassium Level 5.3 mmol/L (3.5-5.1) Chloride Level 102 mmol/L (98-107) Carbon Dioxide Level 31 mmol/L (21-32) Anion Gap 4 (6-14) Blood Urea Nitrogen 33 mg/dL (8-26) Creatinine 0.9 mg/dL (0.7-1.3) Estimated GFR (Cockcroft-Gault) 84.7 BUN/Creatinine Ratio 37 (6-20) Glucose Level 125 mg/dL (70-99) Calcium Level 7.5 mg/dL (8.5-10.1) Total Bilirubin 0.5 mg/dL (0.2-1.0) Aspartate Amino Transf (AST/SGOT) 17 U/L (15-37) Alanine Aminotransferase (ALT/SGPT) 11 U/L (16-63) Alkaline Phosphatase 87 U/L (46-116) Total Protein 6.2 g/dL (6.4-8.2) Albumin 1.3 g/dL (3.4-5.0) Albumin/Globulin Ratio 0.3 (1.0-1.7) Test 10/21/21 17:22 10/21/21 23:54 10/22/21 05:39 10/22/21 06:10 Glucose (Fingerstick) 195 mg/dL (70-99) 221 mg/dL (70-99) 204 mg/dL (70-99) Sodium Level 134 mmol/L (136-145) Potassium Level 5.6 mmol/L (3.5-5.1) Chloride Level 100 mmol/L (98-107) Carbon Dioxide Level 28 mmol/L (21-32) Anion Gap 6 (6-14) Blood Urea Nitrogen 62 mg/dL (8-26) Creatinine 1.8 mg/dL (0.7-1.3) Estimated GFR (Cockcroft-Gault) 38.1 BUN/Creatinine Ratio 34 (6-20) Glucose Level 281 mg/dL (70-99) Calcium Level 7.0 mg/dL (8.5-10.1) Total Bilirubin 0.4 mg/dL (0.2-1.0) Aspartate Amino Transf (AST/SGOT) 54 U/L (15-37) Alanine Aminotransferase (ALT/SGPT) 38 U/L (16-63) Alkaline Phosphatase 85 U/L (46-116) Total Protein 5.0 g/dL (6.4-8.2) Albumin 1.1 g/dL (3.4-5.0) Albumin/Globulin Ratio 0.3 (1.0-1.7) Test 10/22/21 08:00 10/22/21 10:00 O2 Saturation 74 % (92-99) Arterial Blood pH 7.19 (7.35-7.45) Arterial Blood pCO2 at Patient Temp 71 mmHg (35-46) Arterial Blood pO2 at Patient Temp < 42 mmHg (65-108) Arterial Blood HCO3 27 mmol/L (21-28) Arterial Blood Base Excess -3 mmol/L (-3-3) FiO2 100% ac 20 500 10 Urine Collection Type Unknown Urine Color Yellow Urine Clarity Cloudy Urine pH 5.0 (<5.0-8.0) Urine Specific [place] 1.015 (1.000-1.030) Urine Protein Negative mg/dL (NEG-TRACE) Urine Glucose (UA) Negative mg/dL (NEG) Urine Ketones (Stick) Negative mg/dL (NEG) Urine Blood Negative (NEG) Urine Nitrite Negative (NEG) Urine Bilirubin Negative (NEG) Urine Urobilinogen Dipstick 0.2 mg/dL (0.2 mg/dL) Urine Leukocyte Esterase Negative (NEG) Urine RBC 0 /HPF (0-2) Urine WBC 1-4 /HPF (0-4) Urine Amorphous Sediment Present /HPF Urine Bacteria Few /HPF (0-FEW) Urine Hyaline Casts Few /HPF Urine Mucus Marked /LPF Laboratory Tests Test 10/21/21 17:22 10/21/21 23:54 10/22/21 05:39 10/22/21 06:10 Glucose (Fingerstick) 195 mg/dL (70-99) 221 mg/dL (70-99) 204 mg/dL (70-99) Sodium Level 134 mmol/L (136-145) Potassium Level 5.6 mmol/L (3.5-5.1) Chloride Level 100 mmol/L (98-107) Carbon Dioxide Level 28 mmol/L (21-32) Anion Gap 6 (6-14) Blood Urea Nitrogen 62 mg/dL (8-26) Creatinine 1.8 mg/dL (0.7-1.3) Estimated GFR (Cockcroft-Gault) 38.1 BUN/Creatinine Ratio 34 (6-20) Glucose Level 281 mg/dL (70-99) Calcium Level 7.0 mg/dL (8.5-10.1) Total Bilirubin 0.4 mg/dL (0.2-1.0) Aspartate Amino Transf (AST/SGOT) 54 U/L (15-37) Alanine Aminotransferase (ALT/SGPT) 38 U/L (16-63) Alkaline Phosphatase 85 U/L (46-116) Total Protein 5.0 g/dL (6.4-8.2) Albumin 1.1 g/dL (3.4-5.0) Albumin/Globulin Ratio 0.3 (1.0-1.7) Test 10/22/21 08:00 10/22/21 10:00 O2 Saturation 74 % (92-99) Arterial Blood pH 7.19 (7.35-7.45) Arterial Blood pCO2 at Patient Temp 71 mmHg (35-46) Arterial Blood pO2 at Patient Temp < 42 mmHg (65-108) Arterial Blood HCO3 27 mmol/L (21-28) Arterial Blood Base Excess -3 mmol/L (-3-3) FiO2 100% ac 20 500 10 Urine Collection Type Unknown Urine Color Yellow Urine Clarity Cloudy Urine pH 5.0 (<5.0-8.0) Urine Specific [place] 1.015 (1.000-1.030) Urine Protein Negative mg/dL (NEG-TRACE) Urine Glucose (UA) Negative mg/dL (NEG) Urine Ketones (Stick) Negative mg/dL (NEG) Urine Blood Negative (NEG) Urine Nitrite Negative (NEG) Urine Bilirubin Negative (NEG) Urine Urobilinogen Dipstick 0.2 mg/dL (0.2 mg/dL) Urine Leukocyte Esterase Negative (NEG) Urine RBC 0 /HPF (0-2) Urine WBC 1-4 /HPF (0-4) Urine Amorphous Sediment Present /HPF Urine Bacteria Few /HPF (0-FEW) Urine Hyaline Casts Few /HPF Urine Mucus Marked /LPF Assessment/Plan Assessment/Plan IMP GRACIELA-ATN HYPERKALEMIA HYPOTENSION SEPSIS ACIDEMIA ACUTE HYPOXIC HYPERCARBIC RESP FAILURE LEUCOCYTOSIS MALNUTRITION 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
[2021-10-22] MEDS ORDERED: LIDOCAINE WITH 8.4% SOD BICARB 3 ML DISP.SYRIN. ONE (10:59)
[2021-10-22] MEDS ORDERED: LIDOCAINE WITH 8.4% SOD BICARB 3 ML DISP.SYRIN. INJ ONE (11:15)
[2021-10-22] MEDS: CITRIC ACID/SODIUM CITRATE 30 ML SOLUTION. PO SCH ×2 (12:27→21:00)
--- NOTE | 2021-10-22 12:28 | PDOC ---
PULMONARY PROGRESS NOTES DATE: 10/22/21 TIME: 12:27 Subjective Increasing PEEP to 10 100% FiO2 Acidosis is worse Patient continues to be critically ill Requiring norepinephrine Vitals Vital Signs Date Time Temp Pulse Resp B/P (MAP) Pulse Ox O2 Delivery O2 Flow Rate FiO2 10/22/21 12:00 69 Ventilator 10/22/21 06:00 66 20 94/48 10/22/21 04:00 99.5 99.5 10/21/21 12:21 40.0 Lungs: Clear Abdomen: Soft, Non-tender Extremities: No Edema Skin: Warm, No Rashes Labs Laboratory Tests Test 10/20/21 17:34 10/21/21 00:29 10/21/21 06:14 10/21/21 06:49 Glucose (Fingerstick) 213 mg/dL (70-99) 91 mg/dL (70-99) 65 mg/dL (70-99) 106 mg/dL (70-99) Test 10/21/21 07:40 10/21/21 08:10 10/21/21 10:24 10/21/21 17:22 O2 Saturation 83 % (92-99) Arterial Blood pH 7.27 (7.35-7.45) Arterial Blood pCO2 at Patient Temp 60 mmHg (35-46) Arterial Blood pO2 at Patient Temp 50 mmHg (65-108) Arterial Blood HCO3 27 mmol/L (21-28) Arterial Blood Base Excess -2 mmol/L (-3-3) FiO2 100% vent White Blood Count 23.0 x10^3/uL (4.0-11.0) Red Blood Count 4.18 x10^6/uL (4.30-5.70) Hemoglobin 13.8 g/dL (13.0-17.5) Hematocrit 41.6 % (39.0-53.0) Mean Corpuscular Volume 100 fL (79-100) Mean Corpuscular Hemoglobin 33 pg (25-35) Mean Corpuscular Hemoglobin Concent 33 g/dL (31-37) Red Cell Distribution Width 13.3 % (11.5-14.5) Platelet Count 147 x10^3/uL (140-400) Neutrophils (%) (Auto) 91 % (31-73) Lymphocytes (%) (Auto) 4 % (24-48) Monocytes (%) (Auto) 3 % (0-9) Eosinophils (%) (Auto) 1 % (0-3) Basophils (%) (Auto) 1 % (0-3) Neutrophils # (Auto) 21.0 x10^3/uL (1.8-7.7) Lymphocytes # (Auto) 1.0 x10^3/uL (1.0-4.8) Monocytes # (Auto) 0.8 x10^3/uL (0.0-1.1) Eosinophils # (Auto) 0.1 x10^3/uL (0.0-0.7) Basophils # (Auto) 0.1 x10^3/uL (0.0-0.2) Sodium Level 137 mmol/L (136-145) Potassium Level 5.3 mmol/L (3.5-5.1) Chloride Level 102 mmol/L (98-107) Carbon Dioxide Level 31 mmol/L (21-32) Anion Gap 4 (6-14) Blood Urea Nitrogen 33 mg/dL (8-26) Creatinine 0.9 mg/dL (0.7-1.3) Estimated GFR (Cockcroft-Gault) 84.7 BUN/Creatinine Ratio 37 (6-20) Glucose Level 125 mg/dL (70-99) Calcium Level 7.5 mg/dL (8.5-10.1) Total Bilirubin 0.5 mg/dL (0.2-1.0) Aspartate Amino Transf (AST/SGOT) 17 U/L (15-37) Alanine Aminotransferase (ALT/SGPT) 11 U/L (16-63) Alkaline Phosphatase 87 U/L (46-116) Total Protein 6.2 g/dL (6.4-8.2) Albumin 1.3 g/dL (3.4-5.0) Albumin/Globulin Ratio 0.3 (1.0-1.7) Glucose (Fingerstick) 155 mg/dL (70-99) 195 mg/dL (70-99) Test 10/21/21 23:54 10/22/21 05:39 10/22/21 06:10 10/22/21 08:00 Glucose (Fingerstick) 221 mg/dL (70-99) 204 mg/dL (70-99) Sodium Level 134 mmol/L (136-145) Potassium Level 5.6 mmol/L (3.5-5.1) Chloride Level 100 mmol/L (98-107) Carbon Dioxide Level 28 mmol/L (21-32) Anion Gap 6 (6-14) Blood Urea Nitrogen 62 mg/dL (8-26) Creatinine 1.8 mg/dL (0.7-1.3) Estimated GFR (Cockcroft-Gault) 38.1 BUN/Creatinine Ratio 34 (6-20) Glucose Level 281 mg/dL (70-99) Calcium Level 7.0 mg/dL (8.5-10.1) Total Bilirubin 0.4 mg/dL (0.2-1.0) Aspartate Amino Transf (AST/SGOT) 54 U/L (15-37) Alanine Aminotransferase (ALT/SGPT) 38 U/L (16-63) Alkaline Phosphatase 85 U/L (46-116) Total Protein 5.0 g/dL (6.4-8.2) Albumin 1.1 g/dL (3.4-5.0) Albumin/Globulin Ratio 0.3 (1.0-1.7) O2 Saturation 74 % (92-99) Arterial Blood pH 7.19 (7.35-7.45) Arterial Blood pCO2 at Patient Temp 71 mmHg (35-46) Arterial Blood pO2 at Patient Temp < 42 mmHg (65-108) Arterial Blood HCO3 27 mmol/L (21-28) Arterial Blood Base Excess -3 mmol/L (-3-3) FiO2 100% ac 20 500 10 Test 10/22/21 10:00 Urine Collection Type Unknown Urine Color Yellow Urine Clarity Cloudy Urine pH 5.0 (<5.0-8.0) Urine Specific [place] 1.015 (1.000-1.030) Urine Protein Negative mg/dL (NEG-TRACE) Urine Glucose (UA) Negative mg/dL (NEG) Urine Ketones (Stick) Negative mg/dL (NEG) Urine Blood Negative (NEG) Urine Nitrite Negative (NEG) Urine Bilirubin Negative (NEG) Urine Urobilinogen Dipstick 0.2 mg/dL (0.2 mg/dL) Urine Leukocyte Esterase Negative (NEG) Urine RBC 0 /HPF (0-2) Urine WBC 1-4 /HPF (0-4) Urine Amorphous Sediment Present /HPF Urine Bacteria Few /HPF (0-FEW) Urine Hyaline Casts Few /HPF Urine Mucus Marked /LPF Laboratory Tests Test 2/7/22 17:22 10/21/21 23:54 10/22/21 05:39 10/22/21 06:10 Glucose (Fingerstick) 195 mg/dL (70-99) 221 mg/dL (70-99) 204 mg/dL (70-99) Sodium Level 134 mmol/L (136-145) Potassium Level 5.6 mmol/L (3.5-5.1) Chloride Level 100 mmol/L (98-107) Carbon Dioxide Level 28 mmol/L (21-32) Anion Gap 6 (6-14) Blood Urea Nitrogen 62 mg/dL (8-26) Creatinine 1.8 mg/dL (0.7-1.3) Estimated GFR (Cockcroft-Gault) 38.1 BUN/Creatinine Ratio 34 (6-20) Glucose Level 281 mg/dL (70-99) Calcium Level 7.0 mg/dL (8.5-10.1) Total Bilirubin 0.4 mg/dL (0.2-1.0) Aspartate Amino Transf (AST/SGOT) 54 U/L (15-37) Alanine Aminotransferase (ALT/SGPT) 38 U/L (16-63) Alkaline Phosphatase 85 U/L (46-116) Total Protein 5.0 g/dL (6.4-8.2) Albumin 1.1 g/dL (3.4-5.0) Albumin/Globulin Ratio 0.3 (1.0-1.7) Test 10/22/21 08:00 10/22/21 10:00 O2 Saturation 74 % (92-99) Arterial Blood pH 7.19 (7.35-7.45) Arterial Blood pCO2 at Patient Temp 71 mmHg (35-46) Arterial Blood pO2 at Patient Temp < 42 mmHg (65-108) Arterial Blood HCO3 27 mmol/L (21-28) Arterial Blood Base Excess -3 mmol/L (-3-3) FiO2 100% ac 20 500 10 Urine Collection Type Unknown Urine Color Yellow Urine Clarity Cloudy Urine pH 5.0 (<5.0-8.0) Urine Specific [place] 1.015 (1.000-1.030) Urine Protein Negative mg/dL (NEG-TRACE) Urine Glucose (UA) Negative mg/dL (NEG) Urine Ketones (Stick) Negative mg/dL (NEG) Urine Blood Negative (NEG) Urine Nitrite Negative (NEG) Urine Bilirubin Negative (NEG) Urine Urobilinogen Dipstick 0.2 mg/dL (0.2 mg/dL) Urine Leukocyte Esterase Negative (NEG) Urine RBC 0 /HPF (0-2) Urine WBC 1-4 /HPF (0-4) Urine Amorphous Sediment Present /HPF Urine Bacteria Few /HPF (0-FEW) Urine Hyaline Casts Few /HPF Urine Mucus Marked /LPF Medications Active Scripts Medications Dose Route/Sig Max Daily Dose Days Date Category Lipitor (Atorvastatin Calcium) 10 Mg Tablet 1 Tab PO QHS 10/10/21 Reported Lisinopril 20 Mg Tablet 1 Tab PO DAILY 08/11/14 Reported Metformin Hcl 500 Mg Tablet 1 Tab PO BID 08/11/14 Reported Impression . IMPRESSION: 1. Acute hypoxemic respiratory failure. Intubated 10/19, failed noninvasive ventilation 2. COVID-19 viral pneumonia/acute respiratory distress syndrome. 3. Possible bacterial pneumonia. 4. Chest pain, unstable angina, AMI ruled out 5. Hypertension. 6. Hyperlipidemia. 7. Type 2 diabetes. 7. Septic shock Plan . Updated 10/22 ABG noted, pH is 7.1 acidosis both metabolic and respiratory is worse Discussed with Dr. Aldana Initiate hemodialysis Increase rate to 26, discussed with RT Prognosis is dismal Finish course of remdesivir Finish dexamethasone Started on doxycycline and ceftriaxone CCT 30 minutes DELFIN FRANCO MD Oct 22, 2021 12:28
--- NOTE | 2021-10-22 12:41 | RAD ---
EXAM: Chest, single view. HISTORY: Hemodialysis catheter placement. COMPARISON: 10/20/2021 FINDINGS: A frontal view of the chest is obtained. There is an endotracheal tube within the mid trach ea. There is a nasogastric tube within the stomach. There is a right internal jugular catheter cathet er with the tip in the right atrium. There is a right PICC with the tip overlying expected location o f the superior cavoatrial junction. There is no pneumothorax. There is increased diffuse interstitial and alveolar infiltrate with suspected small pleural effusions. There is a stable cardiac silhouette . There has been decrease in previously demonstrated soft tissue emphysema. IMPRESSION: 1. Right internal jugular catheter with the tip overlying the right atrium. There is also a right PIC C with the tip overlying the suspected location of the superior cavoatrial junction. 2. Increase in diffuse interstitial and alveolar infiltrate with small pleural effusions. 3. Endotracheal tube and nasogastric tube in expected position. Electronically signed by: Mariah Camacho MD (10/22/2021 12:39 PM) [id number]
[2021-10-22 12:50] LABS: CREATININE 1.8 mg/dL (0.7-1.3); GFR 38.1; POTASSIUM 5.5 mmol/L (3.5-5.1)
--- NOTE | 2021-10-22 13:14 | PDOC ---
[facility] PROGRESS NOTE Date of Service DOS: DATE: 10/22/21 TIME: 13:14 Chief Complaint Chief Complaint COVID -19 pneumonia, ARDS, acute hypoxic respiratory failure on vent sepsis, severe sepsis admit for Atypical chest pain, rule out ACS Acute electrolyte derangementhyponatremia, hypochloremia suggestive of volume depletion COVID-19 infection Hyperglycemia Thrombocytopenia History of type 2 diabetes mellitus History of hypertension History of dyslipidemia obese, BMI 36 History of Present Illness History of Present Illness 10/22 Evaluated examined at bedside. Remains intubated sedated. Continuing antibiotics. Needs to start dialysis per nephrology. Line placed today. Wean pressors as tolerated. Plan discussed with bedside RN. 40 minutes critical care time. 10/21 Patient evaluated examined at bedside. Still remains on ventilator and sedated. He was PEEP. Patient also requiring Levophed for blood pressure support. Continue antibiotics. Has finished steroids and remdesivir. 33 minutes critical care time 10/20, on vent, has declined, discussed with - 18 minutes by phone of advanced care planning cont current prognosis poor now no vent s/p 10 days steroids blood sugar is better 10/19, to ICU overnight, vapotherm and bipap 100% to maintain calm, diong OK, PULM and CV following 10/18: Requiring nearly continuous BiPAP with supplemental Vapotherm 40 L/min percent FiO2 little drowsy today weak. Discussed with his . He is consentable to further interventions such as intubation Regonol is maintaining O 2 saturations 92%. 2/3: Further to desaturations as supplemental BiPAP in addition to Vapotherm 40 L/min 100% FiO2. He is able to converse. He does not want to be intubated if he would have a prolonged stay on the ventilator and is asked if his can be updated. NA 130. Not eating. PICC line for TPN 2: Seen bedside on her percent FiO2 Vapotherm 40 L/min with supplemental facemask O2. Chest radiograph with poor inspiratory effort. Is still gets relatively significant desaturations. Counseled on incentive spirometer and severity of his disease. Sodium is 131 today he says he is eating 10/15: ABG 7.5 01/09/63 on 100% FiO2 Vapotherm 40 L/min with supplemental facemask O2. Seen bedside. Complains of rhinitis and try to get up to use urinal and desats into the low 80s with this. Counseled maintain his Vapotherm. Complains of pain behind his ear 10/14: Seen bedside. On 40 L/min 100% FiO2 with supplemental facemask. Has a little bit of an appetite. Significant desaturations with movement. No chest pain. Still short of breath with cough. Cardiac cath plans canceled. 10/13: Evaluated examined at bedside. Shortness of breath is a little bit worse and oxygenation has increased a little bit. Add on remdesivir today add doxycycline. 10/12: Evaluated and examined at bedside. Had just gotten back from bathroom a little SOB on increased O2 setting to sat back up but back up in 90's when seen. 10/11: Evaluate examined at bedside. Resting in bed. Understands this plan for procedure Thursday. Continuing COVID treatment. Plan discussed with bedside RN. 10/10: Patient evaluate examined at bedside. Was resting in bed really coughing. Informed of reason procedure pushed to Thursday with Covid positive. He understood well. Will start dexamethasone and Rocephin for Covid positivity. Rocephin cover any bacterial pneumonias. As needed cough medicine. If he starts require oxygen can start remdesivir then. Otherwise continue to follow. Up ad felicity. Vitals/I&O Vitals/I&O: Vital Signs Date Time Temp Pulse Resp B/P (MAP) Pulse Ox O2 Delivery O2 Flow Rate FiO2 10/22/21 12:00 69 Ventilator 10/22/21 06:00 66 20 94/48 10/22/21 04:00 99.5 99.5 10/21/21 12:21 40.0 I & O 10/21/21 10/21/21 10/22/21 15:00 23:00 07:00 Intake Total 200 ml 1589 ml 1728 ml Output Total 225 ml 250 ml 300 ml Balance -25 ml 1339 ml 1428 ml Physical Exam General: Cooperative, Other (Intubated and sedated) Heart: Regular rate Lungs: Clear Abdomen: Normal bowel sounds Extremities: No cyanosis, Other (2+ EDEMA) Skin: No breakdown Labs Labs: Laboratory Tests Test 10/21/21 17:22 10/21/21 23:54 10/22/21 05:39 10/22/21 06:10 Glucose (Fingerstick) 195 mg/dL (70-99) 221 mg/dL (70-99) 204 mg/dL (70-99) Sodium Level 134 mmol/L (136-145) Potassium Level 5.6 mmol/L (3.5-5.1) Chloride Level 100 mmol/L (98-107) Carbon Dioxide Level 28 mmol/L (21-32) Anion Gap 6 (6-14) Blood Urea Nitrogen 62 mg/dL (8-26) Creatinine 1.8 mg/dL (0.7-1.3) Estimated GFR (Cockcroft-Gault) 38.1 BUN/Creatinine Ratio 34 (6-20) Glucose Level 281 mg/dL (70-99) Calcium Level 7.0 mg/dL (8.5-10.1) Total Bilirubin 0.4 mg/dL (0.2-1.0) Aspartate Amino Transf (AST/SGOT) 54 U/L (15-37) Alanine Aminotransferase (ALT/SGPT) 38 U/L (16-63) Alkaline Phosphatase 85 U/L (46-116) Total Protein 5.0 g/dL (6.4-8.2) Albumin 1.1 g/dL (3.4-5.0) Albumin/Globulin Ratio 0.3 (1.0-1.7) Test 10/22/21 08:00 10/22/21 10:00 10/22/21 12:00 10/22/21 12:29 O2 Saturation 74 % (92-99) Arterial Blood pH 7.19 (7.35-7.45) Arterial Blood pCO2 at Patient Temp 71 mmHg (35-46) Arterial Blood pO2 at Patient Temp < 42 mmHg (65-108) Arterial Blood HCO3 27 mmol/L (21-28) Arterial Blood Base Excess -3 mmol/L (-3-3) FiO2 100% ac 20 500 10 Urine Collection Type Unknown Urine Color Yellow Urine Clarity Cloudy Urine pH 5.0 (<5.0-8.0) Urine Specific [place] 1.015 (1.000-1.030) Urine Protein Negative mg/dL (NEG-TRACE) Urine Glucose (UA) Negative mg/dL (NEG) Urine Ketones (Stick) Negative mg/dL (NEG) Urine Blood Negative (NEG) Urine Nitrite Negative (NEG) Urine Bilirubin Negative (NEG) Urine Urobilinogen Dipstick 0.2 mg/dL (0.2 mg/dL) Urine Leukocyte Esterase Negative (NEG) Urine RBC 0 /HPF (0-2) Urine WBC 1-4 /HPF (0-4) Urine Amorphous Sediment Present /HPF Urine Bacteria Few /HPF (0-FEW) Urine Hyaline Casts Few /HPF Urine Mucus Marked /LPF Sodium Level 131 mmol/L (136-145) Potassium Level 5.5 mmol/L (3.5-5.1) Chloride Level 100 mmol/L (98-107) Carbon Dioxide Level 28 mmol/L (21-32) Anion Gap 3 (6-14) Blood Urea Nitrogen 67 mg/dL (8-26) Creatinine 1.8 mg/dL (0.7-1.3) Estimated GFR (Cockcroft-Gault) 38.1 Glucose Level 292 mg/dL (70-99) Calcium Level 7.0 mg/dL (8.5-10.1) Glucose (Fingerstick) 286 mg/dL (70-99) Assessment and Plan Assessmemt and Plan Problems Medical Problems: (1) Chest pain Status: Acute (2) Fever Status: Acute (3) Lab test positive for detection of COVID-19 virus Status: Acute Comment Review of Relevant I have reviewed the following items bo (where applicable) has been applied. Medications: Current Medications Medications (Trade) Dose Ordered Sig/Jodi Route PRN Reason Start Time Stop Time Status Last Admin Dose Admin Famotidine (Pepcid Vial) 20 mg DAILY IVP 10/22/21 09:00 10/22/21 08:23 Sodium Chloride 500 ml @ 500 mls/hr 1X ONCE IV 10/22/21 09:15 10/22/21 10:14 DC 10/22/21 10:09 Citric Acid/ Sodium Citrate (Bicitra) 30 ml BID PO 10/22/21 12:00 10/22/21 12:27 Lidocaine HCl (Buffered Lidocaine 1%) 6 ml 1X ONCE INJ 10/22/21 11:15 10/22/21 11:16 DC 10/22/21 11:15 Justifications for Admission Other Justification Chest pain. NIKOLAI STANLEY MD Oct 22, 2021 13:14
[2021-10-22] MEDS ORDERED: ALBUMIN HUMAN 25% 200 ML IV PRN (13:30)
[2021-10-22] MEDS ORDERED: IV NORMAL SALINE 1000ML BAG 1,000 ML IV PRN ×2 (13:30)
[2021-10-22] MEDS ORDERED: DIALYSIS PATIENT. MC PRN ×2 (13:30)
--- NOTE | 2021-10-22 15:10 | EKG ---
[facility] [address] [place] [address] Test Date: 2021-10-22 Test Time: 15:07:12 Pat Name: YE SARKAR Department: Room: 106 1 Gender: M Tile Trimmer: JUSTINA : 1955 Requested By: LAURENT DORANTES Order Number: [id number] Reading MD: Measurements Intervals [place] Rate: 144 P: ID: QRS: -9 QRSD: 90 T: 10 QT: 318 QTc: 497 Interpretive Statements IRREGULAR RHYTHM, NO P-WAVE FOUND LEFTWARD AXIS NO SPECIFIC ECG ABNORMALITIES RI6.02 Compared to ECG 10/09/2021 17:10:02 Left-axis deviation now present Sinus tachycardia no longer present
[2021-10-22] MEDS ORDERED: DIGOXIN IV 500 MCG/2 ML AMPUL. IV ONE (15:15)
[2021-10-22] MEDS ORDERED: PHENYLEPHRINE INJ 50 MG in IV NORMAL SALINE 250ML 250 ML IV PRN (15:30)
--- NOTE | 2021-10-22 15:46 | RAD ---
Procedure: Temporary hemodialysis catheter placement Sterility: All elements of maximal sterile barrier technique including the use of a cap, mask, steril e gown, sterile gloves, large sterile sheet, appropriate hand hygiene, and 2% chlorhexidine for cutan eous antisepsis (or acceptable alternative antiseptic per current guidelines) were followed for this procedure. Consent: The procedure was explained in its entirety to the patient or the patients designated repres entative by a member of the treatment team, including a discussion of the risks, benefits and commonl y accepted alternatives to the procedure, as well as the expected consequences of no therapy whatsoev er. Discussion of the risks included, but was not limited to, those that are most frequent and thos e that are rare but possibly severe or life-threatening, as well as the possibility of unforeseen com plications. Technique and Findings: Following informed consent, the patient was prepped and draped in the usual s terile fashion. Ultrasound interrogation of the right neck revealed patency and compressibility of t he right internal jugular vein. A 21-gauge micropuncture was then used to gain access to this vein u nder ultrasound guidance. A hard copy ultrasound image was recorded. A guidewire was advanced centra lly over which, following dilatation, a temporary dialysis catheter was placed. The new catheter wa s found to flush and aspirate normally. The catheter was secured in place. Sterile dressings were mj lied. No immediate complications were identified. IMPRESSION: Placement of a temporary dialysis catheter Electronically signed by: Miky Wright MD (10/22/2021 3:44 PM) [id number]
[2021-10-22] MEDS: VASOPRESSIN - VASOSTRICT 20 UNIT in IV DEXTROSE 5% 100ML 100 ML IV PRN ×2 (17:49→23:33)
[2021-10-22] MEDS ORDERED: AMIODARONE 450 MG in IV DEXTROSE 5% 250 ML IV PRN (18:30)
[2021-10-22] MEDS ORDERED: AMIODARONE 300 MG in IV DEXTROSE 5% 100ML 100 ML IV ONE (18:30)
--- NOTE | 2021-10-22 18:45 | NUR ---
EOSS am started with poor abg laybile sbp- titration of levo with fluid bolus, HD cath inserted followed by lo sa02- took very long to recover with sao0 in lo 70%, patient became very unstable start of hemodialysis, continued to worsen,RX ended past 50min, went into A-fib RVR unstable VS low sa02. see sheet under nurses note for rapid vs/note, called with update, talked with Dr. Cochran.Dr. Diallo
[2021-10-22] MEDS ORDERED: SODIUM BICARB ADULT 8.4% 50 MEQ/50 ML DISP.SYRIN. ONE (19:00)
[2021-10-22] MEDS ORDERED: EPINEPHrine SYRINGE 1 MG/10 ML SYRINGE. ONE (19:00)
[2021-10-22] MEDS ORDERED: EPINEPHrine VIAL 5 MG in IV NORMAL SALINE 250ML 250 ML IV PRN (20:45)
[2021-10-22] MEDS: ATORVASTATIN CALCIUM 10 MG TABLET. PO SCH (21:00)
[2021-10-22] MEDS: PHENYLEPHRINE INJ 100 MG in IV NS 250 ML IV PRN (22:44)
[2021-10-22] MEDS: EPINEPHrine VIAL 10 MG in IV NORMAL SALINE 250ML IV PRN (22:44)
[2021-10-22] MEDS: HEPARIN for SUB-Q USE 5,000 UNIT/ML VIAL. SQ SCH (23:06)
[2021-10-23] VITALS: BP 98/70
[2021-10-23] MEDS: EPINEPHrine VIAL 10 MG in IV NORMAL SALINE 250ML IV PRN ×3 (00:14→05:31)
[2021-10-23] MEDS: NOREPINEPHRINE VIAL 32 MG in IV DEXTROSE 5% 218 ML IV PRN ×2 (00:16→03:07)
[2021-10-23 01:00] VITALS: BP 97/69
--- NOTE | 2021-10-23 01:24 | NUR ---
pt extremely unstable throughout night, requiring max rates of 4 pressors + bagging by RT at one point. Still unstable despite all interventions. Approval from nursing loan processing supervisor for patients's , Rebeka, and son, Matteo to see patient. While here seeing the patient, Rebeka voiced desire to make pt a DNR. Witnessed by Constance LADD. Pt made DNR in computer, will continue monitoring.
[2021-10-23 02:00] VITALS: BP 92/69
[2021-10-23 03:00] VITALS: BP 93/69
[2021-10-23] MEDS: PHENYLEPHRINE INJ 100 MG in IV NS 250 ML IV PRN (03:20)
[2021-10-23 04:00] VITALS: BP 91/68
[2021-10-23 05:00] VITALS: BP 90/62
[2021-10-23] MEDS: HEPARIN for SUB-Q USE 5,000 UNIT/ML VIAL. SQ SCH (05:34)
[2021-10-23] MEDS: INSULIN LISPRO 300 UNITS/3 ML VIAL. SQ SCH (05:34)
--- NOTE | 2021-10-23 05:58 | NUR ---
Family notified RN desire to withdraw care. Dr. Diallo notified. Pt made comfort measures only. ET tube removed at 0555. Family at bedside.
--- NOTE | 2021-10-23 06:12 | NUR ---
Time of 600. Dr. Diallo notified
--- NOTE | 2021-10-23 09:10 | RAD ---
Procedure: Temporary hemodialysis catheter placement Sterility: All elements of maximal sterile barrier technique including the use of a cap, mask, sterile gown, sterile gloves, large sterile sheet, appropriate hand hygiene, and 2% chlorhexidine for cutaneous antisepsis (or acceptable alternative antiseptic per current guidelines) were followed for this procedure. Consent: The procedure was explained in its entirety to the patient or the patients designated cash posting representative by a member of the treatment team, including a discussion of the risks, benefits and commonly accepted alternatives to the procedure, as well as the expected consequences of no therapy whatsoever. Discussion of the risks included, but was not limited to, those that are most frequent and those that are rare but possibly severe or life-threatening, as well as the possibility of unforeseen complications. Technique and Findings: Following informed consent, the patient was prepped and draped in the usual sterile fashion. Ultrasound interrogation of the right neck revealed patency and compressibility of the right internal jugular vein. A 21- gauge micropuncture was then used to gain access to this vein under ultrasound guidance. A hard copy ultrasound image was recorded. A guidewire was advanced centrally over which, following dilatation, a temporary dialysis catheter was placed. The new catheter was found to flush and aspirate normally. The catheter was secured in place. Sterile dressings were applied. No immediate complications were identified. IMPRESSION: Placement of a temporary dialysis catheter MTDD
--- NOTE | 2021-10-23 10:53 | PDOC3 ---
[facility]Dis[facility] Summary Date of Admission: Date of Admission: Oct 09, 2021 Date of Discharge: Date of Discharge: Oct 23, 2021 Admission Diagnosis: Problems: (1) COVID (2) Chest pain Consults: Consults: CHICHI Campos Hospital Course: Hospital Course: Chief Complaint COVID -19 pneumonia, ARDS, acute hypoxic respiratory failure on vent sepsis, severe sepsis admit for Atypical chest pain, rule out ACS Acute electrolyte derangementhyponatremia, hypochloremia suggestive of volume depletion COVID-19 infection Hyperglycemia Thrombocytopenia History of type 2 diabetes mellitus History of hypertension History of dyslipidemia obese, BMI 36 History of Present Illness History of Present Illness 10/23 Patient became very unstable requiring 4 pressors with no improvement. at bedside elected to make DNR as unlikely to survive this current event. at 601 10/22 Evaluated examined at bedside. Remains intubated sedated. Continuing antibiotics. Needs to start dialysis per nephrology. Line placed today. Wean pressors as tolerated. Plan discussed with bedside RN. 40 minutes critical care time. 10/21 Patient evaluated examined at bedside. Still remains on ventilator and sedated. He was PEEP. Patient also requiring Levophed for blood pressure support. Continue antibiotics. Has finished steroids and remdesivir. 33 minutes critical care time 10/20, on vent, has declined, discussed with - 18 minutes by phone of advanced care planning cont current prognosis poor now no vent s/p 10 days steroids blood sugar is better 2/, to ICU overnight, vapotherm and bipap 100% to maintain calm, diong OK, PULM and CV following 2/4: Requiring nearly continuous BiPAP with supplemental Vapotherm 40 L/min percent FiO2 little drowsy today weak. Discussed with his . He is consentable to further interventions such as intubation Regonol is maintaining O2 saturations 92%. 2/3: Further to desaturations as supplemental BiPAP in addition to Vapotherm 40 L/min 100% FiO2. He is able to converse. He does not want to be intubated if he would have a prolonged stay on the ventilator and is asked if his can be updated. NA 130. Not eating. PICC line for TPN 2/2: Seen bedside on her percent FiO2 Vapotherm 40 L/min with supplemental facemask O2. Chest radiograph with poor inspiratory effort. Is still gets relatively significant desaturations. Counseled on incentive spirometer and severity of his disease. Sodium is 131 today he says he is eating 10/15: ABG 7.5 01/09/63 on 100% FiO2 Vapotherm 40 L/min with supplemental facemask O2. Seen bedside. Complains of rhinitis and try to get up to use urinal and desats into the low 80s with this. Counseled maintain his Vapotherm. Complains of pain behind his ear 10/14: Seen bedside. On 40 L/min 100% FiO2 with supplemental facemask. Has a little bit of an appetite. Significant desaturations with movement. No chest pain. Still short of breath with cough. Cardiac cath plans canceled. 10/13: Evaluated examined at bedside. Shortness of breath is a little bit worse and oxygenation has increased a little bit. Add on remdesivir today add doxycycline. 10/12: Evaluated and examined at bedside. Had just gotten back from bathroom a little SOB on increased O2 setting to sat back up but back up in 90's when seen. 10/11: Evaluate examined at bedside. Resting in bed. Understands this plan for procedure Thursday. Continuing COVID treatment. Plan discussed with bedside RN. 10/10: Patient evaluate examined at bedside. Was resting in bed really coughing. Informed of reason procedure pushed to Thursday with Covid positive. He u nderstood well. Will start dexamethasone and Rocephin for Covid positivity. Rocephin cover any bacterial pneumonias. As needed cough medicine. If he starts require oxygen can start remdesivir then. Otherwise continue to follow. Up ad felicity. Disposition: Disposition/Orders: Activity: Activity: Resume previous activity Medications: Home Meds Reported Medications Atorvastatin Calcium (LIPITOR) 10 Mg Tablet, 1 TAB PO QHS for cholesterol, #90 TAB 1 Refill 10/10/21 Lisinopril (LISINOPRIL) 20 Mg Tablet, 1 TAB PO DAILY, #30 TAB 5 Refills 08/11/14 Metformin Hcl (METFORMIN HCL) 500 Mg Tablet, 1 TAB PO BID, #60 TAB 3 Refills 08/11/14 Scheduled Atorvastatin Calcium (Lipitor), 1 TAB PO QHS, (Reported) Lisinopril (Lisinopril), 1 TAB PO DAILY, (Reported) Metformin Hcl (Metformin Hcl), 1 TAB PO BID, (Reported) Justicifation of Admission Dx: Justifications for Admission: Justification of Admission Dx: Yes NIKOLAI STANLEY MD Oct 23, 2021 10:53
== END 2021-10-23 06:01 | DRG 208 ==
LOC: ER 17:02 → ED HOLD 19:41 → 6 SOUTH 10-10 01:47 → 1 WEST ICU 10-18 14:07
PROVIDERS: ADMIT Internal Medicine; ATTEND Internal Medicine
PROC: 5A0935A Assistance with Respiratory Ventilation, Less than 24 Consecutive Hours, High Flow/Velocity Cannula (ICD-10-PCS; 2021-10-14)
PROC: XW033E5 Introduction of Remdesivir Anti-infective into Peripheral Vein, Percutaneous Approach, New Technology Group 5 (ICD-10-PCS; 2021-10-15)
PROC: 5A09457 Assistance with Respiratory Ventilation, 24-96 Consecutive Hours, Continuous Positive Airway Pressure (ICD-10-PCS; 2021-10-17)
PROC: 5A1945Z Respiratory Ventilation, 24-96 Consecutive Hours (ICD-10-PCS; principal; 2021-10-19)
PROC: 0BH17EZ Insertion of Endotracheal Airway into Trachea, Via Natural or Artificial Opening (ICD-10-PCS; 2021-10-19)
PROC: 02HV33Z Insertion of Infusion Device into Superior Vena Cava, Percutaneous Approach (ICD-10-PCS; 2021-10-19)
PROC: 5A1D70Z Performance of Urinary Filtration, Intermittent, Less than 6 Hours Per Day (ICD-10-PCS; 2021-10-22)
PROC: 02HV33Z Insertion of Infusion Device into Superior Vena Cava, Percutaneous Approach (ICD-10-PCS; 2021-10-23)
PROC: B548ZZA Ultrasonography of Superior Vena Cava, Guidance (ICD-10-PCS; 2021-10-23)
DX: U07.1 COVID-19 (principal); A41.89 Other specified sepsis; J12.82 Pneumonia due to coronavirus disease 2019; J96.01 Acute respiratory failure with hypoxia; J96.02 Acute respiratory failure with hypercapnia; N17.0 Acute kidney failure with tubular necrosis; R65.21 Severe sepsis with septic shock; E87.1 Hypo-osmolality and hyponatremia; E46 Unspecified protein-calorie malnutrition; D69.6 Thrombocytopenia, unspecified; E11.65 Type 2 diabetes mellitus with hyperglycemia; E66.01 Morbid (severe) obesity due to excess calories; E78.00 Pure hypercholesterolemia, unspecified; E78.5 Hyperlipidemia, unspecified; E87.5 Hyperkalemia; E87.8 Other disorders of electrolyte and fluid balance, not elsewhere classified; I10 Essential (primary) hypertension; J31.0 Chronic rhinitis; Z68.36 Body mass index [BMI] 36.0-36.9, adult; Z82.49 Family history of ischemic heart disease and other diseases of the circulatory system; Z96.659 Presence of unspecified artificial knee joint; M19.90 Unspecified osteoarthritis, unspecified site
CPT/HCPCS: 36415; 36556; 36569; 36600; 71045; 76937; 80048; 80053; 81001; 82805; 82962; 83605; 83735; 83880; 84100; 84443; 84478; 84484; 85007; 85025; 85520; 85610; 85730; 86317; 87040; 87340; 87428; 93005; 94002; 94003; 94660; 94760; 96361; 96374; C1892; G0238; J0171; J0282; J0330; J0696; J0780; J1100; J1160; J1644; J1650; J1815; J2060; J2250; J2270; J2370; J2405; J3010; J3475; J3480; J3490; J7030; J7040; J7050; J7060; J7121; P9046; 99285-25; G0378; Q0163